=== PATIENT | female | born 1945 | race Caucasian/White ===

== ENCOUNTER 2016-08-03 20:03 | Inpatient (IN) | payer MEDICARE ==
[2016-08-03] VITALS (10 sets, daily range): BP systolic 119–204; BP diastolic 64–87; PULSE 114–121; RESP 24–26; TEMP 98.1; O2SAT 91–97
[~2016-08-03] VITALS: Ht 154.9 cm; Wt 77.0 kg
[~2016-08-03 20:03] MED LIST: ALBU0.086 INH; AMLO2.5T PO; ASPI325T PO; ATRO17AE INH; CLON.2 PO; COZA50TA PO; LACT20SO4 PO; LEVO500T3 PO; LOPE2 PO; PRAV20 PO
--- NOTE | 2016-08-03 20:34 | PD ---
HPI Chief Complaint: Respiratory Distress Time Seen by Provider: 20:16 Travel History International Travel<30 days: No Contact w/Intl Traveler<30days: No Traveled to known affect area: No History of Present Illness HPI 71-year-old female complains of wheezing and shortness of breath. Patient has history of COPD. Patient states that she was taking her medication this evening and choke on the pill. Patient states that a pill may went down the wrong way, down her trachea. Patient states that she had persistent coughing subsequently. Patient denies any chest pain. Patient states that she has shortness of breath. Patient also has history hypertension. Patient denies any abdominal pain. Patient denies any nausea vomiting diarrhea. EMS was called. Patient was given Solu-Medrol 125 mg IV and albuterol treatment [address] to ED. Patient is on clonidine 3 times a day for blood pressure however did not take her medications today. PFSH Past Medical History Heart Rhythm Problems: Yes (tachy) Cancer: No Cardiovascular Problems: Yes COPD: Yes Diabetes: Yes (BORDERLINE) Diminished Hearing: No Endocrine: Yes Genitourinary: No Hypertension: Yes Musculoskeletal: No Neurologic: Yes (blind since ) Psychiatric: No Respiratory: Yes Menopausal: Yes Past Surgical History Eye Surgery: Yes ( AN ) Social History Alcohol Use: Yes (ON OCCASION) Tobacco Use: No Substance Use: No Allergies-Medications (Allergen,Severity, Reaction): Coded Allergies: Penicillin (Verified Allergy, Intermediate, Rash, 08/03/16) Reported Meds & Prescriptions Reported Meds & Active Scripts Active Reported Catapres (Clonidine) 0.2 Mg Tab 0.2 Mg PO TID Duoneb (Ipratropium-Albuterol Neb) 0.5-2.5 Mg/3 Ml Neb 1 Nebule INH Q4HR NEB Albuterol Neb (Albuterol Sulfate) 2.5 Mg/0.5 Ml Neb 2.5 Mg NEB Q4HR NEB PRN Note: The Albuterol Sulfate Inhalation Solution is concentrated and must be diluted. Read complete instructions carefully before using. Pravastatin 20 Mg Tab 20 Mg PO DAILY Cozaar (Losartan Potassium) 50 Mg Tab 50 Mg PO DAILY Review of Systems General / Constitutional: No: Fever Eyes: No: Visual changes HENT: No: Headaches Cardiovascular: No: Chest Pain or Discomfort Respiratory: Positive: Cough, Shortness of Breath, Wheezing Gastrointestinal: No: Abdominal Pain Genitourinary: No: Dysuria Musculoskeletal: No: Pain Skin: No Rash Neurologic: No: Weakness Psychiatric: No: Depression Endocrine: No: Polydipsia Hematologic/Lymphatic: No: Easy Bruising Physical Exam Narrative GENERAL: Well-nourished, well-developed patient. SKIN: Warm and dry. HEAD: Normocephalic. EYES: No scleral icterus. No injection or drainage. NECK: Supple, trachea midline. No JVD or lymphadenopathy. CARDIOVASCULAR: Regular rate and rhythm without murmurs, gallops, or rubs. RESPIRATORY: Breath sounds equal bilaterally. No accessory muscle use. Patient has moderate expiratory wheezes bilaterally. GASTROINTESTINAL: Abdomen soft, non-tender, nondistended. MUSCULOSKELETAL: No cyanosis, or edema. BACK: Nontender without obvious deformity. No CVA tenderness. Neurologic exam normal. Data Data Last Documented VS Vital Signs Date Time Temp Pulse Resp B/P Pulse Ox O2 Delivery O2 Flow Rate FiO2 08/03/16 23:59 97 Non-Rebreather 15.00 08/03/16 23:32 117 26 199/86 50 08/03/16 20:25 98.1 Orders Complete Blood Count With Diff (08/03/16 20:16) Comprehensive Metabolic Panel (08/03/16 20:16) B-Type Natriuretic Peptide (08/03/16 20:16) Act Partial Throm Time (Ptt) (08/03/16 20:16) Prothrombin Time / Inr (Pt) (08/03/16 20:16) Ckmb (Isoenzyme) Profile (08/03/16 20:16) Troponin I (08/03/16 20:16) Arterial Blood Gas (Abg) (08/03/16 20:16) Urinalysis - C+S If Indicated (08/03/16 20:16) Blood Culture (08/03/16 20:16) Iv Access Insert/Monitor (08/03/16 20:16) Electrocardiogram (08/03/16 20:16) Ecg Monitoring (08/03/16 20:16) Oximetry (08/03/16 20:16) Oxygen Administration (08/03/16 20:16) Chest, Single Ap (08/03/16 20:16) Albuterol-Ipratropium Neb (Duoneb Neb) (08/03/16 20:30) Lorazepam Inj (Ativan Inj) (08/03/16 21:30) Ct Thorax/ Chest W Iv Contrast (08/03/16 22:18) Hydralazine Inj (Apresoline Inj) (08/03/16 23:00) Iohexol 350 Inj (Omnipaque 350 Inj) (08/03/16 23:12) Hydralazine Inj (Apresoline Inj) (08/03/16 23:45) Albuterol-Ipratropium Neb (Duoneb Neb) (08/03/16 23:45) Levofloxacin 750 Mg Premix Inj (Levaquin (08/04/16 00:00) Pantoprazole Inj (Protonix Inj) (08/04/16 00:00) Levofloxacin 750 Mg Premix Inj (Levaquin (08/04/16 23:00) Methylprednisolone So Succ Inj (Solumedr (08/04/16 00:00) Budeson-Formot 160-4.5 Mg Inh (Symbicort (08/04/16 00:00) Guaifenesin Er (Mucinex Er) (08/04/16 09:00) Albuterol-Ipratropium Neb (Duoneb Neb) (08/04/16 08:00) Albuterol-Ipratropium Neb (Duoneb Neb) (08/04/16 00:00) ^ Initiate Protocol (08/03/16 23:55) ^ Instruction (08/03/16 23:55) [facility] Nursing Information (08/04/16 00:00) Chlorhexidine 2% Cloth (Chlorhexidine 2% (08/04/16 04:00) Chlorhexidine 2% Cloth (Chlorhexidine 2% (08/04/16 00:00) Mrsa Pcr Surveillance (08/03/16 23:55) Admit To Inpatient (08/03/16 ) Vital Signs (Adult) Q4H (08/03/16 23:55) Activity Oob With Assistance (08/03/16 23:55) Rn Hematology / Telemetry .CONTINUOUS (08/03/16 23:55) Intake + Output MOIRA.QSHIFT (08/03/16 23:55) Diet Regular Basic (08/04/16 Breakfast) Sodium Chloride 0.9% Flush (Ns Flush) (08/04/16 00:00) Sodium Chloride 0.9% Flush (Ns Flush) (08/04/16 09:00) Ondansetron Inj (Zofran Inj) (08/04/16 00:00) Bisacodyl Supp (Dulcolax Supp) (08/04/16 00:00) Comprehensive Metabolic Panel (08/04/16 06:00) Complete Blood Count With Diff (08/04/16 06:00) Scd Bilateral/Knee High MOIRA.BID (08/03/16 23:55) Carlos Bilateral/Knee High MOIRA.QSHIFT (08/03/16 23:55) Acetaminophen (Tylenol) (08/04/16 00:00) Acetamin-Hydrocod 325-5 Mg ([place] 5-325 (08/04/16 00:00) Acetamin-Hydrocod 325-10 Mg ([place] 10-32 (08/04/16 00:00) Inpatient Certification (08/03/16 ) Clonidine (Catapres) (08/04/16 09:00) Losartan (Cozaar) (08/04/16 09:00) Pravastatin (Pravachol) (08/04/16 09:00) Admit Order (Ed Use Only) (08/03/16 23:58) Labs Laboratory Tests Test 08/03/16 08/03/16 20:23 20:30 White Blood Count 13.6 TH/MM3 Red Blood Count 4.83 MIL/MM3 Hemoglobin 14.9 GM/DL Hematocrit 43.0 % Mean Corpuscular Volume 89.0 FL Mean Corpuscular Hemoglobin 30.8 PG Mean Corpuscular Hemoglobin 34.6 % Concent Red Cell Distribution Width 13.6 % Platelet Count 298 TH/MM3 Mean Platelet Volume 8.0 FL Neutrophils (%) (Auto) 80.8 % Lymphocytes (%) (Auto) 12.6 % Monocytes (%) (Auto) 5.5 % Eosinophils (%) (Auto) 0.5 % Basophils (%) (Auto) 0.6 % Neutrophils # (Auto) 11.0 TH/MM3 Lymphocytes # (Auto) 1.7 TH/MM3 Monocytes # (Auto) 0.7 TH/MM3 Eosinophils # (Auto) 0.1 TH/MM3 Basophils # (Auto) 0.1 TH/MM3 CBC Comment DIFF FINAL Differential Comment Prothrombin Time 10.5 SEC Prothromb Time International 1.0 RATIO Ratio Activated Partial 25.1 SEC Thromboplast Time Sodium Level 140 MEQ/L Potassium Level 3.0 MEQ/L Chloride Level 101 MEQ/L Carbon Dioxide Level 27.6 MEQ/L Anion Gap 11 MEQ/L Blood Urea Nitrogen 16 MG/DL Creatinine 1.22 MG/DL Estimat Glomerular Filtration 43 ML/MIN Rate Random Glucose 138 MG/DL Calcium Level 9.8 MG/DL Total Bilirubin 0.3 MG/DL Aspartate Amino Transf 23 U/L (AST/SGOT) Alanine Aminotransferase 36 U/L (ALT/SGPT) Alkaline Phosphatase 65 U/L Total Creatine Kinase 86 U/L Troponin I 0.09 NG/ML B-Type Natriuretic Peptide 55 PG/ML Total Protein 8.4 GM/DL Albumin 4.3 GM/DL Urine Color LIGHT-YELLOW Urine Turbidity CLEAR Urine pH 6.5 Urine Specific [place] 1.007 Urine Protein 100 mg/dL Urine Glucose (UA) NEG mg/dL Urine Ketones NEG mg/dL Urine Occult Blood NEG Urine Nitrite NEG Urine Bilirubin NEG Urine Urobilinogen LESS THAN 2.0 MG/DL Urine Leukocyte Esterase NEG Urine RBC 2 /hpf Urine WBC 1 /hpf Microscopic Urinalysis Comment CULT NOT INDICATED Blood Gas Puncture Site RT RADIAL Blood Gas Patient Temperature 98.6 Blood Gas HCO3 23 mmol/L Blood Gas Base Excess -0.8 mmol/L Blood Gas Oxygen Saturation 89 % Arterial Blood pH 7.41 Arterial Blood Partial 38 mmHg Pressure CO2 Arterial Blood Partial 61 mmHG Pressure O2 Arterial Blood Oxygen Content 19.4 Vol % Arterial Blood 1.8 % Carboxyhemoglobin Arterial Blood Methemoglobin 2.0 % Blood Gas Hemoglobin 15.6 G/DL Oxygen Delivery Device NASAL CANNULA Blood Gas Liter Flow 3 L/M [facility] Medical Decision Making Medical Screen Exam Complete: Yes Emergency Medical Condition: Yes Differential Diagnosis Differential diagnosis including acute exacerbation COPD, medication aspiration. Narrative Course 71-year-old female with coughing, wheezing, shortness of breath after she was taking her medication this evening. There is a possibility that a pill went down her trachea. Patient is wheezing now. No stridor. Patient was given albuterol 2 treatment and Solu-Medrol [address] IV [address] the way to ED. Albuterol with Atrovent unit dose treatment 2 given in the ED. 11:46 PM. Repeat albuterol with Atrovent unit treatment times one. Levaquin 750 g IV given. Hydralazine 10 mg IV 2 for blood pressure control. Diagnosis Primary Impression: COPD with acute exacerbation Additional Impression: Hypertension, uncontrolled Jose Wolfe MD Aug 03, 2016 20:34
[2016-08-03] MEDS ORDERED: COZA50TA PO (20:35)
[2016-08-03] MEDS ORDERED: PRAV20TA2 PO (20:35)
[2016-08-03] MEDS ORDERED: IPRASOL INH (20:35)
[2016-08-03] MEDS ORDERED: ALBU.5I NEB (20:35)
[2016-08-03] MEDS: RESP: ALBUTEROL 2.5 MG/IPRATROPIUM 0.5 MG NEB (SCH) INH ×2 (20:46→23:52)
--- NOTE | 2016-08-03 20:54 | RADRPT ---
EXAM DATE/TIME: 08/03/2016 20:42 [facility] COMPARISON: No previous studies available for comparison. INDICATIONS : Shortness of breath and cough. MEDICAL HISTORY : Chronic obstructive pulmonary disease. SURGICAL HISTORY : None. ENCOUNTER: Initial ACUITY: 1 day PAIN SCORE: 0/10 LOCATION: chest FINDINGS: A single view of the chest demonstrates the lungs to be symmetrically aerated without evidence of mas s, infiltrate or effusion. The cardiomediastinal contours are unremarkable. Osseous structures are intact. CONCLUSION: The lungs are clear. Klaus Wyatt MD on August 03, 2016 at 20:47 Board Certified Radiologist. This report was verified electronically.
[2016-08-03 21:12] LABS: BASOPHIL # 0.1 TH/MM3 (0-0.2); BASOPHIL % 0.6 % (0.0-2.0); EOSINOPHIL # 0.1 TH/MM3 (0-0.4); EOSINOPHIL % 0.5 % (0.0-4.0); HEMO FLAGS DIFF FINAL; LYMPH % 12.6 % (9.0-44.0); LYMPHOCYTE # 1.7 TH/MM3 (1.0-4.8); MEAN CORPUSCULAR HEMOGLOBIN 30.8 PG (27.0-34.0); MEAN CORPUSCULAR HGB CONC 34.6 % (32.0-36.0); MONO % 5.5 % (0.0-8.0); NEUT % 80.8 % (16.0-70.0); PLATELET COUNT 298 TH/MM3 (150-450); RED BLOOD COUNT 4.83 MIL/MM3 (4.00-5.30); RED CELL DISTRIBUTION WIDTH 13.6 % (11.6-17.2); WHITE BLOOD COUNT 13.6 TH/MM3 (4.0-11.0)
[2016-08-03 21:15] LABS: BLOOD, URINE NEG (NEG); GLUCOSE,URINE NEG (NEG); KETONE, URINE NEG (NEG); NITRITE,URINE NEG (NEG); PH, URINE 6.5 (5.0-8.5); URINE COLOR LIGHT-YELLOW (YELLW/STRAW)
[2016-08-03 21:17] LABS: COMMENT (UR) CULT NOT INDICATED; CULTURE IF INDICATED CULT NOT INDICATED
[2016-08-03 21:24] LABS: APTT (PATIENT) 25.1 SEC (24.3-30.1); PROTHROMBIN TIME - PATIENT 10.5 SEC (9.8-11.6)
[2016-08-03] MEDS ORDERED: LORazepam 2 MG/ML VIAL IV PUSH ONE (21:30)
[2016-08-03 21:33] LABS: ANION GAP 11 MEQ/L (5-15); AST (GOT) 23 U/L (15-37); BICARBONATE 27.6 MEQ/L (21.0-32.0); BLOOD UREA NITROGEN 16 MG/DL (7-18); CHLORIDE 101 MEQ/L (98-107); GLOMERULAR FILTRATION RATE 43 ML/MIN (>89); SODIUM (NA) 140 MEQ/L (136-145)
[2016-08-03 21:38] LABS: ALKALINE PHOSPHATASE 65 U/L (45-117); ALT (GPT) 36 U/L (10-53); TOTAL BILIRUBIN ADULT 0.3 MG/DL (0.2-1.0)
[2016-08-03 21:42] LABS: BLOOD GAS BASE EXCESS -0.8 mmol/L (-2-2); BLOOD GAS CARBOXYHEMOGLOBIN 1.8 % (0-4); BLOOD GAS HCO3 23 mmol/L (22-26); BLOOD GAS O2 HGB SATURATION 89 % (90-100); BLOOD GAS OXYGEN CONTENT 19.4 Vol % (12.0-20.0); BLOOD GAS PCO2 38 mmHg (38-42); BLOOD GAS PO2 61 mmHG (61-120); BLOOD GAS TOTAL HGB 15.6 G/DL (12.0-16.0); TEMP CORR TO 98.6
[2016-08-03 21:43] LABS: CRITICAL VALUE YES; DRAW SITE RT RADIAL; LITER FLOW 3 L/M; NUMBER OF ARTERIAL PUNCTURES 1; OXYGEN DEVICE NASAL CANNULA; STAT YES; ULNAR PULSE PRESENT
[2016-08-03 22:18] LABS: CREATINE KINASE 86 U/L (26-192)
[2016-08-03] MEDS ORDERED: CLON.2 PO (22:45)
[2016-08-03] MEDS ORDERED: hydrALAZINE HCL 20 MG/ML VIAL IV PUSH ONE ×2 (23:00→23:45)
[2016-08-03] MEDS ORDERED: IOHEXOL 350 MG/ML 10 ML VIAL (for RAD DIAG) IV ONE (23:12)
--- NOTE | 2016-08-03 23:31 | RADRPT ---
EXAM DATE/TIME: 08/03/2016 23:11 [facility] COMPARISON: CHEST SINGLE AP, August 03, 2016, 20:42. INDICATIONS : Shortness of breath. Possible pill aspiration. IV CONTRAST: 70 cc Omnipaque 350 (iohexol) IV RADIATION DOSE: 4.65 CTDIvol (mGy) MEDICAL HISTORY : Cardiovascular disease. Chronic obstructive pulmonary disease. Hypertension. SURGICAL HISTORY : None. ENCOUNTER: Initial ACUITY: 1 day PAIN SCALE: 2/10 LOCATION: chest TECHNIQUE: Volumetric scanning of the chest was performed. Using automated exposure control and adjustment of t he mA and/or kV according to patient size, radiation dose was kept as low as reasonably achievable to obtain optimal diagnostic quality images. FINDINGS: There is linear scarring versus subsegmental atelectasis right upper lobe with biapical parenchy mal scarring seen. Atherosclerotic calcifications of the aorta and coronary arteries are identified. In the lingula abutting the left ventricular apex, a soft tissue density nodule is seen measuring 2.4 x 1.4 cm. There are degenerative changes of the spine seen. There are no obvious endobronchial radio paque foreign bodies however there is a low attenuation focus in the bronchus intermedius measuring 9 mm which could reflect mucous plugging, secretions or endobronchial mass. No high-density foci are s een. CONCLUSION: There appears to be a low density focus in the bronchus intermedius as described above not a typical appearance for a aspirated foreign body however mucous plugging or mass, secretions can have this monica earance. Michael Judd MD on August 03, 2016 at 23:24 Board Certified Radiologist. This report was verified electronically.
[2016-08-03] MEDS ORDERED: RESP: ALBUTEROL 2.5 MG/IPRATROPIUM 0.5 MG NEB (SCH) INH ONE (23:45)
--- NOTE | 2016-08-03 23:59 | HHI.HP ---
[facility] Physician Freddy Colmenares MD Admission Diagnosis Diagnoses: Travel History International Travel<30 Days: No Contact w/Intl Traveler <30 Da: No Traveled to Known Affected Are: No Past Family Social History Allergies: Coded Allergies: Penicillin (Verified Allergy, Intermediate, Rash, 08/03/16) Physical Exam Vital Signs Vital Signs Date Time Temp Pulse Resp B/P Pulse Ox O2 Delivery O2 Flow Rate FiO2 08/03/16 23:32 117 26 199/86 94 Venturi Mask 50 08/03/16 22:43 117 24 204/85 95 Venturi Mask 50 08/03/16 21:34 114 24 198/87 95 Venturi Mask 50 08/03/16 21:14 116 26 195/86 94 Venturi Mask 50 08/03/16 21:13 94 Venturi Mask 50 08/03/16 20:54 96 Venturi Mask 6.00 50 08/03/16 20:36 96 Nasal Cannula 2 08/03/16 20:36 95 Nasal Cannula 2 08/03/16 20:30 92 Nasal Cannula 4.00 08/03/16 20:30 90 Room Air 08/03/16 20:25 98.1 121 26 119/64 91 Physical Exam GENERAL: This is a well-nourished, well-developed patient, in no apparent distress. SKIN: No rashes, ecchymoses or lesions. Cool and dry. HEAD: Atraumatic. Normocephalic. No temporal or scalp tenderness. EYES: Pupils equal round and reactive. Extraocular motions intact. No scleral icterus. No injection or drainage. ENT: Nose without bleeding, purulent drainage or septal hematoma. Throat without erythema, tonsillar hypertrophy or exudate. Uvula midline. Airway patent. NECK: Trachea midline. No JVD or lymphadenopathy. Supple, nontender, no meningeal signs. CARDIOVASCULAR: Regular rate and rhythm without murmurs, gallops, or rubs. RESPIRATORY: Clear to auscultation. Breath sounds equal bilaterally. No wheezes , rales, or rhonchi. GASTROINTESTINAL: Abdomen soft, non-tender, nondistended. No hepato-splenomegaly , or palpable masses. No guarding. MUSCULOSKELETAL: Extremities without clubbing, cyanosis, or edema. No joint tenderness, effusion, or edema noted. No calf tenderness. Negative Homans sign bilaterally. NEUROLOGICAL: Awake and alert. Cranial nerves II through XII intact. Motor and sensory grossly within normal limits. Five out of 5 muscle strength in all muscle groups. Normal speech. Laboratory Laboratory Tests Test 08/03/16 08/03/16 20:23 20:30 White Blood Count 13.6 Red Blood Count 4.83 Hemoglobin 14.9 Hematocrit 43.0 Mean Corpuscular Volume 89.0 Mean Corpuscular Hemoglobin 30.8 Mean Corpuscular Hemoglobin 34.6 Concent Red Cell Distribution Width 13.6 Platelet Count 298 Mean Platelet Volume 8.0 Neutrophils (%) (Auto) 80.8 Lymphocytes (%) (Auto) 12.6 Monocytes (%) (Auto) 5.5 Eosinophils (%) (Auto) 0.5 Basophils (%) (Auto) 0.6 Neutrophils # (Auto) 11.0 Lymphocytes # (Auto) 1.7 Monocytes # (Auto) 0.7 Eosinophils # (Auto) 0.1 Basophils # (Auto) 0.1 CBC Comment DIFF FINAL Differential Comment Prothrombin Time 10.5 Prothromb Time International 1.0 Ratio Activated Partial 25.1 Thromboplast Time Sodium Level 140 Potassium Level 3.0 Chloride Level 101 Carbon Dioxide Level 27.6 Anion Gap 11 Blood Urea Nitrogen 16 Creatinine 1.22 Estimat Glomerular Filtration 43 Rate Random Glucose 138 Calcium Level 9.8 Total Bilirubin 0.3 Aspartate Amino Transf 23 (AST/SGOT) Alanine Aminotransferase 36 (ALT/SGPT) Alkaline Phosphatase 65 Total Creatine Kinase 86 Troponin I 0.09 B-Type Natriuretic Peptide 55 Total Protein 8.4 Albumin 4.3 Urine Color LIGHT-YELLOW Urine Turbidity CLEAR Urine pH 6.5 Urine Specific [place] 1.007 Urine Protein 100 Urine Glucose (UA) NEG Urine Ketones NEG Urine Occult Blood NEG Urine Nitrite NEG Urine Bilirubin NEG Urine Urobilinogen LESS THAN 2.0 Urine Leukocyte Esterase NEG Urine RBC 2 Urine WBC 1 Microscopic Urinalysis Comment CULT NOT INDICATED Blood Gas Puncture Site RT RADIAL Blood Gas Patient Temperature 98.6 Blood Gas HCO3 23 Blood Gas Base Excess -0.8 Blood Gas Oxygen Saturation 89 Arterial Blood pH 7.41 Arterial Blood Partial 38 Pressure CO2 Arterial Blood Partial 61 Pressure O2 Arterial Blood Oxygen Content 19.4 Arterial Blood 1.8 Carboxyhemoglobin Arterial Blood Methemoglobin 2.0 Blood Gas Hemoglobin 15.6 Oxygen Delivery Device NASAL CANNULA Blood Gas Liter Flow 3 Date/Time Procedure Status Source Growth 08/03/16 20:23 Aerobic Blood Culture Received Blood Peripheral Pending 08/03/16 20:23 Anaerobic Blood Culture Received Blood Peripheral Pending Result Diagram: 08/03/16202208/03/162022 Physician Certification Order for Inpatient Services The services are ordered in accordance with Medicare regulations or non- Medicare payer requirements, as applicable. In the case of services not specified as inpatient-only, they are appropriately provided as inpatient services in accordance with the 2-midnight benchmark. days is the estimated time the patient will need to remain in the hospital, assuming treatment plan goals are met and no additional complications. Marcela Matias MD Aug 03, 2016 23:59
[2016-08-04] VITALS (24 sets, daily range): BP systolic 83–238; BP diastolic 44–111; PULSE 103–150; RESP 14–32; TEMP 97.9–98.6; O2SAT 96–100
[2016-08-04] MEDS ORDERED: ACETAMINOPHEN/HYDROcodone 325 MG/10 MG TAB PO PRN
[2016-08-04] MEDS ORDERED: LEVOFLOXACIN 750 MG PREMIX INJ 150 ML IV ONE
[2016-08-04] MEDS ORDERED: RESP: ALBUTEROL 2.5 MG/IPRATROPIUM 0.5 MG NEB (PRN) NEB
[2016-08-04] MEDS ORDERED: PANTOPRAZOLE SODIUM 40 MG VIAL IV PUSH ONE
[2016-08-04] MEDS ORDERED: SODIUM CHLORIDE 0.9% FLUSH 5 ML FLUSH FLUSH PRN
[2016-08-04] MEDS ORDERED: ACETAMINOPHEN/HYDROcodone 325 MG/5 MG TAB PO PRN
[2016-08-04] MEDS ORDERED: BISACODYL 10 MG SUPP PR PRN
[2016-08-04] MEDS ORDERED: ONDANSETRON HCL 4 MG/2 ML VIAL IVP PRN
[2016-08-04] MEDS ORDERED: LORazepam 2 MG/ML VIAL IV PUSH ONE (00:15)
[2016-08-04] MEDS ORDERED: hydrALAZINE HCL 20 MG/ML VIAL IV PUSH ONE (00:15)
[2016-08-04] MEDS ORDERED: ROCURONIUM INJ 50 MG/5 ML VIAL ONE (00:35)
[2016-08-04] MEDS ORDERED: ETOMIDATE 20 MG/10 ML VIAL ONE (00:35)
[2016-08-04] MEDS ORDERED: PROPOFOL 1000 MG/100 ML INJ 100 ML ONE (00:38)
[2016-08-04] MEDS ORDERED: ETOMIDATE 20 MG/10 ML VIAL IV PUSH ONE (00:45)
[2016-08-04] MEDS ORDERED: ROCURONIUM INJ 50 MG/5 ML VIAL IV ONE (00:45)
[2016-08-04] MEDS ORDERED: PROPOFOL 1000 MG/100 ML INJ 100 ML IV SCH ×2 (00:45)
[2016-08-04] MEDS ORDERED: ADENOSINE IV SOLN 3 MG/ML 2 ML VIAL ONE (00:49)
[2016-08-04] MEDS ORDERED: DILTIAZEM HCL 25 MG/5 ML VIAL ONE (01:00)
[2016-08-04] MEDS ORDERED: DILTIAZEM HCL 25 MG/5 ML VIAL IV ONE (01:00)
[2016-08-04] MEDS ORDERED: DILTIAZEM HCL 25 MG/5 ML VIAL IVP ONE (01:15)
[2016-08-04] MEDS ORDERED: DILTIAZEM INJ 125 MG in SODIUM CHLORIDE 0.9% INJ 100 ML IV SCH (01:15)
--- NOTE | 2016-08-04 01:24 | PD.CONS ---
HPI Service Critical Care Medicine Consult Requested By Primary Care Physician Freddy Colmenares MD History of Present Illness 71-year-old female presents complaining of wheezing and shortness of breath. Patient has history of COPD. She was taking her medication this evening and choke on the pill. The pill may went down the wrong way, down her trachea. She has had persistent coughing since then and felt wheezing. She denies any chest pain. She has had shortness of breat, was treated with aerosols and i.v. steroids, however without significant improvement and was intubated by ED attending. Review of Systems ROS Unable to obtain, patient is sedated and intubated Past Family Social History Allergies: Coded Allergies: Penicillin (Verified Allergy, Intermediate, Rash, 08/03/16) Past Medical History Hypertension for 7 years. COPD, patient states that she's never been on medication for this thinks she needs a nebulizer machine. Past Surgical History Left ankle surgery Eye surgery as an infant. Reported Medications Catapres (Clonidine) 0.2 Mg Tab 0.2 Mg PO TID Duoneb (Ipratropium-Albuterol Neb) 0.5-2.5 Mg/3 Ml Neb 1 Nebule INH Q4HR NEB Albuterol Neb (Albuterol Sulfate) 2.5 Mg/0.5 Ml Neb 2.5 Mg NEB Q4HR NEB PRN Note: The Albuterol Sulfate Inhalation Solution is concentrated and must be diluted. Read complete instructions carefully before using. Pravastatin 20 Mg Tab 20 Mg PO DAILY Cozaar (Losartan Potassium) 50 Mg Tab 50 Mg PO DAILY Active Ordered Medications Current Medications Medications (Trade) Dose Ordered Sig/Pavan Route PRN Reason Start Time Stop Time Status Last Admin Dose Admin Budesonide/ Formoterol Fumarate (Symbicort 160-4.5 Inh) 2 puff Q12HR INH 08/04/16 00:00 Guaifenesin (Mucinex Er) 600 mg BID PO 08/04/16 09:00 Miscellaneous Information 1 Q361D XX 08/04/16 00:00 Chlorhexidine Gluconate (Chlorhexidine 2% Cloth) 3 pack Taper DAILY@04 TOP 08/04/16 04:00 07/31/17 03:59 Chlorhexidine Gluconate (Chlorhexidine 2% Cloth) 3 pack UNSCH PRN TOP HYGIENIC CARE 08/04/16 00:00 Bisacodyl (Dulcolax Supp) 10 mg DAILY PRN OR CONSTIPATION 08/04/16 00:00 Acetaminophen (Tylenol) 650 mg Q6H PRN PO FEVER/PAIN SCALE 1 TO 2 08/04/16 00:00 Acetaminophen/ Hydrocodone Bitart ([place] 5-325 Mg) 1 tab Q4H PRN PO PAIN SCALE 3 TO 5 08/04/16 00:00 Acetaminophen/ Hydrocodone Bitart ([place] 10-325 Mg) 1 tab Q4H PRN PO PAIN SCALE 6 TO 10 08/04/16 00:00 Clonidine (Catapres) 0.2 mg TID PO 08/04/16 09:00 Losartan Potassium (Cozaar) 50 mg DAILY PO 08/04/16 09:00 Pravastatin Sodium 20 mg 20 mg DAILY PO 08/04/16 09:00 Levofloxacin/ Dextrose 150 ml @ 100 mls/hr Q48H IV 08/06/16 00:00 Diltiazem HCl 125 mg/Sodium Chloride 125 ml @ 0 mls/hr TITRATE IV 08/04/16 01:15 08/04/16 01:44 Potassium Chloride 100 ml @ 50 mls/hr BOLUS ONCE IV 08/04/16 01:30 08/04/16 03:29 Sodium Chloride (NS 1000 ml Inj) 1,000 ml @ 84 mls/hr [id number] IV 08/04/16 01:18 IV Flush (NS Flush) 2 ml UNSCH PRN IV FLUSH FLUSH AFTER USING IV ACCESS 08/04/16 01:30 IV Flush (NS Flush) 2 ml BID IV FLUSH 08/04/16 09:00 Acetaminophen (Tylenol) 650 mg Q6H PRN PO FEVER >101F 08/04/16 01:30 Morphine Sulfate (Morphine Inj) 2 mg Q2H PRN IV PAIN SCALE 6 TO 10 08/04/16 01:30 Famotidine (Pepcid Inj) 10 mg Q12HR IV PUSH 08/04/16 09:00 Artificial Tears (Tears Naturale Opth Soln) 1 drop TID EACH EYE 08/04/16 09:00 Ondansetron HCl (Zofran Inj) 4 mg Q6H PRN IV NAUSEA OR VOMITING 08/04/16 01:30 Metoclopramide HCl (Reglan Inj) 10 mg Q6H PRN IV NAUSEA OR VOMITING 08/04/16 01:30 Docusate Sodium (Colace Liq) 100 mg Q12H G-TUBE 08/04/16 09:00 Heparin Sodium (Porcine) (Heparin Inj) 5,000 units Q8H SQ 08/04/16 02:00 Miscellaneous Information 1 Q361D XX 08/04/16 01:30 Chlorhexidine Gluconate (Chlorhexidine 2% Cloth) 3 pack Taper DAILY@04 TOP 08/04/16 04:00 07/31/17 03:59 Chlorhexidine Gluconate 3 pack 3 pack UNSCH PRN TOP HYGIENIC CARE 08/04/16 01:30 Propofol (Diprivan 1000 Mg/100ml Inj) 100 ml @ 0 mls/hr TITRATE IV 08/04/16 01:30 Hydralazine HCl (Apresoline Inj) 20 mg Q4H PRN IV PUSH SBP>160, DBP>90 08/04/16 01:30 Methylprednisolone Sodium Succinate (SoluMEDROL INJ) 40 mg Q6HR IV PUSH 08/04/16 06:00 Family History Noncontributory Social History No alcohol or illicit drug abuse Physical Exam Vital Signs Vital Signs Date Time Temp Pulse Resp B/P Pulse Ox O2 Delivery O2 Flow Rate FiO2 08/04/16 00:33 99 Non-Rebreather 08/04/16 00:33 141 219/89 08/04/16 00:26 BiPAP 08/04/16 00:12 133 26 212/111 99 Non-Rebreather 08/04/16 00:05 99 Non-Rebreather 08/03/16 23:59 97 Non-Rebreather 15.00 08/03/16 23:32 117 26 199/86 94 Venturi Mask 50 08/03/16 22:43 117 24 204/85 95 Venturi Mask 50 08/03/16 21:34 114 24 198/87 95 Venturi Mask 50 08/03/16 21:14 116 26 195/86 94 Venturi Mask 50 08/03/16 21:13 94 Venturi Mask 50 08/03/16 20:54 96 Venturi Mask 6.00 50 08/03/16 20:36 96 Nasal Cannula 2 08/03/16 20:36 95 Nasal Cannula 2 08/03/16 20:30 92 Nasal Cannula 4.00 08/03/16 20:30 90 Room Air 08/03/16 20:25 98.1 121 26 119/64 91 Physical Exam GENERAL: Well-nourished, well-developed patient, sedated and intubated SKIN: Warm and dry. HEAD: Normocephalic. EYES: No scleral icterus. No injection or drainage. NECK: Supple, trachea midline. No JVD or lymphadenopathy. CARDIOVASCULAR: Regular rate and rhythm without murmurs, gallops, or rubs. RESPIRATORY: Breath sounds equal bilaterally. No accessory muscle use. GASTROINTESTINAL: Abdomen soft, non-tender, nondistended. MUSCULOSKELETAL: No cyanosis, or edema. BACK: Nontender without obvious deformity. No CVA tenderness. Laboratory Laboratory Tests Test 08/03/16 08/03/16 20:23 20:30 White Blood Count 13.6 Red Blood Count 4.83 Hemoglobin 14.9 Hematocrit 43.0 Mean Corpuscular Volume 89.0 Mean Corpuscular Hemoglobin 30.8 Mean Corpuscular Hemoglobin 34.6 Concent Red Cell Distribution Width 13.6 Platelet Count 298 Mean Platelet Volume 8.0 Neutrophils (%) (Auto) 80.8 Lymphocytes (%) (Auto) 12.6 Monocytes (%) (Auto) 5.5 Eosinophils (%) (Auto) 0.5 Basophils (%) (Auto) 0.6 Neutrophils # (Auto) 11.0 Lymphocytes # (Auto) 1.7 Monocytes # (Auto) 0.7 Eosinophils # (Auto) 0.1 Basophils # (Auto) 0.1 CBC Comment DIFF FINAL Differential Comment Prothrombin Time 10.5 Prothromb Time International 1.0 Ratio Activated Partial 25.1 Thromboplast Time Sodium Level 140 Potassium Level 3.0 Chloride Level 101 Carbon Dioxide Level 27.6 Anion Gap 11 Blood Urea Nitrogen 16 Creatinine 1.22 Estimat Glomerular Filtration 43 Rate Random Glucose 138 Calcium Level 9.8 Total Bilirubin 0.3 Aspartate Amino Transf 23 (AST/SGOT) Alanine Aminotransferase 36 (ALT/SGPT) Alkaline Phosphatase 65 Total Creatine Kinase 86 Troponin I 0.09 B-Type Natriuretic Peptide 55 Total Protein 8.4 Albumin 4.3 Urine Color LIGHT-YELLOW Urine Turbidity CLEAR Urine pH 6.5 Urine Specific [place] 1.007 Urine Protein 100 Urine Glucose (UA) NEG Urine Ketones NEG Urine Occult Blood NEG Urine Nitrite NEG Urine Bilirubin NEG Urine Urobilinogen LESS THAN 2.0 Urine Leukocyte Esterase NEG Urine RBC 2 Urine WBC 1 Microscopic Urinalysis Comment CULT NOT INDICATED Blood Gas Puncture Site RT RADIAL Blood Gas Patient Temperature 98.6 Blood Gas HCO3 23 Blood Gas Base Excess -0.8 Blood Gas Oxygen Saturation 89 Arterial Blood pH 7.41 Arterial Blood Partial 38 Pressure CO2 Arterial Blood Partial 61 Pressure O2 Arterial Blood Oxygen Content 19.4 Arterial Blood 1.8 Carboxyhemoglobin Arterial Blood Methemoglobin 2.0 Blood Gas Hemoglobin 15.6 Oxygen Delivery Device NASAL CANNULA Blood Gas Liter Flow 3 Date/Time Procedure Status Source Growth 08/03/16 20:23 Aerobic Blood Culture Received Blood Peripheral Pending 08/03/16 20:23 Anaerobic Blood Culture Received Blood Peripheral Pending Result Diagram: 08/03/16202208/03/162022 Imaging Last [address] 08/03/162217 Signed Impressions: Service Date/Time: Wednesday, August 03, 2016 23:11 - CONCLUSION: There appears to be a low density focus in the bronchus intermedius as described above not a typical appearance for a aspirated foreign body however mucous plugging or mass, secretions can have this appearance. Michael Judd MD Chest X-Ray 08/03/162015 Signed Impressions: Service Date/Time: Wednesday, August 03, 2016 20:42 - CONCLUSION: The lungs are clear. Klaus Wyatt MD Assessment and Plan Problem List: (1) Hypertensive urgency ICD Code: I10 Status: Acute (2) COPD with acute exacerbation ICD Code: J44.1 Status: Acute (3) Acute respiratory failure ICD Code: J96.00 Status: Acute Assessment and Plan Respiratory failure - mechanical ventilation - repeat ABG and CXR - aerosols scheduled and PRN COPD exacerbation - i.v. steroids - duonebs - steroid taper off when wheezing improves HTN - Cardene gtt - Clonidine - Losartan - Hydralazine PRN - SBP goal < 160 Nutrition - TF DVT/GI prophylaxis Lovenox/Pepcid Critical Care: The total critical care time was 35 minutes. Time to perform other separately billable procedures was not included in the critical care time. Miguel Sanders MD Aug 04, 2016 01:24
[2016-08-04] MEDS ORDERED: CHLORHEXIDINE GLUCONATE 2 % 1 PACK (2 CLOTHS) TOP PRN ×2 (01:30)
[2016-08-04] MEDS ORDERED: SODIUM CHLORIDE 0.9% FLUSH 5 ML FLUSH IV FLUSH PRN (01:30)
[2016-08-04] MEDS ORDERED: MISCELLANEOUS NURSING INFORMATION XX SCH ×2 (01:30)
[2016-08-04] MEDS ORDERED: POTASSIUM CHLOR 20 MEQ PREMIX 100 ML IV ONE (01:30)
[2016-08-04] MEDS ORDERED: MORPHINE SULFATE 4 MG/ML INJ IV PRN (01:30)
[2016-08-04] MEDS ORDERED: ACETAMINOPHEN 325 MG TAB PO PRN ×2 (01:30)
[2016-08-04] MEDS ORDERED: DILTIAZEM HCL 25 MG/5 ML VIAL IVP PRN (01:30)
[2016-08-04] MEDS ORDERED: RESP: ALBUTEROL 2.5 MG/IPRATROPIUM 0.5 MG NEB (PRN) INH (01:30)
--- NOTE | 2016-08-04 01:30 | RADRPT ---
EXAM DATE/TIME: 08/04/2016 01:21 [facility] COMPARISON: CHEST SINGLE AP, August 03, 2016, 20:42. INDICATIONS : Evaluate ETT placement and OG placement. MEDICAL HISTORY : Hypertension. Chronic obstructive pulmonary disease. Cardiovascular disease. SURGICAL HISTORY : None. ENCOUNTER: Initial ACUITY: 1 day PAIN SCORE: Non-responsive. LOCATION: Bilateral chest FINDINGS: OG tube courses beneath the diaphragm. Endotracheal tube tip terminates 3 cm above the ally. There is no consolidation or effusion. Osseous structures are intact.CONCLUSION: Endotracheal tube as described above and OG tube as above. Michael Judd MD on August 04, 2016 at 1:28 Board Certified Radiologist. This report was verified electronically.
[2016-08-04] MEDS: SODIUM CHLOR 0.9% 1000 ML INJ 1,000 ML IV SCH ×2 (02:15→13:17)
[2016-08-04] MEDS: HEPARIN SODIUM - SQ 10,000 UNITS/ML VIAL SQ SCH ×3 (02:29→18:23)
[2016-08-04] MEDS: CHLORHEXIDINE GLUCONATE 2 % 1 PACK (2 CLOTHS) TOP SCH (02:29)
[2016-08-04] MEDS: RESP: ALBUTEROL 2.5 MG/IPRATROPIUM 0.5 MG NEB (SCH) INH ×6 (03:14→23:44)
[2016-08-04] MEDS ORDERED: CHLORHEXIDINE GLUCONATE 2 % 1 PACK (2 CLOTHS) TOP SCH (04:00)
[2016-08-04] MEDS: PROPOFOL 1000 MG/100 ML INJ 100 ML IV SCH ×2 (04:49→09:39)
[2016-08-04] MEDS ORDERED: methylPREDNISolone SOD SUCC 40 MG/1 ML VIAL IV PUSH SCH ×2 (06:00)
[2016-08-04 07:08] LABS: AUTOMATED NEUTROPHIL # 15.5 TH/MM3 (1.8-7.7); BASOPHIL # 0.1 TH/MM3 (0-0.2); BASOPHIL % 0.3 % (0.0-2.0); HEMATOCRIT 45.1 % (35.0-46.0); HEMO FLAGS DIFF FINAL; LYMPH % 4.3 % (9.0-44.0); LYMPHOCYTE # 0.8 TH/MM3 (1.0-4.8); MEAN CELL VOLUME 90.6 FL (80.0-100.0); MEAN CORPUSCULAR HEMOGLOBIN 29.6 PG (27.0-34.0); MEAN CORPUSCULAR HGB CONC 32.7 % (32.0-36.0); MONO % 7.4 % (0.0-8.0); PLATELET COUNT 323 TH/MM3 (150-450); RED BLOOD COUNT 4.98 MIL/MM3 (4.00-5.30); RED CELL DISTRIBUTION WIDTH 13.7 % (11.6-17.2); WHITE BLOOD COUNT 17.6 TH/MM3 (4.0-11.0)
[2016-08-04 07:29] LABS: ALT (GPT) 35 U/L (10-53); ANION GAP 17 MEQ/L (5-15); AST (GOT) 33 U/L (15-37); BICARBONATE 20.8 MEQ/L (21.0-32.0); BLOOD UREA NITROGEN 18 MG/DL (7-18); CHLORIDE 102 MEQ/L (98-107); GLOMERULAR FILTRATION RATE 34 ML/MIN (>89); POTASSIUM 3.5 MEQ/L (3.5-5.1); SODIUM (NA) 140 MEQ/L (136-145)
[2016-08-04 07:32] LABS: ALKALINE PHOSPHATASE 56 U/L (45-117); TOTAL BILIRUBIN ADULT 0.5 MG/DL (0.2-1.0)
[2016-08-04] MEDS ORDERED: RESP: ALBUTEROL 2.5 MG/IPRATROPIUM 0.5 MG NEB (SCH) NEB (08:00)
[2016-08-04] MEDS: ARTIFICIAL TEARS OPTH SOLN 15 ML BTL EACH EYE SCH ×3 (08:22→18:25)
[2016-08-04] MEDS: SODIUM CHLORIDE 0.9% FLUSH 5 ML FLUSH IV FLUSH SCH ×2 (08:23→22:00)
[2016-08-04] MEDS: cloNIDine HCL 0.2 MG TAB PO SCH ×3 (08:23→18:00)
[2016-08-04] MEDS: BUDESONIDE-FORMOTEROL 160/4.5 MCG INHALER INH SCH ×3 (08:23→21:00)
[2016-08-04] MEDS ORDERED: DOCUSATE SODIUM 100 MG/10 ML UDC G-TUBE SCH (09:00)
[2016-08-04] MEDS ORDERED: LOSARTAN 50 MG TAB PO SCH (09:00)
[2016-08-04] MEDS ORDERED: FAMOTIDINE 20 MG/2 ML VIAL IV PUSH SCH (09:00)
[2016-08-04] MEDS ORDERED: PRAVASTATIN SOD 20 MG TAB PO SCH ×2 (09:00→21:00)
[2016-08-04] MEDS ORDERED: guaiFENesin E.R. 600 MG TAB PO SCH (09:00)
[2016-08-04] MEDS ORDERED: SODIUM CHLORIDE 0.9% FLUSH 5 ML FLUSH FLUSH SCH (09:00)
[2016-08-04] MEDS ORDERED: GLUCAGON 1 MG/ML VIAL OTHER PRN (09:45)
[2016-08-04] MEDS ORDERED: DEXTROSE 50% IN WATER 50 ML VIAL(D50) IV PUSH PRN (09:45)
[2016-08-04] MEDS ORDERED: MIDAZOLAM 100 MG/ML INJ 100 ML IV SCH (09:45)
[2016-08-04] MEDS ORDERED: SENNOSIDES 8.6 MG TAB PO PRN ×2 (09:45)
[2016-08-04] MEDS ORDERED: MAGNESIUM SULFATE 1 GM PREMIX 100 ML IV ONE (09:45)
[2016-08-04] MEDS ORDERED: POTASSIUM CL 40 MEQ/30 ML LIQ UDC PO ONE (09:45)
[2016-08-04] MEDS: fentaNYL DRIP 250 ML IV SCH (09:55)
--- NOTE | 2016-08-04 09:58 | HHI.CCPN ---
Subjective Remarks/Hospital Course 71-year-old female presents complaining of wheezing and shortness of breath. Patient has history of COPD. She was taking her medication this evening and choke on the pill. The pill may went down the wrong way, down her trachea. She has had persistent coughing since then and felt wheezing. She denies any chest pain. She has had shortness of breat, was treated with aerosols and i.v. steroids, however without significant improvement and was intubated by ED attending. Subjective 08/04: Afebrile. Awake on the ventilator. Currently in sinus tachycardia. Tube feeds been initiated. No bowel movement. Objective Vital Signs Date Time Temp Pulse Resp B/P Pulse Ox O2 Delivery O2 Flow Rate FiO2 08/04/16 07:20 100 50 08/04/16 06:00 119 08/04/16 04:00 98.2 22 107/50 08/04/16 02:10 Ventilator 08/03/16 23:59 15.00 Result Diagram: 08/04/16 0337 08/04/16 0337 Other Results Microbiology Date/Time Procedure Status Source Growth 08/04/16 01:00 Gram Stain - Final Resulted Sputum Endotracheal 08/04/16 01:00 Sputum Culture Resulted Sputum Endotracheal Pending 08/03/16 20:23 Aerobic Blood Culture Received Blood Peripheral Pending 08/03/16 20:23 Anaerobic Blood Culture Received Blood Peripheral Pending Imaging Last Impressions Chest X-Ray 08/04/16 0109 Signed Impressions: Service Date/Time: Thursday, August 04, 2016 01:21 - CONCLUSION: Endotracheal tube as described above and OG tube as above. Michael Judd MD Chest CT 08/03/16 2218 Signed Impressions: Service Date/Time: Wednesday, August 03, 2016 23:11 - CONCLUSION: There appears to be a low density focus in the bronchus intermedius as described above not a typical appearance for a aspirated foreign body however mucous plugging or mass, secretions can have this appearance. Michael Judd MD Objective Remarks GENERAL: 71-year-old female, critically ill currently orotracheally intubated SKIN: Warm and dry. No rash HEAD: Normocephalic. EYES: No scleral icterus. No injection or drainage. NECK: Supple, trachea midline. No JVD or lymphadenopathy. CARDIOVASCULAR: Tachycardic, RR. S1, S2 no S4. Without murmurs RESPIRATORY: Breath sounds equal bilaterally. Positive expiratory wheeze right- sided. Fine crackles patient the bases. GASTROINTESTINAL: Abdomen soft, non-tender, nondistended. Hypoactive bowel sounds are appreciated MUSCULOSKELETAL: Trace lower extremity edema. A/P Problem List: (1) Hypertensive urgency ICD Code: I10 Status: Acute (2) COPD with acute exacerbation ICD Code: J44.1 Status: Acute (3) Acute respiratory failure ICD Code: J96.00 Status: Acute Assessment and Plan Neuro/Psych: Currently on propofol/fentanyl and Versed drips for sedation/analgesia while intubated Goal of RASS -2 Daily sedation vacation Acetaminophen for fever CV: Sinus tachycardia Hypertensive emergency Dyslipidemia Elevated troponin - likely strain Grade 1 diastolic dysfunction Holding home medication Cozaar 50 mg daily with acute kidney injury. Resume clonidine 0.2 g by mouth 3 times a day. On pravastatin 20 mg daily for dyslipidemia. Okay to resume Echocardiogram - 2013 - grade 1 diastolic dysfunction. Mild LVH. Ejection fraction 60%. Mild MR. GILLIAN 31 mmHg Recheck with elevated troponin. Likely secondary to strain secondary sinus tachycardia Serial troponins Resp: Acute respiratory failure COPD Possible foreign body ingestion/pill ACV 14/500/40 CT chest revealed scarring right upper lobe/bilateral lobes. ASCVD. 1.42.1 cm soft tissue mass mass possible aspiration possibly pill. Right bronchus intermedius with 9 mm mass possibly pill ingestion possibly mucus plugging. Bronchodilator therapy every 6 hours and as needed Solu-Medrol 40 mg IV every 8 hours/pulmonary Spontaneous breathing trials when clinically indicated Pulmonary consult for possible mass congestion GI: Started on Jevity 1.5 goal 55 cc an hour Protonix for GI prophylaxis Colace/as needed Senokot for bowel regimen : Stephen for accurate I's and O's in a critically ill patient Endo: Sliding-scale insulin with Accu-Cheks to maintain euglycemia Check TSH Renal: Acute kidney injury Avoid nephrotoxic drugs Currently in normal saline at 84 cc an hour Heme: Leukocytosis Follow CBC name. Monitor trends ID: Possible aspiration Pertinent cultures Blood cultures 2 - pending Sputum - gram-positive cocci in pairs FEN: Hypopotassemia Electrolyte protocol initiated. Replace potassium today. Recheck MSK: PT evaluate and treat Access - Utilize peripheral IV. Central line if indicated Prophylaxis - GI - Protonix - DVT - SCD/Lovenox Critical Care: The total additional critical care time was 35 minutes. Time to perform other separately billable procedures was not included in the critical care time. Edy Mackay MD Aug 04, 2016 09:58
[2016-08-04] MEDS ORDERED: NITROGLYCERIN 2% OINT 1 GM PACKET TOPICAL PRN (10:15)
[2016-08-04] MEDS: PANTOPRAZOLE SODIUM 40 MG VIAL IV PUSH SCH (11:13)
--- NOTE | 2016-08-04 12:24 | EKG ---
Date Performed: 08/03/2016 Time Performed: 20:46:52 PTAGE: 71 years EKG: SINUS TACHYCARDIA ABNORMAL ECG PREVIOUS TRACING : 07/19/2013 05.21 Since previous tracing, no significant change noted DOCTOR: Kevin Seals Interpretating Date/Time 08/04/2016 12:23:27
[2016-08-04] MEDS: INSULIN NovoLIN REGULAR SUPPLEMENTAL SCALE SQ SCH ×2 (12:25→18:23)
[2016-08-04] MEDS: methylPREDNISolone SOD SUCC 40 MG/1 ML VIAL IV PUSH SCH ×2 (13:22→22:02)
--- NOTE | 2016-08-04 14:06 | EKG ---
Date Performed: 08/04/2016 Time Performed: 11:53:33 PTAGE: 71 years EKG: SINUS TACHYCARDIA NONSPECIFIC ST & T-WAVE ABNORMALITY ABNORMAL RHYTHM ECG PREVIOUS TRACING : 08/03/2016 20.46 No significant change from previous tracing noted. DOCTOR: Best Roy Interpretating Date/Time 08/04/2016 14:04:35
[2016-08-04] MEDS ORDERED: ASPIRIN 81 MG CHEW TAB CHEW ONE (15:45)
[2016-08-04] MEDS ORDERED: DEXT 5%-NACL 0.45% 1000 ML INJ 1,000 ML IV SCH (16:00)
[2016-08-04] MEDS: METOPROLOL TARTRATE 5 MG/5 ML VIAL IV PUSH SCH ×2 (16:00→22:00)
[2016-08-04] MEDS: guaiFENesin SOLUTION 200 MG/10 ML CUP PO SCH ×2 (16:16→22:07)
[2016-08-04] MEDS: DOCUSATE SODIUM 100 MG CAP PO SCH (19:49)
[2016-08-04] MEDS: CHLORHEXIDINE 0.12% (ORAL KIT) 15 ML CUP MT SCH (19:49)
--- NOTE | 2016-08-04 19:56 | MB ---
cc: ELMA PERRY DATE OF CONSULTATION 08/04/2016 REASON FOR CONSULTATION A 71-year-old white female admitted with wheezing, shortness of breath. She might have aspirated a pill. She was eventually intubated for respiratory failure. She has a history of COPD. She has no previous cardiac history. She was found to have elevated troponin. She has not had any chest pain. PAST MEDICAL HISTORY Positive for: 1. Hypertension. 2. Chronic obstructive pulmonary disease. 3. History of dyslipidemia. 4. No history of diabetes, coronary artery disease PAST SURGICAL HISTORY 1. Ankle surgery. 2. Eye surgery. MEDICATIONS 2. DuoNeb. 3. Albuterol. 4. Pravastatin. 5. Cozaar. ALLERGIES PENICILLIN. SOCIAL HISTORY She does not smoke. She does not drink alcohol. FAMILY HISTORY Negative for heart disease. REVIEW OF SYSTEMS Otherwise negative. PHYSICAL EXAMINATION VITAL SIGNS: Blood pressure 112/70, pulse 103 and regular. HEENT: The patient is intubated and sedated. 2+ carotid upstroke. No bruits. LUNGS: With a few rhonchi. HEART: Regular with no murmur, gallop or rub. ABDOMEN: Soft. No bruits. EXTREMITIES: With trace edema. 1+ distal pulses. NEUROLOGICAL: Grossly nonfocal. EKG was reviewed and showed sinus tachycardia. No acute changes. LABORATORY DATA Hemoglobin 14.7. Potassium 3.5. Creatinine 1.5. Magnesium 1.4. Troponin 0.57 and 2.51. DIAGNOSES 1. Acute respiratory failure. 2. Acute chronic obstructive pulmonary disease exacerbation. 3. Hypertensive urgency. 4. Abnormal troponin. 5. Sinus tachycardia. 6. Dyslipidemia. 7. Possible foreign body aspiration. 8. Acute renal insufficiency. DISPOSITION Ms. Richardson will be monitored in the intensive care unit. We will obtain serial enzymes and EKGs. We will obtain an echocardiogram to evaluate her left ventricular function. She will later need a stress test to evaluate for ischemia. I will follow her for cardiology during her hospitalization. I recommend to continue her medications for blood pressure control. Pulmonary evaluation was also requested. Elma Perry MD OQ/KK /6:02 PM /7:36 PM FLEX
[2016-08-04] MEDS ORDERED: DOCUSATE SODIUM 100 MG/10 ML UDC PO SCH (21:00)
[2016-08-05] VITALS (17 sets, daily range): BP systolic 86–154; BP diastolic 49–76; PULSE 79–119; RESP 14–32; TEMP 98.1–99.4; O2SAT 95–100
[2016-08-05] MEDS: INSULIN NovoLIN REGULAR SUPPLEMENTAL SCALE SQ SCH ×4 (00:42→17:00)
[2016-08-05] MEDS: HEPARIN SODIUM - SQ 10,000 UNITS/ML VIAL SQ SCH ×3 (00:44→17:00)
[2016-08-05 02:00] LABS: AUTOMATED NEUTROPHIL # 14.8 TH/MM3 (1.8-7.7); BASOPHIL # 0.1 TH/MM3 (0-0.2); BASOPHIL % 0.6 % (0.0-2.0); HEMATOCRIT 41.1 % (35.0-46.0); LYMPH % 3.2 % (9.0-44.0); LYMPHOCYTE # 0.5 TH/MM3 (1.0-4.8); MEAN CELL VOLUME 91.1 FL (80.0-100.0); MEAN CORPUSCULAR HEMOGLOBIN 30.1 PG (27.0-34.0); MONO % 5.2 % (0.0-8.0); PLATELET COUNT 253 TH/MM3 (150-450); RED BLOOD COUNT 4.52 MIL/MM3 (4.00-5.30); RED CELL DISTRIBUTION WIDTH 14.1 % (11.6-17.2); WHITE BLOOD COUNT 16.3 TH/MM3 (4.0-11.0)
[2016-08-05 02:04] LABS: HEMO FLAGS AUTO DIFF
[2016-08-05 02:27] LABS: ALKALINE PHOSPHATASE 43 U/L (45-117); ALT (GPT) 32 U/L (10-53); ANION GAP 8 MEQ/L (5-15); AST (GOT) 54 U/L (15-37); BICARBONATE 24.9 MEQ/L (21.0-32.0); BLOOD UREA NITROGEN 28 MG/DL (7-18); CHLORIDE 108 MEQ/L (98-107); GLOMERULAR FILTRATION RATE 45 ML/MIN (>89); HDL CHOLESTEROL 40.8 MG/DL (40.0-60.0); POTASSIUM 4.7 MEQ/L (3.5-5.1); SODIUM (NA) 141 MEQ/L (136-145); TOTAL BILIRUBIN ADULT 0.4 MG/DL (0.2-1.0)
[2016-08-05] MEDS: PROPOFOL 1000 MG/100 ML INJ 100 ML IV SCH ×2 (02:35→13:18)
[2016-08-05 02:42] LABS: BANDS 20 % (0-6); NEUTROPHIL # MANUAL DIFF 15.8 TH/MM3 (1.8-7.7); PLATELET ESTIMATE SMEAR NORMAL (NORMAL); PLATELET MORPHOLOGY NORMAL (NORMAL); POLYS (SEG NEUTROPHILS) 77 % (16-70); SCAN/DIFF FINAL DIFF MANUAL; WBC DIFF SAMPLE 100
[2016-08-05] MEDS: RESP: ALBUTEROL 2.5 MG/IPRATROPIUM 0.5 MG NEB (SCH) INH ×6 (03:31→23:47)
[2016-08-05] MEDS: METOPROLOL TARTRATE 5 MG/5 ML VIAL IV PUSH SCH ×4 (04:00→21:13)
[2016-08-05] MEDS: CHLORHEXIDINE GLUCONATE 2 % 1 PACK (2 CLOTHS) TOP SCH (04:00)
--- NOTE | 2016-08-05 04:35 | RADRPT ---
EXAM DATE/TIME: 08/05/2016 02:43 [facility] COMPARISON: No previous studies available for comparison. INDICATIONS : Shortness of breath, possible pulmonary disease. MEDICAL HISTORY : Hypertension. Chronic obstructive pulmonary disease. Cardiovascular disease. SURGICAL HISTORY : None. ENCOUNTER: Subsequent ACUITY: 2 days PAIN SCORE: Non-responsive. LOCATION: Bilateral chest FINDINGS: Trace atelectasis again seen of the bases, not changed. No large effusion. No pneumothorax. Endotracheal tube tip is about 3 cm above the ally. There is a nasogastric tube coursing into the s tomach. CONCLUSION: No significant change. Freddy Cr MD on August 05, 2016 at 4:34 Board Certified Radiologist. This report was verified electronically.
[2016-08-05] MEDS: methylPREDNISolone SOD SUCC 40 MG/1 ML VIAL IV PUSH SCH ×3 (06:00→21:12)
[2016-08-05] MEDS: guaiFENesin SOLUTION 200 MG/10 ML CUP PO SCH ×3 (06:46→21:13)
--- NOTE | 2016-08-05 07:26 | MB ---
cc: LUDWIG MACKAY MD, JOHN DATE OF CONSULTATION: 08/04/2016 REASON FOR CONSULTATION Respiratory failure and foreign body aspiration. HISTORY OF PRESENT ILLNESS This is a 71-year-old lady with a history of dyspnea and prior history of COPD. She apparently choked on a pill prior to admission. The pill may have gone down the trachea and she was coughing persistently and had wheezing prior to admission. Upon arrival she was in respiratory failure and had to be intubated and placed on ventilator support. Most of the details are obtained from the chart as the patient is sedated and on ventilator support. The CAT scan that was done since admission demonstrated evidence of some blood in the bronchus intermedius and the main stem on the right side, and it could not be differentiated from mucus or a foreign body. The patient, however, has been stable since intubation and her oxygen saturations have improved and she is presently on 40% FIO2. The chest x-ray only shows mild atelectasis. PAST MEDICAL HISTORY 1. COPD. 2. Hypertension. 3. History of left ankle repair. 4. Surgery on her eye as an infant. MEDICATIONS 1. Catapres. 2. Clonidine 0.2 mg t.i.d. 3. Pravastatin 20 mg a day. 4. Cozaar 50 mg daily. 5. Symbicort 160/4.5, two puffs b.i.d. HABITS The smoking history is unavailable. The patient does not drink any alcohol. FAMILY HISTORY Noncontributory. ALLERGIES PENICILLIN. REVIEW OF SYSTEMS The patient is intubated on ventilator support. PHYSICAL EXAMINATION GENERAL: This is an elderly moderately overweight white female who is intubated and sedated. VITAL SIGNS: Blood pressure 135/80, pulse 75, respirations 16, temperature 98. HEENT: Head normocephalic. Pupils are reactive. Throat is clear. Nasal mucosa is edematous. NECK: Supple. No venous distension. No bruits or thyroid enlargement. CHEST: Equal movements with distant breath sounds and expiratory wheezes bilaterally. Prolonged expirations. Occasional basilar crackles. HEART: Irregular, S1 and S2. No murmur. No S3. ABDOMEN: Soft, nontender. Bowel sounds are active. No organomegaly. EXTREMITIES: Minimal edema. Peripheral pulses are well felt. NEUROLOGIC: Neurologically the patient is sedated and not responsive. SKIN: No lesions. IMPRESSION 1. COPD with emphysema and chronic bronchitis with acute exacerbation. 2. Acute respiratory failure. 3. Possible foreign body aspiration. 4. Hypertension. 5. Aspiration pneumonia. PLAN The patient has been maintained on ventilator support. We will wean the FIO2 down to 30%. Nebulized albuterol solution with Atrovent added q.6h. The patient will be continued on antibiotic coverage as ordered and Solu-Medrol 40 mg every 8 hours intravenously. If the chest x-ray shows persistent infiltrates in the right lung field, a bronchoscopy will be scheduled. Thank you Dr. Mackay for this consultation. MD BRIAN Perez/ADONAY /9:25 PM /7:16 AM
[2016-08-05] MEDS: CHLORHEXIDINE 0.12% (ORAL KIT) 15 ML CUP MT SCH ×2 (08:00→20:19)
[2016-08-05] MEDS: DOCUSATE SODIUM 100 MG CAP PO SCH ×2 (09:00→20:20)
[2016-08-05] MEDS: SODIUM CHLORIDE 0.9% FLUSH 5 ML FLUSH IV FLUSH SCH ×2 (09:00→20:20)
[2016-08-05] MEDS: BUDESONIDE-FORMOTEROL 160/4.5 MCG INHALER INH SCH ×2 (09:00→20:20)
[2016-08-05] MEDS: PANTOPRAZOLE SODIUM 40 MG VIAL IV PUSH SCH (09:46)
[2016-08-05] MEDS: cloNIDine HCL 0.2 MG TAB PO SCH ×4 (09:47→17:00)
[2016-08-05] MEDS: ASPIRIN 81 MG CHEW TAB CHEW SCH (09:47)
[2016-08-05] MEDS: ARTIFICIAL TEARS OPTH SOLN 15 ML BTL EACH EYE SCH ×3 (09:49→17:01)
--- NOTE | 2016-08-05 12:37 | HHI.PR ---
Subjective Remarks She is sedated. On the vent FIo2 40 %. Needs Bronchoscopy. Objective Vital Signs Date Time Temp Pulse Resp B/P Pulse Ox O2 Delivery O2 Flow Rate FiO2 08/05/16 12:00 106 08/05/16 12:00 40 08/05/16 12:00 98.2 106 15 127/61 100 08/05/16 11:12 97 40 08/05/16 10:00 108 08/05/16 08:00 40 08/05/16 08:00 98.1 113 14 148/66 97 08/05/16 08:00 108 08/05/16 07:36 97 40 08/05/16 06:00 91 08/05/16 04:00 98.4 103 14 93/55 95 08/05/16 04:00 95 40 08/05/16 04:00 103 08/05/16 04:00 40 08/05/16 02:00 106 08/05/16 01:06 97 40 08/05/16 00:00 98.3 111 14 127/62 98 08/05/16 00:00 111 08/05/16 00:00 40 08/04/16 22:00 110 08/04/16 21:10 99 40 08/04/16 20:00 98.2 111 17 125/58 98 08/04/16 20:00 113 08/04/16 20:00 40 08/04/16 19:58 98.2 103 20 99/55 98 08/04/16 18:00 111 08/04/16 16:00 98.6 109 14 83/44 96 08/04/16 16:00 110 08/04/16 16:00 60 08/04/16 15:39 96 40 08/04/16 14:00 110 I/O 08/04/16 08/04/16 08/04/16 08/05/16 08/05/16 08/05/16 07:00 15:00 23:00 07:00 15:00 23:00 Intake Total 517 ml 1058 ml 1244 ml 407 ml Output Total 1000 ml 350 ml 450 ml 270 ml Balance -483 ml 708 ml 794 ml 137 ml Intake Oral 0 ml 0 ml 0 ml IV Total 517 ml 1058 ml 1244 ml 407 ml Output Urine Total 1000 ml 350 ml 450 ml 270 ml # Bowel Movements 1 0 0 1 Result Diagram: 08/05/1614108/05/16141 Objective Remarks GENERAL: This is an elderly moderately overweight white female who is intubated and sedated. HEENT: Head normocephalic. Pupils are reactive. Throat is clear. Nasal mucosa is edematous. NECK: Supple. No venous distension. No bruits or thyroid enlargement. CHEST: Equal movements with distant breath sounds and expiratory wheezes bilaterally. Prolonged expirations. Occasional basilar crackles. HEART: Irregular, S1 and S2. No murmur. No S3. ABDOMEN: Soft, nontender. Bowel sounds are active. No organomegaly. EXTREMITIES: Minimal edema. Peripheral pulses are well felt. NEUROLOGIC: Neurologically the patient is sedated and not responsive. SKIN: No lesions. Assessment and Plan Assessment and Plan IMPRESSION 1. COPD with emphysema and chronic bronchitis with acute exacerbation. 2. Acute respiratory failure. 3. Possible foreign body aspiration. 4. Hypertension. 5. Aspiration pneumonia. Plan : 1. Continue weaning FIo2 and vent rates. 2. Bronchoscopy today. 3. Nebs q6h , Duoneb. 4. CXR in am. 5. Cont Antibiotics as ordered. 6. Propofol for sedation. Arina Contreras MD Aug 05, 2016 12:37
[2016-08-05] MEDS ORDERED: MIDAZOLAM 100 MG/ML INJ 100 ML IV SCH (13:45)
--- NOTE | 2016-08-05 13:56 | HHI.CCPN ---
Subjective Remarks/Hospital Course 71-year-old female presents complaining of wheezing and shortness of breath. Patient has history of COPD. She was taking her medication this evening and choke on the pill. The pill may went down the wrong way, down her trachea. She has had persistent coughing since then and felt wheezing. She denies any chest pain. She has had shortness of breat, was treated with aerosols and i.v. steroids, however without significant improvement and was intubated by ED attending. 08/04: Afebrile. Awake on the ventilator. Currently in sinus tachycardia. Tube feeds been initiated. No bowel movement. Subjective 08/05: Currently sedated on the ventilator. Status post bronchoscopy today with removal of mucus and other debris. Currently afebrile. Appears comfortable the ventilator. Tolerating tube feeding. No bowel movement Objective Vital Signs Date Time Temp Pulse Resp B/P Pulse Ox O2 Delivery O2 Flow Rate FiO2 08/05/16 12:00 106 08/05/16 12:00 40 08/05/16 12:00 98.2 15 127/61 100 08/04/16 02:10 Ventilator 08/04/16 00:12 15.00 Intake and Output 08/04/16 08/04/16 08/05/16 08:00 16:00 00:00 Intake Total 517 ml 1058 ml 1244 ml Output Total 1000 ml 350 ml 450 ml Balance -483 ml 708 ml 794 ml Result Diagram: 08/05/16 0142 08/05/16 0142 Other Results Microbiology Date/Time Procedure Status Source Growth 08/04/16 01:00 Gram Stain - Final Resulted Sputum Endotracheal 08/04/16 01:00 Sputum Culture - Preliminary Resulted Gram Negative Elia 08/03/16 20:23 Aerobic Blood Culture - Preliminary Resulted Blood Peripheral NO GROWTH IN 2 DAYS 08/03/16 20:23 Anaerobic Blood Culture - Preliminary Resulted Blood Peripheral NO GROWTH IN 2 DAYS Imaging Last Impressions Chest X-Ray 08/05/16 0600 Signed Impressions: Service Date/Time: Friday, August 05, 2016 02:43 - CONCLUSION: No significant change. Freddy Cr MD Chest CT 08/03/16 4930 Signed Impressions: Service Date/Time: Wednesday, August 03, 2016 23:11 - CONCLUSION: There appears to be a low density focus in the bronchus intermedius as described above not a typical appearance for a aspirated foreign body however mucous plugging or mass, secretions can have this appearance. Michael Judd MD Objective Remarks GENERAL: 71-year-old female, critically ill currently orotracheally intubated SKIN: Warm and dry. No rash HEAD: Normocephalic. EYES: No scleral icterus. No injection or drainage. NECK: Supple, trachea midline. No JVD or lymphadenopathy. CARDIOVASCULAR: RRR. S1, S2 no S4. Without murmurs RESPIRATORY: Breath sounds equal bilaterally. Positive expiratory wheeze right- sided. Fine crackles patient the bases. GASTROINTESTINAL: Abdomen soft, non-tender, nondistended. Hypoactive bowel sounds are appreciated MUSCULOSKELETAL: Trace lower extremity edema. A/P Problem List: (1) Hypertensive urgency ICD Code: I10 Status: Acute (2) COPD with acute exacerbation ICD Code: J44.1 Status: Acute (3) Acute respiratory failure ICD Code: J96.00 Status: Acute Assessment and Plan Neuro/Psych: Currently on fentanyl and Versed drips for sedation/analgesia while intubated Discontinue propofol drip secondary to triglycerides Goal of RASS -2 Daily sedation vacation Acetaminophen for fever CV: Sinus tachycardia - resolving Hypertensive emergency Dyslipidemia Elevated troponin - likely strain Grade 1 diastolic dysfunction Holding home medication Cozaar 50 mg daily with acute kidney injury. Resume clonidine 0.2 g by mouth 3 times a day. On pravastatin 20 mg daily for dyslipidemia. Okay to resume Echocardiogram - 2013 - grade 1 diastolic dysfunction. Mild LVH. Ejection fraction 60%. Mild MR. GILLIAN 31 mmHg Recheck with elevated troponin. Likely secondary to strain secondary sinus tachycardia Serial troponins Cardiology consult appreciated Resp: Acute respiratory failure COPD Possible foreign body ingestion/pill ACV / CT chest revealed scarring right upper lobe/bilateral lobes. ASCVD. 1.42.1 cm soft tissue mass mass possible aspiration possibly pill. Right bronchus intermedius with 9 mm mass possibly pill ingestion possibly mucus plugging. Bronchodilator therapy every 6 hours and as needed Solu-Medrol 40 mg IV every 8 hours/pulmonary Spontaneous breathing trials when clinically indicated Pulmonary consult/status post bronchoscopy today. Appreciated GI: Started on Jevity 1.5 goal 55 cc an hour Protonix for GI prophylaxis Colace/as needed Senokot for bowel regimen : Stephen for accurate I's and O's in a critically ill patient Endo: Sliding-scale insulin with Accu-Cheks to maintain euglycemia Check TSH Renal: Acute kidney injury Avoid nephrotoxic drugs Currently in normal saline at 84 cc an hour Heme: Leukocytosis Follow CBC name. Monitor trends ID: Possible aspiration Pertinent cultures Blood cultures 2 -no growth Sputum - gram-negative elia FEN: Replace electrolytes as clinically indicated MSK: PT evaluate and treat Access - Utilize peripheral IV. Central line if indicated Prophylaxis - GI - Protonix - DVT - SCD/Lovenox Critical Care: The total critical care time was 35 minutes. Time to perform other separately billable procedures was not included in the critical care time. Edy Mackay MD Aug 05, 2016 13:56 Edy Mackay MD Aug 05, 2016 13:56
--- NOTE | 2016-08-05 14:56 | EC ---
Study Study Date:08/05/2016 STUDY CONCLUSIONS SUMMARY - Left ventricle: The cavity size was normal. Wall thickness was normal. Systolic function was hyperdynamic. The estimated ejection fraction was in the range of 65% to 70%. Wall motion was normal; there were no regional wall motion abnormalities. Doppler parameters are consistent with abnormal left ventricular relaxation (grade 1 diastolic dysfunction). - Aortic valve: Valve area: 1.9cm^2(VTI). Valve area: 1.75cm^2 (Vmax). If LV function is below 40, please consider prescribing an ACEI or ARB or document rationale for non-use. PROCEDURE DATA STUDY STATUS: Elective. Procedure: Transthoracic echocardiography. Image quality was adequate. The study was technically limited due to poor acoustic window availability. Scanning was performed from the parasternal, apical, and subcostal acoustic windows. Study completion: The patient tolerated the procedure well. Transthoracic echocardiography. M-mode, complete 2D, complete spectral Doppler, and color Doppler. Height: Height: 67in. Weight: Weight: 174.6lb. Body mass index: BMI: 27.4kg/m^2. Body surface area: BSA: 1.91m^2. Patient status: Inpatient. CARDIAC ANATOMY LEFT VENTRICLE: The cavity size was normal. Wall thickness was normal. Systolic function was hyperdynamic. The estimated ejection fraction was in the range of 65% to 70%. Wall motion was normal; there were no regional wall motion abnormalities. Doppler parameters are consistent with abnormal left ventricular relaxation (grade 1 diastolic dysfunction). AORTIC VALVE: Trileaflet; normal thickness leaflets. Doppler: Transvalvular velocity was within the normal range. There was no stenosis. No regurgitation. Valve area: 1.9cm^2(VTI). Indexed valve area: 0.99cm^2/m^2 (VTI). Valve area: 1.75cm^2 (Vmax). Indexed valve area: 0.92cm^2/m^2 (Vmax). Mean gradient: 6mm Hg (S). Peak gradient: 12mm Hg (S). AORTA: Aortic root: The aortic root was normal in size. MITRAL VALVE: Structurally normal valve. Doppler: Transvalvular velocity was within the normal range. There was no evidence for stenosis. No regurgitation. Peak gradient: 7mm Hg (D). LEFT ATRIUM: The atrium was normal in size. RIGHT VENTRICLE: The cavity size was normal. Wall thickness was normal. PULMONIC VALVE: Doppler: Transvalvular velocity was within the normal range. There was no evidence for stenosis. No regurgitation. TRICUSPID VALVE: Structurally normal valve. Doppler: Transvalvular velocity was within the normal range. No regurgitation. PULMONARY ARTERY: The main pulmonary artery was normal-sized. Systolic pressure was within the normal range. RIGHT ATRIUM: The atrium was normal in size. PERICARDIUM: There was no pericardial effusion. SYSTEMIC VEINS: Inferior vena cava: The vessel was normal in size. Patient weight: 174.6lb _Ejection fraction:_ 65-75% _Fractional shortening:_ 32% up to 5Kg 5-11.5Kg 11.6-22.9Kg 23-45Kg 45-57Kg Aortic Root 7-13 <17 13-22 17-27 17-27 LA diam 6-13 <23 24-38 33-47 37-40 RVID 10-17 7-15 7-15 7-18 8-17 LVIDd 12-22 <32 24-38 33-47 37-40 LVPW 2-4 3-6 5-7 6-8 7-8 IVS 2-4 3-6 5-7 6-8 7-8 BASIC MEASUREMENTS ADULT NORMAL Left ventricle LV internal dimension, ED, chordal *52.6 mm 43-52 level, PLAX LV internal dimension, ES, chordal 34.6 mm 23-38 level, PLAX Fractional shortening, chordal level, 34 % >29 PLAX LV posterior wall thickness, ED 9.72 mm IVS/LVPW ratio, ED 0.98 <1.3 Ventricular septum Septal thickness, ED 9.49 mm Aortic valve Leaflet separation 16 mm 15-26 Aorta Root diameter, ED 27 mm Left atrium Anterior-posterior dimension 30 mm Anterior-posterior dimension index 1.57 cm/m^2 <2.2 BASIC MEASUREMENTS ADULT NORMAL Aortic valve Leaflet separation 16 mm 15-26 DOPPLER MEASUREMENTS ADULT NORMAL Aortic valve Peak velocity, S 176 cm/s Mean velocity, S 112 cm/s VTI, S 27.5 cm Mean gradient, S 6 mm Hg Peak gradient, S 12 mm Hg Valve area, VTI 1.9 cm^2 Valve area index, VTI 0.99 cm^2/m^2 Valve area, Vmax 1.75 cm^2 Valve area index, Vmax 0.92 cm^2/m^2 Mitral valve Peak E-wave velocity 131 cm/s Peak A-wave velocity 149 cm/s Deceleration time *109 ms 150-230 Peak gradient, D 7 mm Hg Peak E/A ratio 0.9 Pulmonic valve Peak velocity, S 49.9 cm/s LEGEND: Mean values are shown as u=mean value. Asterisk (*) moore values outside specified normal range. Prepared and signed by Danial Soto [id number]
[2016-08-05] MEDS: PRAVASTATIN SOD 20 MG TAB PO SCH (20:20)
[2016-08-05] MEDS: fentaNYL DRIP 250 ML IV SCH (22:54)
[2016-08-05] MEDS ORDERED: LEVOFLOXACIN 750 MG PREMIX INJ 150 ML IV SCH (23:00)
[2016-08-06] VITALS (17 sets, daily range): BP systolic 117–173; BP diastolic 57–78; PULSE 80–113; RESP 8–22; TEMP 97.5–98.8; O2SAT 93–97
[2016-08-06] MEDS: LEVOFLOXACIN 750 MG PREMIX INJ 150 ML IV SCH (00:05)
[2016-08-06] MEDS: HEPARIN SODIUM - SQ 10,000 UNITS/ML VIAL SQ SCH ×3 (01:53→17:19)
[2016-08-06] MEDS: RESP: ALBUTEROL 2.5 MG/IPRATROPIUM 0.5 MG NEB (SCH) INH ×6 (03:40→23:32)
[2016-08-06] MEDS: CHLORHEXIDINE GLUCONATE 2 % 1 PACK (2 CLOTHS) TOP SCH (04:00)
[2016-08-06 04:20] LABS: AUTOMATED NEUTROPHIL # 13.8 TH/MM3 (1.8-7.7); BASOPHIL % 0.1 % (0.0-2.0); HEMATOCRIT 38.3 % (35.0-46.0); HEMO FLAGS DIFF FINAL; LYMPH % 2.9 % (9.0-44.0); LYMPHOCYTE # 0.4 TH/MM3 (1.0-4.8); MEAN CELL VOLUME 90.5 FL (80.0-100.0); MEAN CORPUSCULAR HEMOGLOBIN 31.1 PG (27.0-34.0); MEAN CORPUSCULAR HGB CONC 34.3 % (32.0-36.0); MONO % 4.1 % (0.0-8.0); NEUT % 92.9 % (16.0-70.0); PLATELET COUNT 219 TH/MM3 (150-450); RED BLOOD COUNT 4.23 MIL/MM3 (4.00-5.30); RED CELL DISTRIBUTION WIDTH 14.4 % (11.6-17.2); WHITE BLOOD COUNT 14.9 TH/MM3 (4.0-11.0)
[2016-08-06 04:51] LABS: ANION GAP 7 MEQ/L (5-15); AST (GOT) 47 U/L (15-37); BLOOD UREA NITROGEN 38 MG/DL (7-18); CHLORIDE 107 MEQ/L (98-107); GLOMERULAR FILTRATION RATE 49 ML/MIN (>89); MAGNESIUM 2.5 MG/DL (1.5-2.5); POTASSIUM 4.5 MEQ/L (3.5-5.1); SODIUM (NA) 141 MEQ/L (136-145)
[2016-08-06 05:02] LABS: ALKALINE PHOSPHATASE 38 U/L (45-117); ALT (GPT) 28 U/L (10-53); CREATINE KINASE 321 U/L (26-192); TOTAL BILIRUBIN ADULT 0.3 MG/DL (0.2-1.0)
[2016-08-06 05:25] LABS: CKMB 14.4 NG/ML (0.5-3.6)
[2016-08-06] MEDS: guaiFENesin SOLUTION 200 MG/10 ML CUP PO SCH ×3 (05:29→23:15)
[2016-08-06] MEDS: METOPROLOL TARTRATE 5 MG/5 ML VIAL IV PUSH SCH ×4 (05:30→19:12)
[2016-08-06] MEDS: methylPREDNISolone SOD SUCC 40 MG/1 ML VIAL IV PUSH SCH ×3 (05:30→23:13)
[2016-08-06] MEDS: INSULIN NovoLIN REGULAR SUPPLEMENTAL SCALE SQ SCH ×5 (05:30→23:14)
[2016-08-06] MEDS: CHLORHEXIDINE 0.12% (ORAL KIT) 15 ML CUP MT SCH ×2 (08:00→19:12)
[2016-08-06] MEDS: BUDESONIDE-FORMOTEROL 160/4.5 MCG INHALER INH SCH ×2 (09:00→19:57)
[2016-08-06] MEDS: DOCUSATE SODIUM 100 MG CAP PO SCH ×2 (09:00→19:48)
[2016-08-06] MEDS: cloNIDine HCL 0.2 MG TAB PO SCH ×3 (09:18→17:18)
[2016-08-06] MEDS: ARTIFICIAL TEARS OPTH SOLN 15 ML BTL EACH EYE SCH ×3 (09:18→17:19)
[2016-08-06] MEDS: PANTOPRAZOLE SODIUM 40 MG VIAL IV PUSH SCH (09:18)
[2016-08-06] MEDS: SODIUM CHLORIDE 0.9% FLUSH 5 ML FLUSH IV FLUSH SCH ×2 (09:18→19:12)
[2016-08-06] MEDS: ASPIRIN 81 MG CHEW TAB CHEW SCH (09:18)
--- NOTE | 2016-08-06 12:08 | HHI.CCPN ---
Subjective Remarks/Hospital Course 71-year-old female presents complaining of wheezing and shortness of breath. Patient has history of COPD. She was taking her medication this evening and choke on the pill. The pill may went down the wrong way, down her trachea. She has had persistent coughing since then and felt wheezing. She denies any chest pain. She has had shortness of breath, was treated with aerosols and i.v. steroids, however without significant improvement and was intubated by ED attending. 08/04: Afebrile. Awake on the ventilator. Currently in sinus tachycardia. Tube feeds been initiated. No bowel movement. 08/05: Currently sedated on the ventilator. Status post bronchoscopy today with removal of mucus and other debris. Currently afebrile. Appears comfortable the ventilator. Tolerating tube feeding. No bowel movement Subjective 08/06: On spontaneous breathing trials since 7:30 this morning. Currently low- dose Versed for comfort. Status post bronchoscopy yesterday with clearing of mucus/debris. Denies chest pain. One bowel movement yesterday. Objective Vital Signs Date Time Temp Pulse Resp B/P Pulse Ox O2 Delivery O2 Flow Rate FiO2 08/06/16 12:00 97 08/06/16 11:05 96 35 08/06/16 08:00 97.5 8 158/72 08/04/16 02:10 Ventilator 08/04/16 00:12 15.00 Intake and Output 08/05/16 08/05/16 08/06/16 08:00 16:00 00:00 Intake Total 407 ml 854 ml Output Total 270 ml 1100 ml Balance 137 ml -246 ml Result Diagram: 08/06/16 0307 08/06/16 0307 Other Results Microbiology Date/Time Procedure Status Source Growth 08/05/16 12:24 Gram Stain - Final Resulted Bronchial Washings Bronchial 08/05/16 12:24 Bronchial Culture Resulted Bronchial Washings Bronchial Pending 08/05/16 12:24 Fungal Smear - Final Resulted Bronchial Washings Bronchial NO FUNGAL ELEMENTS SEEN. 08/05/16 12:24 Fungal Culture Resulted Bronchial Washings Bronchial Pending 08/05/16 12:24 Acid Fast Stain Received Bronchial Washings Bronchial Pending 08/05/16 12:24 Mycobacterial Culture Received Bronchial Washings Bronchial Pending 08/03/16 20:23 Aerobic Blood Culture - Preliminary Resulted Blood Peripheral NO GROWTH IN 3 DAYS 08/03/16 20:23 Anaerobic Blood Culture - Preliminary Resulted Blood Peripheral NO GROWTH IN 3 DAYS Imaging Last Impressions Chest X-Ray 08/05/16 0600 Signed Impressions: Service Date/Time: Friday, August 05, 2016 02:43 - CONCLUSION: No significant change. Freddy Cr MD Chest CT 08/03/16 2218 Signed Impressions: Service Date/Time: Wednesday, August 03, 2016 23:11 - CONCLUSION: There appears to be a low density focus in the bronchus intermedius as described above not a typical appearance for a aspirated foreign body however mucous plugging or mass, secretions can have this appearance. Michael Judd MD Objective Remarks GENERAL: 71-year-old female, critically ill currently orotracheally intubated SKIN: Warm and dry. No rash HEAD: Normocephalic. EYES: No scleral icterus. No injection or drainage. NECK: Supple, trachea midline. No JVD or lymphadenopathy. CARDIOVASCULAR: RRR. S1, S2 no S4. Without murmurs RESPIRATORY: Breath sounds equal bilaterally. Positive expiratory wheeze right- sided. Fine crackles patient the bases. GASTROINTESTINAL: Abdomen soft, non-tender, nondistended. Hypoactive bowel sounds are appreciated MUSCULOSKELETAL: Trace lower extremity edema. Urinary Catheter: Yes Assessment to: Continue Mitchell insert reason: Prolonged Immobilization Vascular Central Line Catheter: No Assessment to: Continue A/P Problem List: (1) Hypertensive urgency ICD Code: I10 Status: Acute (2) COPD with acute exacerbation ICD Code: J44.1 Status: Acute (3) Acute respiratory failure ICD Code: J96.00 Status: Acute Assessment and Plan Neuro/Psych: Currently on fentanyl and Versed drips for sedation/analgesia while intubated Discontinued propofol drip secondary to triglycerides Goal of RASS -2 Daily sedation vacation Acetaminophen for fever CV: Sinus tachycardia - resolving Hypertensive emergency Dyslipidemia Elevated troponin - likely strain Grade 1 diastolic dysfunction Holding home medication Cozaar 50 mg daily with acute kidney injury. Resume clonidine 0.2 g by mouth 3 times a day. Continue Lopressor 2.5 every 6 On pravastatin 20 mg daily for dyslipidemia. Okay to resume Echocardiogram - 2013 - grade 1 diastolic dysfunction. Mild LVH. Ejection fraction 60%. Mild MR. GILLIAN 31 mmHg Recheck with elevated troponin. Likely secondary to strain secondary sinus tachycardia Serial troponins. Continues to rise currently. Cardiology consult appreciated Resp: Acute respiratory failure COPD Possible foreign body ingestion/pill ACV 14/500/40 CT chest revealed scarring right upper lobe/bilateral lobes. ASCVD. 1.42.1 cm soft tissue mass mass possible aspiration possibly pill. Right bronchus intermedius with 9 mm mass possibly pill ingestion possibly mucus plugging. Bronchodilator therapy every 6 hours and as needed Solu-Medrol 40 mg IV every 8 hours/pulmonary Spontaneous breathing trials when clinically indicated Pulmonary consult/status post bronchoscopy 08/05. GI: Holding Jevity 1.5 goal 55 cc an hour possible extubation Protonix for GI prophylaxis Colace/as needed Senokot for bowel regimen : Stephen for accurate I's and O's in a critically ill patient Endo: Sliding-scale insulin with Accu-Cheks to maintain euglycemia TSH within normal limits Renal: Acute kidney injury Avoid nephrotoxic drugs IV fluids will be discontinued Heme: Leukocytosis Follow CBC name. Monitor trends ID: Pseudomonas pneumonia Pertinent cultures 08/03 - Blood cultures 2 -no growth 08/04 - Sputum -Pseudomonas 08/05 - bronchus - no growth Continue Levaquin. FEN: Replace electrolytes as clinically indicated MSK: PT evaluate and treat Access - Utilize peripheral IV. Central line if indicated Prophylaxis - GI - Protonix - DVT - SCD/Lovenox Critical Care: The total critical care time was 35 minutes. Time to perform other separately billable procedures was not included in the critical care time. Edy Mackay MD Aug 06, 2016 12:08
--- NOTE | 2016-08-06 13:49 | RADRPT ---
EXAM DATE/TIME: 08/06/2016 13:11 [facility] COMPARISON: CHEST SINGLE AP, August 05, 2016, 2:43. INDICATIONS : Pneumonia. MEDICAL HISTORY : Cardiovascular disease. Chronic obstructive pulmonary disease. Hypertension SURGICAL HISTORY : None. ENCOUNTER: Subsequent ACUITY: 4 - 6 days PAIN SCORE: Non-responsive. LOCATION: Bilateral chest FINDINGS: A single view of the chest demonstrates a new mild infiltrate in the right lung base medially. Otherw ise, the rest of the lungs are clear and well-aerated. There is no pneumothorax. The support devices remain in place. The bony shortness are stable.. CONCLUSION: New Mild infiltrate medial right lower lung. Taurus Levine MD on August 06, 2016 at 13:44 Board Certified Radiologist. This report was verified electronically.
[2016-08-06] MEDS: hydrALAZINE HCL 20 MG/ML VIAL IV PUSH PRN (18:50)
[2016-08-06] MEDS: PRAVASTATIN SOD 20 MG TAB PO SCH (19:12)
--- NOTE | 2016-08-06 19:31 | HHI.PR ---
Subjective Remarks She is sedated. On the vent FIo2 40 %. Doing better. and ABG improved Objective Vital Signs Date Time Temp Pulse Resp B/P Pulse Ox O2 Delivery O2 Flow Rate FiO2 08/06/16 18:00 92 08/06/16 17:25 96 Nasal Cannula 3.00 08/06/16 17:25 95 Nasal Cannula 3 08/06/16 16:00 98 08/06/16 16:00 98.4 96 14 173/78 96 08/06/16 14:00 88 08/06/16 12:00 98.4 100 15 123/60 96 08/06/16 12:00 35 08/06/16 12:00 97 08/06/16 11:05 96 35 08/06/16 10:00 113 08/06/16 08:00 97.5 100 8 158/72 97 08/06/16 08:00 100 08/06/16 08:00 35 08/06/16 07:46 35 08/06/16 06:00 80 08/06/16 04:10 95 40 08/06/16 04:00 98.8 87 14 117/57 96 08/06/16 04:00 40 08/06/16 04:00 87 08/06/16 02:00 82 08/06/16 00:33 96 40 08/06/16 00:00 85 08/06/16 00:00 98.6 85 14 119/58 93 08/06/16 00:00 40 08/05/16 22:00 95 40 08/05/16 22:00 80 08/05/16 20:00 40 08/05/16 20:00 79 08/05/16 20:00 98.3 80 14 86/49 95 I/O 08/05/16 08/05/16 08/05/16 08/06/16 08/06/16 08/06/16 07:00 15:00 23:00 07:00 15:00 23:00 Intake Total 407 ml 854 ml 519 ml 206 ml Output Total 270 ml 1100 ml 350 ml 450 ml Balance 137 ml -246 ml 169 ml -244 ml Intake Oral 0 ml IV Total 407 ml 697 ml 359 ml 206 ml Tube Feeding 57 ml Other 100 ml 160 ml Output Urine Total 270 ml 1100 ml 350 ml 450 ml # Bowel Movements 1 0 Result Diagram: [id number]/30608/[id number] Objective Remarks GENERAL: This is an elderly moderately overweight white female who is intubated and sedated. HEENT: Head normocephalic. Throat is clear. Nasal mucosa is edematous. NECK: Supple. No venous distension. No bruits or thyroid enlargement. CHEST: Equal movements with distant breath sounds and expiratory wheezes bilaterally. Prolonged expirations. HEART: Irregular, S1 and S2. No murmur. No S3. ABDOMEN: Soft, nontender. Bowel sounds are active. No organomegaly. EXTREMITIES: Minimal edema. Peripheral pulses are well felt. NEUROLOGIC: Neurologically the patient is sedated . SKIN: No lesions. Assessment and Plan Assessment and Plan IMPRESSION 1. COPD with emphysema and chronic bronchitis with acute exacerbation. 2. Acute respiratory failure. 3. Possible foreign body aspiration. 4. Hypertension. 5. Aspiration pneumonia. Plan : 1. Continue weaning vent and Extubate today 2. CXR in am 3. Nebs q6h , Duoneb. 4. Stop sedation 5. Cont Antibiotics as ordered. 6. Cont Solumedrol 40 mg IV q8h Arina Contreras MD Aug 06, 2016 19:31
[2016-08-06] MEDS: METOCLOPRAMIDE HCL 10 MG/2 ML VIAL IV PRN (19:57)
[2016-08-07] VITALS (11 sets, daily range): BP systolic 134–193; BP diastolic 71–88; PULSE 85–117; RESP 19–30; TEMP 97.3–98.7; O2SAT 92–97
[2016-08-07] MEDS: HEPARIN SODIUM - SQ 10,000 UNITS/ML VIAL SQ SCH ×3 (02:36→16:46)
[2016-08-07] MEDS: METOPROLOL TARTRATE 5 MG/5 ML VIAL IV PUSH SCH ×2 (02:37→08:58)
[2016-08-07] MEDS: METOCLOPRAMIDE HCL 10 MG/2 ML VIAL IV PRN (02:37)
[2016-08-07] MEDS: CHLORHEXIDINE GLUCONATE 2 % 1 PACK (2 CLOTHS) TOP SCH (02:37)
[2016-08-07] MEDS: RESP: ALBUTEROL 2.5 MG/IPRATROPIUM 0.5 MG NEB (SCH) INH ×5 (03:51→19:37)
[2016-08-07 03:57] LABS: HEMATOCRIT 44.6 % (35.0-46.0); MEAN CELL VOLUME 90.6 FL (80.0-100.0); MEAN CORPUSCULAR HEMOGLOBIN 29.7 PG (27.0-34.0); MEAN CORPUSCULAR HGB CONC 32.8 % (32.0-36.0); PLATELET COUNT 258 TH/MM3 (150-450); RED BLOOD COUNT 4.92 MIL/MM3 (4.00-5.30); RED CELL DISTRIBUTION WIDTH 14.2 % (11.6-17.2); REVIEW FLAG FINAL; WHITE BLOOD COUNT 17.9 TH/MM3 (4.0-11.0)
[2016-08-07] MEDS: LABETALOL HCL 100 MG/20 ML VIAL IV PUSH PRN ×2 (04:01→05:24)
[2016-08-07 04:02] LABS: BICARBONATE 28.2 MEQ/L (21.0-32.0); POTASSIUM 4.5 MEQ/L (3.5-5.1)
[2016-08-07] MEDS: INSULIN NovoLIN REGULAR SUPPLEMENTAL SCALE SQ SCH ×4 (06:00→20:13)
[2016-08-07] MEDS: methylPREDNISolone SOD SUCC 40 MG/1 ML VIAL IV PUSH SCH ×2 (06:20→13:19)
[2016-08-07] MEDS: guaiFENesin SOLUTION 200 MG/10 ML CUP PO SCH ×3 (06:20→20:02)
[2016-08-07] MEDS: hydrALAZINE HCL 20 MG/ML VIAL IV PUSH PRN (06:21)
[2016-08-07] MEDS: ONDANSETRON HCL 4 MG/2 ML VIAL IV PRN (06:43)
[2016-08-07] MEDS: CHLORHEXIDINE 0.12% (ORAL KIT) 15 ML CUP MT SCH ×2 (08:00→19:54)
[2016-08-07] MEDS: PANTOPRAZOLE SODIUM 40 MG VIAL IV PUSH SCH (08:58)
[2016-08-07] MEDS: cloNIDine HCL 0.2 MG TAB PO SCH ×3 (08:59→16:46)
[2016-08-07] MEDS: DOCUSATE SODIUM 100 MG CAP PO SCH ×2 (08:59→19:57)
[2016-08-07] MEDS: ASPIRIN 81 MG CHEW TAB CHEW SCH (08:59)
[2016-08-07] MEDS: ARTIFICIAL TEARS OPTH SOLN 15 ML BTL EACH EYE SCH ×3 (08:59→16:47)
[2016-08-07] MEDS: SODIUM CHLORIDE 0.9% FLUSH 5 ML FLUSH IV FLUSH SCH ×2 (09:00→20:14)
--- NOTE | 2016-08-07 09:33 | HHI.CCPN ---
Subjective Remarks/Hospital Course 71-year-old female presents complaining of wheezing and shortness of breath. Patient has history of COPD. She was taking her medication this evening and choke on the pill. The pill may went down the wrong way, down her trachea. She has had persistent coughing since then and felt wheezing. She denies any chest pain. She has had shortness of breath, was treated with aerosols and i.v. steroids, however without significant improvement and was intubated by ED attending. 08/04: Afebrile. Awake on the ventilator. Currently in sinus tachycardia. Tube feeds been initiated. No bowel movement. 08/05: Currently sedated on the ventilator. Status post bronchoscopy today with removal of mucus and other debris. Currently afebrile. Appears comfortable the ventilator. Tolerating tube feeding. No bowel movement 08/06: On spontaneous breathing trials since 7:30 this morning. Currently low- dose Versed for comfort. Status post bronchoscopy yesterday with clearing of mucus/debris. Denies chest pain. One bowel movement yesterday. Subjective 08/07: Extremities yesterday without complication. Currently 4 L nasal cannula. Patient is awake and following commands. Concerns for her cats. Objective Vital Signs Date Time Temp Pulse Resp B/P Pulse Ox O2 Delivery O2 Flow Rate FiO2 08/07/16 07:23 92 Nasal Cannula 4.00 08/07/16 06:00 87 08/07/16 04:00 98.7 21 193/88 08/06/16 12:00 35 Intake and Output 08/06/16 08/06/16 08/07/16 08:00 16:00 00:00 Intake Total 519 ml 206 ml 199 ml Output Total 350 ml 450 ml 850 ml Balance 169 ml -244 ml -651 ml Result Diagram: 08/07/16 0305 08/07/16 0305 Other Results Microbiology Date/Time Procedure Status Source Growth 08/05/16 12:24 Gram Stain - Final Resulted Bronchial Washings Bronchial 08/05/16 12:24 Bronchial Culture - Preliminary Resulted Bronchial Washings Bronchial IMMATURE GROWTH - REINCUBATE 08/05/16 12:24 Fungal Smear - Final Resulted Bronchial Washings Bronchial NO FUNGAL ELEMENTS SEEN. 08/05/16 12:24 Fungal Culture Resulted Bronchial Washings Bronchial Pending 08/05/16 12:24 Acid Fast Stain Received Bronchial Washings Bronchial Pending 08/05/16 12:24 Mycobacterial Culture Received Bronchial Washings Bronchial Pending 08/03/16 20:23 Aerobic Blood Culture - Preliminary Resulted Blood Peripheral NO GROWTH IN 3 DAYS 08/03/16 20:23 Anaerobic Blood Culture - Preliminary Resulted Blood Peripheral NO GROWTH IN 3 DAYS Imaging Last Impressions Chest X-Ray 08/06/16 0000 Signed Impressions: Service Date/Time: Saturday, August 06, 2016 13:11 - CONCLUSION: New Mild infiltrate medial right lower lung. Taurus Levine MD Chest CT 08/03/16 2218 Signed Impressions: Service Date/Time: Wednesday, August 03, 2016 23:11 - CONCLUSION: There appears to be a low density focus in the bronchus intermedius as described above not a typical appearance for a aspirated foreign body however mucous plugging or mass, secretions can have this appearance. Michael Judd MD Objective Remarks GENERAL: 71-year-old female, was blind and extubated on nasal cannula SKIN: Warm and dry. No rash HEAD: Normocephalic. EYES: No scleral icterus. No injection or drainage. NECK: Supple, trachea midline. No JVD or lymphadenopathy. CARDIOVASCULAR: RRR. S1, S2 no S4. Without murmurs RESPIRATORY: Breath sounds equal bilaterally. Positive expiratory wheeze right- sided. Fine crackles appreciated bilateral bases. GASTROINTESTINAL: Abdomen soft, non-tender, nondistended. Hypoactive bowel sounds are appreciated MUSCULOSKELETAL: Trace lower extremity edema. A/P Problem List: (1) Hypertensive urgency ICD Code: I10 Status: Acute (2) COPD with acute exacerbation ICD Code: J44.1 Status: Acute (3) Acute respiratory failure ICD Code: J96.00 Status: Acute Assessment and Plan Neuro/Psych: Cortical blindness Daily sedation vacation Acetaminophen for fever [place]/morphine for pain management CV: Sinus tachycardia - resolving Hypertensive emergency Dyslipidemia Elevated troponin - likely strain Grade 1 diastolic dysfunction Resume in a.m. 2/2 home medication Cozaar 50 mg daily with acute kidney injury. Resume clonidine 0.2 g by mouth 3 times a day. Switch Lopressor 2.5 every 6 to 25 mg by mouth twice a day On pravastatin 20 mg daily for dyslipidemia. Continue Echocardiogram - 2013 - grade 1 diastolic dysfunction. Mild LVH. Ejection fraction 60%. Mild MR. GILLIAN 31 mmHg Recheck with elevated troponin. Likely secondary to strain secondary sinus tachycardia Serial troponins. Peaked at 4.3. Cardiology consult appreciated Resp: Acute respiratory failure - resolving COPD Possible foreign body ingestion/pill Nasal cannula to maintain saturations greater than equal to 92% Incentive spirometry while awake Bronchodilator therapy every 6 hours and as needed Solu-Medrol 40 mg IV every 8 hours/pulmonary CT chest revealed scarring right upper lobe/bilateral lobes. ASCVD. 1.42.1 cm soft tissue mass mass possible aspiration possibly pill. Right bronchus intermedius with 9 mm mass possibly pill ingestion possibly mucus plugging. Pulmonary consult/status post bronchoscopy 08/05. GI: Advanced diet as tolerated once patch speech evaluation Protonix for GI prophylaxis Colace/as needed Senokot for bowel regimen : Stephen for accurate I's and O's in a critically ill patient Endo: Sliding-scale insulin with Accu-Cheks to maintain euglycemia TSH within normal limits Renal: Acute kidney injury Avoid nephrotoxic drugs IV fluids will be discontinued Heme: Leukocytosis Follow CBC name. Monitor trends ID: Pseudomonas pneumonia Pertinent cultures 08/03 - Blood cultures 2 -no growth 08/04 - Sputum -Pseudomonas 08/05 - bronchus - no growth Continue Levaquin. FEN: Replace electrolytes as clinically indicated MSK: PT evaluate and treat Access - Utilize peripheral IV. Central line if indicated Prophylaxis - GI - Protonix - DVT - SCD/Lovenox Critical Care: The total care time was 35 minutes. Time to perform other separately billable procedures was not included in the critical care time. Patient is stable from a critical care medicine standpoint. We'll assign care to hospitalist in a.m. /. Transfer to floor. Edy Mackay MD Aug 07, 2016 09:33
[2016-08-07] MEDS ORDERED: LOSARTAN 50 MG TAB PO ONE (10:15)
[2016-08-07] MEDS: BUDESONIDE-FORMOTEROL 160/4.5 MCG INHALER INH SCH ×2 (11:44→19:58)
--- NOTE | 2016-08-07 18:31 | HHI.PR ---
Subjective Remarks Off the vent O2 at 3L. Doing better. Chest X ray is better. On IV levaquin Objective Vital Signs Date Time Temp Pulse Resp B/P Pulse Ox O2 Delivery O2 Flow Rate FiO2 08/07/16 17:04 97.5 113 20 175/82 95 08/07/16 16:29 93 Nasal Cannula 4.00 08/07/16 13:25 97.3 117 20 149/72 95 08/07/16 10:00 97 08/07/16 08:00 98.2 91 30 162/71 96 08/07/16 08:00 91 08/07/16 07:23 92 Nasal Cannula 4.00 08/07/16 06:00 87 08/07/16 04:00 85 08/07/16 04:00 98.7 85 21 193/88 96 08/07/16 02:00 95 08/07/16 00:00 99 08/07/16 00:00 98.6 99 19 148/71 94 08/06/16 22:00 87 08/06/16 20:00 109 08/06/16 20:00 98.0 109 22 169/78 93 08/06/16 19:34 96 Nasal Cannula 4.00 I/O 08/06/16 08/06/16 08/06/16 08/07/16 08/07/16 08/07/16 07:00 15:00 23:00 07:00 15:00 23:00 Intake Total 519 ml 206 ml 199 ml 201 ml Output Total 350 ml 450 ml 850 ml 750 ml 650 ml Balance 169 ml -244 ml -651 ml -549 ml -650 ml Intake Oral 120 ml 120 ml IV Total 359 ml 206 ml 79 ml 81 ml Other 160 ml Output Urine Total 350 ml 450 ml 850 ml 750 ml 650 ml # Bowel Movements 0 0 0 Result Diagram: 08/07/16 0305 08/07/16 0305 Objective Remarks GENERAL: This is an elderly moderately overweight white female alert HEENT: Head normocephalic. Throat is clear. Nasal mucosa is edematous. NECK: Supple. No venous distension. No bruits or thyroid enlargement. CHEST: Equal movements with distant breath sounds and expiratory wheezes bilaterally. Prolonged expirations. HEART: Irregular, S1 and S2. No murmur. No S3. ABDOMEN: Soft, nontender. Bowel sounds are active. No organomegaly. EXTREMITIES: Minimal edema. Peripheral pulses are well felt. NEUROLOGIC: Neurologically alert and no focal deficits . SKIN: No lesions. Assessment and Plan Assessment and Plan IMPRESSION 1. COPD with emphysema and chronic bronchitis with acute exacerbation. 2. Acute respiratory failure.Resolved 3. Possible foreign body aspiration. 4. Hypertension. 5. Aspiration pneumonia. Plan : 1. O2 at 4 L and wean 2. CBC,BMP in am 3. Nebs q6h , Duoneb. 4. Taper off IV solumedrol . Add Prednisone 20mg bid 5. Cont Antibiotics as ordered. 6. PT evaluation Arina Contreras MD Aug 07, 2016 18:31
[2016-08-07] MEDS: PRAVASTATIN SOD 20 MG TAB PO SCH (19:57)
[2016-08-07] MEDS: predniSONE 20 MG TAB PO SCH (19:57)
[2016-08-07] MEDS: METOPROLOL TARTRATE 25 MG TAB PO SCH (19:57)
[2016-08-08] VITALS (11 sets, daily range): BP systolic 165–223; BP diastolic 79–111; PULSE 64–107; RESP 18–20; TEMP 97.1–98.9; O2SAT 92–99
[2016-08-08] MEDS: RESP: ALBUTEROL 2.5 MG/IPRATROPIUM 0.5 MG NEB (SCH) INH ×5 (00:09→21:45)
[2016-08-08] MEDS: LEVOFLOXACIN 750 MG PREMIX INJ 150 ML IV SCH (00:32)
[2016-08-08] MEDS: HEPARIN SODIUM - SQ 10,000 UNITS/ML VIAL SQ SCH ×3 (02:41→18:00)
[2016-08-08] MEDS: CHLORHEXIDINE GLUCONATE 2 % 1 PACK (2 CLOTHS) TOP SCH (04:00)
[2016-08-08] MEDS: guaiFENesin SOLUTION 200 MG/10 ML CUP PO SCH ×3 (04:48→22:47)
--- NOTE | 2016-08-08 06:20 | RADRPT ---
EXAM DATE/TIME: 08/08/2016 05:43 [facility] COMPARISON: CHEST SINGLE AP, August 06, 2016, 13:11. INDICATIONS : Shortness of breath. MEDICAL HISTORY : Cardiovascular disease. Chronic obstructive pulmonary disease. SURGICAL HISTORY : None. ENCOUNTER: Subsequent ACUITY: 1 week PAIN SCORE: 2/10 LOCATION: Bilateral chest FINDINGS: Trace atelectasis in both bases, slightly improved. No large effusion seen. No pneumothorax. Heart size stable, within normal limits. Thoracic aorta is tortuous and atherosclerotic. Patient extubated in the interim. Nasogastric tube also out. CONCLUSION: 1. Decreasing bibasilar atelectasis, now trace. 2. Endotracheal tube and nasogastric tube out. Freddy Cr MD on August 08, 2016 at 6:18 Board Certified Radiologist. This report was verified electronically.
[2016-08-08] MEDS: INSULIN NovoLIN REGULAR SUPPLEMENTAL SCALE SQ SCH ×4 (07:00→21:00)
[2016-08-08] MEDS: cloNIDine HCL 0.2 MG TAB PO SCH ×3 (07:04→18:20)
[2016-08-08 07:29] LABS: HEMATOCRIT 45.4 % (35.0-46.0); MEAN CELL VOLUME 90.2 FL (80.0-100.0); MEAN CORPUSCULAR HEMOGLOBIN 30.5 PG (27.0-34.0); MEAN CORPUSCULAR HGB CONC 33.8 % (32.0-36.0); PLATELET COUNT 211 TH/MM3 (150-450); RED BLOOD COUNT 5.03 MIL/MM3 (4.00-5.30); REVIEW FLAG FINAL; WHITE BLOOD COUNT 12.9 TH/MM3 (4.0-11.0)
[2016-08-08 07:31] LABS: BICARBONATE 27.8 MEQ/L (21.0-32.0)
[2016-08-08] MEDS: CHLORHEXIDINE 0.12% (ORAL KIT) 15 ML CUP MT SCH ×2 (08:00→20:00)
[2016-08-08] MEDS: DOCUSATE SODIUM 100 MG CAP PO SCH ×2 (08:58→22:48)
[2016-08-08] MEDS: PANTOPRAZOLE SOD 40 MG DELAYED RELEASE TAB PO SCH (08:58)
[2016-08-08] MEDS: predniSONE 20 MG TAB PO SCH (08:59)
[2016-08-08] MEDS: ASPIRIN 81 MG CHEW TAB CHEW SCH (08:59)
[2016-08-08] MEDS ORDERED: LOSARTAN 50 MG TAB PO SCH (09:00)
[2016-08-08] MEDS: METOPROLOL TARTRATE 25 MG TAB PO SCH (09:02)
[2016-08-08] MEDS: BUDESONIDE-FORMOTEROL 160/4.5 MCG INHALER INH SCH ×2 (09:07→21:00)
[2016-08-08] MEDS: ARTIFICIAL TEARS OPTH SOLN 15 ML BTL EACH EYE SCH ×3 (09:07→18:00)
[2016-08-08] MEDS: SODIUM CHLORIDE 0.9% FLUSH 5 ML FLUSH IV FLUSH SCH ×2 (09:11→22:48)
[2016-08-08] MEDS ORDERED: REGADENOSON INJ 0.4 MG/5 ML SYR ONE (11:16)
[2016-08-08] MEDS: ONDANSETRON HCL 4 MG/2 ML VIAL IV PRN (12:45)
[2016-08-08] MEDS: METOCLOPRAMIDE HCL 10 MG/2 ML VIAL IV PRN (13:00)
--- NOTE | 2016-08-08 13:02 | HHI.PR ---
Subjective Remarks Stable on O2 at 3L. Doing better. On IV levaquin. Wants to leave. Cardiac W/u in progress Objective Vital Signs Date Time Temp Pulse Resp B/P Pulse Ox O2 Delivery O2 Flow Rate FiO2 08/08/16 08:14 97.5 90 20 176/93 95 08/08/16 08:00 64 08/08/16 07:00 223/100 08/08/16 04:00 98.0 99 20 213/111 99 08/08/16 02:44 89 08/08/16 00:10 95 Nasal Cannula 4.00 08/08/16 00:00 97.3 107 18 194/98 95 08/07/16 20:00 98.7 89 20 134/76 97 08/07/16 17:04 97.5 113 20 175/82 95 08/07/16 16:29 93 Nasal Cannula 4.00 08/07/16 13:25 97.3 117 20 149/72 95 I/O 08/07/16 08/07/16 08/07/16 08/08/16 08/08/16 08/08/16 07:00 15:00 23:00 07:00 15:00 23:00 Intake Total 201 ml Output Total 750 ml 650 ml 650 ml 900 ml Balance -549 ml -650 ml -650 ml -900 ml Intake Oral 120 ml IV Total 81 ml Output Urine Total 750 ml 650 ml 650 ml 900 ml # Bowel Movements 0 Result Diagram: 08/08/16 0639 08/08/16 0639 Objective Remarks GENERAL: This is an elderly moderately overweight white female alert HEENT: Head normocephalic. Throat is clear. Nasal mucosa is clear NECK: Supple. No venous distension. No bruits or thyroid enlargement. CHEST: Equal movements with distant breath sounds and expiratory wheezes bilaterally. Prolonged expirations.Occ Crackles at bases HEART: Irregular, S1 and S2. No murmur. No S3. ABDOMEN: Soft, nontender. Bowel sounds are active. No organomegaly. EXTREMITIES: Minimal edema. Peripheral pulses are well felt. NEUROLOGIC: Neurologically alert and no focal deficits . SKIN: No lesions. Assessment and Plan Assessment and Plan IMPRESSION 1. COPD with emphysema and chronic bronchitis with acute exacerbation. 2. Acute respiratory failure.Resolved 3. Possible foreign body aspiration. 4. Hypertension. 5. Aspiration pneumonia. Plan : 1. O2 at 3 L and wean 2. CBC,BMP in am 3. Nebs q6h , Duoneb. 4. Cont Prednisone 20mg bid and taper over 3 weeks 5. Cont Antibiotics as ordered. 6. PT evaluation 7. Arrange Home O2 at 3 L Arina Contreras MD Aug 08, 2016 13:02
[2016-08-08] MEDS ORDERED: PILL SPLITTER OTHER PRN (13:15)
--- NOTE | 2016-08-08 13:24 | RADRPT ---
EXAM DATE/TIME: 08/08/2016 10:59 [facility] COMPARISON: MYOCARDIAL PERF PHARM SPECT, GATED W/EF, July 19, 2013, 11:18. INDICATIONS : Tachycarida. Abnormal EKG. DOSE: 26.1 mCi Tc99m Myoview at stress. 8.1 mCi Tc99m Myoview at rest. 0.4 mg Lexiscan STRESS SYMPTOMS: Dyspnea. EJECTION FRACTION: 54% MEDICAL HISTORY : Chronic obstructive pulmonary disease. SURGICAL HISTORY : Left foot surgery. ENCOUNTER: Initial ACUITY: 1 day PAIN SCALE: 4/10 LOCATION: Bilateral chest TECHNIQUE: The patient underwent pharmacologic stress with infusion of prescribed dose. Continuous ECG tracing was monitored during stress. Gated SPECT imaging was performed after stress and conventional SPECT i maging was performed at rest. The examination was performed on a SPECT/CT scanner, both attenuation and non-corrected datasets were reviewed. FINDINGS: DISTRIBUTION: The maximum perfused segment at stress is in the inferoseptal wall. PERFUSION STUDY: There is a moderate size mild severity fixed defect involving the apical portion of the anterior wall and apex. No reversible ischemic segments are identified. GATED STUDY: There is intact wall motion and thickening without hypokinetic or dyskinetic segments. CONCLUSION: 1. Moderate size mild severity fixed anterior anterior apical defect No reversible ischemic segments are identified. RISK CATEGORY: Intermediate (1-3% Annual Mortality Rate) Kevin Zendejas MD on August 08, 2016 at 13:11 Board Certified Radiologist. This report was verified electronically.
[2016-08-08] MEDS: cloNIDine HCL 0.1 MG TAB PO PRN (14:30)
[2016-08-08] MEDS ORDERED: ENALAPRILAT 1.25 MG/ML VIAL IV PUSH PRN (14:30)
[2016-08-08] MEDS ORDERED: amLODIPine BESYLATE 5 MG TAB PO ONE (16:30)
[2016-08-08] MEDS: METOPROLOL TARTRATE 50 MG TAB PO SCH (22:47)
[2016-08-08] MEDS: LOSARTAN 50 MG TAB PO SCH (22:47)
--- NOTE | 2016-08-08 22:47 | MP ---
cc: ANISH CONTRERAS DATE OF SURGERY 08/05/2016 PROCEDURE Fiberoptic bronchoscopy with therapeutic lavage and foreign body aspiration. PREOPERATIVE DIAGNOSIS POSTOPERATIVE DIAGNOSIS Same with mucous plugging and endobronchitis and foreign body including a pill. SEDATION IV propofol. SURGEON Jose Daniel Contreras MD PROCEDURE AND FINDINGS The patient was already intubated and on ventilator support and was kept sedated with propofol. The Olympus IT30 bronchoscope was used to visualize the bronchi. The scope was advanced via the endotracheal tube into the trachea. The trachea and ally appeared normal. The scope was then advanced into the right mainstem and right upper lobe segmental bronchi. This bronchi demonstrated moderate endobronchitis with mucoid secretions and mucosal ridging. The secretions were suctioned out and saline washings were done and the scope was then advanced into the right bronchus intermedius, into the right middle lobe bronchus. At the region of the bronchus intermedius, there were thick mucoid secretions with mucous plugs and there was no definite pill or medication seen in the bronchial lumen but there was some debris is in the bronchus intermedius and the right middle lobe bronchi including mucous plugging. These were suctioned out. Saline washings and lavage were carried out until clear. The right lower lobe bronchus also had some mucous plugging and debris which was all suctioned out. Saline washings and lavage were carried out until clear. The underlying bronchi showed mucosal edema and moderate endobronchitis but no masses were seen. The scope was then advanced into the left mainstem and left upper lobe segmental bronchi. This bronchi demonstrated mild endobronchitis with mucoid secretions. These were suctioned out. Next, the scope was advanced into the left lower lobe segmental bronchi. These bronchi demonstrated moderate endobronchitis with mucoid secretions. These were suctioned out and saline washings were done. The procedure was then terminated. The patient tolerated the procedure well. MD BRIAN Perez/PABLO /12:42 PM /10:34 PM
[2016-08-08] MEDS: PRAVASTATIN SOD 20 MG TAB PO SCH (22:48)
[2016-08-09] VITALS (7 sets, daily range): BP systolic 140–196; BP diastolic 75–89; PULSE 94–113; RESP 17–20; TEMP 97.7–98.2; O2SAT 92–97
[2016-08-09] MEDS: HEPARIN SODIUM - SQ 10,000 UNITS/ML VIAL SQ SCH ×3 (01:13→16:10)
[2016-08-09] MEDS: cloNIDine HCL 0.1 MG TAB PO PRN (01:14)
[2016-08-09] MEDS: RESP: ALBUTEROL 2.5 MG/IPRATROPIUM 0.5 MG NEB (SCH) INH ×6 (01:18→20:03)
[2016-08-09] MEDS: CHLORHEXIDINE GLUCONATE 2 % 1 PACK (2 CLOTHS) TOP SCH (04:00)
[2016-08-09] MEDS: guaiFENesin SOLUTION 200 MG/10 ML CUP PO SCH ×3 (05:38→21:26)
[2016-08-09] MEDS: INSULIN NovoLIN REGULAR SUPPLEMENTAL SCALE SQ SCH ×4 (06:38→21:00)
--- NOTE | 2016-08-09 07:35 | HHI.PR ---
Subjective Remarks Patient denied complaint, resting in bed comfortably She refused going to rehabilitation because she wants to go home and take care of her pets Discussed with case finisher trying to have SNF helping her with, patient is unsafe to go home by herself Objective Vitals Vital Signs Date Time Temp Pulse Resp B/P Pulse Ox O2 Delivery O2 Flow Rate FiO2 08/09/16 07:18 95 Nasal Cannula 3.00 08/09/16 00:40 97.7 94 19 170/80 94 08/09/16 00:40 Nasal Cannula 3.00 Humidified 08/08/16 21:45 Humidified 3.00 08/08/16 21:45 92 Nasal Cannula 08/08/16 21:40 98.9 97 19 175/82 94 08/08/16 21:40 Nasal Cannula 3.00 Humidified 08/08/16 16:28 97.1 100 20 165/79 92 08/08/16 13:36 97.4 86 20 211/96 94 08/08/16 08:14 97.5 90 20 176/93 95 08/08/16 08:00 64 I/O 08/08/16 08/08/16 08/08/16 08/09/16 08/09/16 08/09/16 07:00 15:00 23:00 07:00 15:00 23:00 Intake Total 900 ml Output Total 900 ml 900 ml 200 ml Balance -900 ml -900 ml 700 ml Intake Oral 900 ml Output Urine Total 900 ml 900 ml 200 ml # Bowel Movements 0 Result Diagram: 08/08/16 0639 08/08/16 0639 Objective Remarks GENERAL: 71-year-old female, was blind and extubated on nasal cannula SKIN: Warm and dry. No rash HEAD: Normocephalic. EYES: No scleral icterus. No injection or drainage. NECK: Supple, trachea midline. No JVD or lymphadenopathy. CARDIOVASCULAR: Regular rate and rhythm, no murmur RESPIRATORY: Breath sounds equal bilaterally. Positive expiratory wheeze right- sided. Fine crackles appreciated bilateral bases. GASTROINTESTINAL: Abdomen soft, non-tender, nondistended. Hypoactive bowel sounds are appreciated MUSCULOSKELETAL: Trace lower extremity edema. NEURO: Negative blind, normal speech, moving all extremities A/P Assessment and Plan 71-year-old female presents complaining of wheezing and shortness of breath. Patient has history of COPD. She was taking her medication this evening and choke on the pill. The pill may went down the wrong way, down her trachea. She has had persistent coughing since then and felt wheezing. She denies any chest pain. She has had shortness of breath, was treated with aerosols and i.v. steroids, however without significant improvement and was intubated by ED attending. Assessment Cortical blindness Sinus tachycardia - resolving Hypertensive emergency Dyslipidemia Elevated troponin - likely strain Grade 1 diastolic dysfunction Acute respiratory failure - resolving COPD Pseudomonas pneumonia Foreign body ingestion/pill Acute kidney injury Plan: pt refused going to rehabilitation because she wants to go home and take care of her pets Discussed with case finisher trying to have SNF helping her with, patient is unsafe to go home by herself Resume home medication Cozaar 50 mg daily with acute kidney injury. Resume clonidine 0.2 g by mouth 3 times a day. Switch Lopressor 2.5 every 6 to 25 mg by mouth twice a day On pravastatin 20 mg daily for dyslipidemia. Continue Echocardiogram - 2013 - grade 1 diastolic dysfunction. Mild LVH. Ejection fraction 60%. Mild MR. GILLIAN 31 mmHg Recheck with elevated troponin. Likely secondary to strain secondary sinus tachycardia Serial troponins. Peaked at 4.3. Cardiology consult appreciated Nasal cannula to maintain saturations greater than equal to 92% Incentive spirometry while awake Bronchodilator therapy every 6 hours and as needed Solu-Medrol 40 mg IV every 8 hours/pulmonary CT chest revealed scarring right upper lobe/bilateral lobes. ASCVD. 1.42.1 cm soft tissue mass mass possible aspiration possibly pill. Right bronchus intermedius with 9 mm mass possibly pill ingestion possibly mucus plugging. Pulmonary consult/status post bronchoscopy 08/05. Advanced diet as tolerated once patch speech evaluation Protonix for GI prophylaxis Colace/as needed Senokot for bowel regimen Avoid nephrotoxic drugs IV fluids will be discontinued Access - Utilize peripheral IV. Central line if indicated Prophylaxis - GI - Protonix - DVT - SCD/Lovenox Discharge Planning Patient needs to go to state however she refused, she is legally blind not safe to go home by herself, case finisher working on communicating with the [facility] if there social department can help with the patient pets Bernard Lay MD Aug 09, 2016 07:35
[2016-08-09] MEDS: ARTIFICIAL TEARS OPTH SOLN 15 ML BTL EACH EYE SCH ×3 (08:41→16:11)
[2016-08-09] MEDS: ASPIRIN 81 MG CHEW TAB CHEW SCH (08:41)
[2016-08-09] MEDS: BUDESONIDE-FORMOTEROL 160/4.5 MCG INHALER INH SCH ×2 (08:42→21:45)
[2016-08-09] MEDS: SODIUM CHLORIDE 0.9% FLUSH 5 ML FLUSH IV FLUSH SCH ×2 (08:42→21:00)
[2016-08-09] MEDS: cloNIDine HCL 0.2 MG TAB PO SCH ×4 (08:42→16:13)
[2016-08-09] MEDS: DOCUSATE SODIUM 100 MG CAP PO SCH ×2 (08:42→21:26)
[2016-08-09] MEDS: LOSARTAN 50 MG TAB PO SCH ×2 (08:43→21:25)
[2016-08-09] MEDS: METOPROLOL TARTRATE 50 MG TAB PO SCH ×2 (08:44→21:26)
[2016-08-09] MEDS: PANTOPRAZOLE SOD 40 MG DELAYED RELEASE TAB PO SCH (08:45)
[2016-08-09] MEDS ORDERED: predniSONE 20 MG TAB PO SCH (09:00)
[2016-08-09] MEDS ORDERED: HYDR-3516 PO (14:26)
[2016-08-09] MEDS ORDERED: COZA50TA PO (14:26)
[2016-08-09] MEDS ORDERED: SYMB160A INH (14:26)
[2016-08-09] MEDS ORDERED: AMLO10 PO (14:26)
[2016-08-09] MEDS ORDERED: METO-309 PO (14:26)
--- NOTE | 2016-08-09 14:57 | HHI.PR ---
Subjective Remarks Patient resting in bed comfortably she is eating lunch, she is more agreeable to go to rehabilitation today now that she had somebody to take care of her pets I discussed with her extensively and with this management, patient will go to [facility] Objective Vitals Vital Signs Date Time Temp Pulse Resp B/P Pulse Ox O2 Delivery O2 Flow Rate FiO2 08/09/16 05:30 98.2 104 17 168/78 94 08/09/16 00:40 97.7 94 19 170/80 94 08/09/16 00:40 Nasal Cannula 3.00 Humidified 08/08/16 21:45 Humidified 3.00 08/08/16 21:45 92 Nasal Cannula 08/08/16 21:40 98.9 97 19 175/82 94 08/08/16 21:40 Nasal Cannula 3.00 Humidified 08/08/16 16:28 97.1 100 20 165/79 92 I/O 08/08/16 08/08/16 08/08/16 08/09/16 08/09/16 08/09/16 07:00 15:00 23:00 07:00 15:00 23:00 Intake Total 900 ml 400 ml 480 ml Output Total 900 ml 900 ml 200 ml 600 ml 350 ml Balance -900 ml -900 ml 700 ml -200 ml 130 ml Intake Oral 900 ml 400 ml 480 ml Output Urine Total 900 ml 900 ml 200 ml 600 ml 350 ml # Bowel Movements 0 0 Result Diagram: 08/08/16 0639 08/08/16 0639 Objective Remarks GENERAL: 71-year-old female, was blind and extubated on nasal cannula SKIN: Warm and dry. No rash HEAD: Normocephalic. EYES: No scleral icterus. No injection or drainage. NECK: Supple, trachea midline. No JVD or lymphadenopathy. CARDIOVASCULAR: Regular rate and rhythm, no murmur RESPIRATORY: Breath sounds equal bilaterally. Positive expiratory wheeze right- sided. Fine crackles appreciated bilateral bases. GASTROINTESTINAL: Abdomen soft, non-tender, nondistended. Hypoactive bowel sounds are appreciated MUSCULOSKELETAL: Trace lower extremity edema. NEURO: Negative blind, normal speech, moving all extremities A/P Assessment and Plan 71-year-old female presents complaining of wheezing and shortness of breath. Patient has history of COPD. She was taking her medication this evening and choke on the pill. The pill may went down the wrong way, down her trachea. She has had persistent coughing since then and felt wheezing. She denies any chest pain. She has had shortness of breath, was treated with aerosols and i.v. steroids, however without significant improvement and was intubated by ED attending. Assessment Cortical blindness Sinus tachycardia - resolving Hypertensive emergency Dyslipidemia Elevated troponin - likely strain Grade 1 diastolic dysfunction Acute respiratory failure - resolving COPD Pseudomonas pneumonia Foreign body ingestion/pill Acute kidney injury Plan: pt refused going to rehabilitation because she wants to go home and take care of her pets Discussed with rn field case manager trying to have SNF helping her with, patient is unsafe to go home by herself Resume home medication Cozaar 50 mg daily with acute kidney injury. Resume clonidine 0.2 g by mouth 3 times a day. Switch Lopressor 2.5 every 6 to 25 mg by mouth twice a day On pravastatin 20 mg daily for dyslipidemia. Continue Echocardiogram - 2013 - grade 1 diastolic dysfunction. Mild LVH. Ejection fraction 60%. Mild MR. GILLIAN 31 mmHg Recheck with elevated troponin. Likely secondary to strain secondary sinus tachycardia Serial troponins. Peaked at 4.3. Cardiology consult appreciated, medical management adjusting medication Nasal cannula to maintain saturations greater than equal to 92% Incentive spirometry while awake Bronchodilator therapy every 6 hours and as needed Solu-Medrol 40 mg IV every 8 hours/pulmonary, switch to prednisone CT chest revealed scarring right upper lobe/bilateral lobes. ASCVD. 1.42.1 cm soft tissue mass mass possible aspiration possibly pill. Right bronchus intermedius with 9 mm mass Pulmonary consult/status post bronchoscopy 08/05.pill ingestion possibly mucus plugging. Advanced diet as tolerated once patch speech evaluation Protonix for GI prophylaxis Colace/as needed Senokot for bowel regimen Avoid nephrotoxic drugs IV fluids will be discontinued Access - Utilize peripheral IV. Central line if indicated Prophylaxis - GI - Protonix - DVT - SCD/Lovenox Discharge Planning Patient needs to go to state however she refused, she is legally blind not safe to go home by herself, rn field case manager working on communicating with the [facility] if there social department can help with the patient pets Bernard Lay MD Aug 09, 2016 14:57
--- NOTE | 2016-08-09 15:06 | HHI.DS ---
Discharge Summary Admission Date Aug 04, 2016 at 00:05 Discharge Date: Aug 09, 2016 Admitting Diagnosis (1) Elevated troponin ICD Code: R79.89 (2) Shortness of breath ICD Code: R06.02 (3) Blind in both eyes ICD Code: H54.0 (4) COPD exacerbation ICD Code: J44.1 (5) Hypertension, uncontrolled ICD Code: I10 (6) PNA (pneumonia) ICD Code: J18.9 (7) Acute respiratory failure ICD Code: J96.00 (8) COPD with acute exacerbation ICD Code: J44.1 (9) Hypertensive urgency ICD Code: I10 Procedures As below Brief History - From Admission 71-year-old female presents complaining of wheezing and shortness of breath. Patient has history of COPD. She was taking her medication this evening and choke on the pill. The pill may went down the wrong way, down her trachea. She has had persistent coughing since then and felt wheezing. She denies any chest pain. She has had shortness of breat, was treated with aerosols and i.v. steroids, however without significant improvement and was intubated by ED attending. CBC/BMP: 08/08/16 0639 08/08/16 0639 Significant Findings Laboratory Tests Test 08/07/16 08/08/16 03:05 06:39 White Blood Count 17.9 TH/MM3 12.9 TH/MM3 (4.0-11.0) (4.0-11.0) Blood Urea Nitrogen 32 MG/DL (7-18) 29 MG/DL (7-18) Estimat Glomerular Filtration 56 ML/MIN (>89) 53 ML/MIN (>89) Rate Random Glucose 162 MG/DL 118 MG/DL (74-106) (74-106) Troponin I 4.22 NG/ML (0.02-0.05) Creatinine 1.03 MG/DL (0.50-1.00) PE at Discharge GENERAL: 71-year-old female, was blind and extubated on nasal cannula SKIN: Warm and dry. No rash HEAD: Normocephalic. EYES: No scleral icterus. No injection or drainage. NECK: Supple, trachea midline. No JVD or lymphadenopathy. CARDIOVASCULAR: Regular rate and rhythm, no murmur RESPIRATORY: Breath sounds equal bilaterally. Positive expiratory wheeze right- sided. Fine crackles appreciated bilateral bases. GASTROINTESTINAL: Abdomen soft, non-tender, nondistended. Hypoactive bowel sounds are appreciated MUSCULOSKELETAL: Trace lower extremity edema. NEURO: Negative blind, normal speech, moving all extremities Transfer Summary 71-year-old female presents complaining of wheezing and shortness of breath. Patient has history of COPD. She was taking her medication this evening and choke on the pill. The pill may went down the wrong way, down her trachea. She has had persistent coughing since then and felt wheezing. She denies any chest pain. She has had shortness of breath, was treated with aerosols and i.v. steroids, however without significant improvement and was intubated by ED attending. 08/04: Afebrile. Awake on the ventilator. Currently in sinus tachycardia. Tube feeds been initiated. No bowel movement. 08/05: Currently sedated on the ventilator. Status post bronchoscopy today with removal of mucus and other debris. Currently afebrile. Appears comfortable the ventilator. Tolerating tube feeding. No bowel movement 08/06: On spontaneous breathing trials since 7:30 this morning. Currently low- dose Versed for comfort. Status post bronchoscopy yesterday with clearing of mucus/debris. Denies chest pain. One bowel movement yesterday. Subjective 08/07: Extremities yesterday without complication. Currently 4 L nasal cannula. Patient is awake and following commands. Concerns for her cats. Objective Vital Signs Date Time Temp Pulse Resp B/P Pulse Ox O2 Delivery O2 Flow Rate FiO2 08/07/16 07:23 92 Nasal Cannula 4.00 08/07/16 06:00 87 08/07/16 04:00 98.7 21 193/88 08/06/16 12:00 35 Intake and Output 08/06/16 08/06/16 08/07/16 08:00 16:00 00:00 Intake Total 519 ml 206 ml 199 ml Output Total 350 ml 450 ml 850 ml Balance 169 ml -244 ml -651 ml Result Diagram: 08/07/16 0305 08/07/16 0305 Other Results Microbiology Date/Time Procedure Status Source Growth 08/05/16 12:24 Gram Stain - Final Resulted Bronchial Washings Bronchial 08/05/16 12:24 Bronchial Culture - Preliminary Resulted Bronchial Washings Bronchial IMMATURE GROWTH - REINCUBATE 08/05/16 12:24 Fungal Smear - Final Resulted Bronchial Washings Bronchial NO FUNGAL ELEMENTS SEEN. 08/05/16 12:24 Fungal Culture Resulted Bronchial Washings Bronchial Pending 08/05/16 12:24 Acid Fast Stain Received Bronchial Washings Bronchial Pending 08/05/16 12:24 Mycobacterial Culture Received Bronchial Washings Bronchial Pending 08/03/16 20:23 Aerobic Blood Culture - Preliminary Resulted Blood Peripheral NO GROWTH IN 3 DAYS 08/03/16 20:23 Anaerobic Blood Culture - Preliminary Resulted Blood Peripheral NO GROWTH IN 3 DAYS Imaging Last Impressions Chest X-Ray 08/06/16 0000 Signed Impressions: Service Date/Time: Saturday, August 06, 2016 13:11 - CONCLUSION: New Mild infiltrate medial right lower lung. Taurus Levine MD Chest CT 08/03/16 2218 Signed Impressions: Service Date/Time: Wednesday, August 03, 2016 23:11 - CONCLUSION: There appears to be a low density focus in the bronchus intermedius as described above not a typical appearance for a aspirated foreign body however mucous plugging or mass, secretions can have this appearance. Michael Judd MD Objective Remarks GENERAL: 71-year-old female, was blind and extubated on nasal cannula SKIN: Warm and dry. No rash HEAD: Normocephalic. EYES: No scleral icterus. No injection or drainage. NECK: Supple, trachea midline. No JVD or lymphadenopathy. CARDIOVASCULAR: RRR. S1, S2 no S4. Without murmurs RESPIRATORY: Breath sounds equal bilaterally. Positive expiratory wheeze right- sided. Fine crackles appreciated bilateral bases. GASTROINTESTINAL: Abdomen soft, non-tender, nondistended. Hypoactive bowel sounds are appreciated MUSCULOSKELETAL: Trace lower extremity edema. A/P Problem List: (1) Hypertensive urgency ICD Code: I10 Status: Acute (2) COPD with acute exacerbation ICD Code: J44.1 Status: Acute (3) Acute respiratory failure ICD Code: J96.00 Status: Acute Assessment and Plan Neuro/Psych: Cortical blindness Daily sedation vacation Acetaminophen for fever Vansant/morphine for pain management CV: Sinus tachycardia - resolving Hypertensive emergency Dyslipidemia Elevated troponin - likely strain Grade 1 diastolic dysfunction Resume in a.m. 08/08 home medication Cozaar 50 mg daily with acute kidney injury. Resume clonidine 0.2 g by mouth 3 times a day. Switch Lopressor 2.5 every 6 to 25 mg by mouth twice a day On pravastatin 20 mg daily for dyslipidemia. Continue Echocardiogram - 2013 - grade 1 diastolic dysfunction. Mild LVH. Ejection fraction 60%. Mild MR. GILLIAN 31 mmHg Recheck with elevated troponin. Likely secondary to strain secondary sinus tachycardia Serial troponins. Peaked at 4.3. Cardiology consult appreciated Resp: Acute respiratory failure - resolving COPD Possible foreign body ingestion/pill Nasal cannula to maintain saturations greater than equal to 92% Incentive spirometry while awake Bronchodilator therapy every 6 hours and as needed Solu-Medrol 40 mg IV every 8 hours/pulmonary CT chest revealed scarring right upper lobe/bilateral lobes. ASCVD. 1.42.1 cm soft tissue mass mass possible aspiration possibly pill. Right bronchus intermedius with 9 mm mass possibly pill ingestion possibly mucus plugging. Pulmonary consult/status post bronchoscopy 08/05. GI: Advanced diet as tolerated once patch speech evaluation Protonix for GI prophylaxis Colace/as needed Senokot for bowel regimen : Stephen for accurate I's and O's in a critically ill patient Endo: Sliding-scale insulin with Accu-Cheks to maintain euglycemia TSH within normal limits Renal: Acute kidney injury Avoid nephrotoxic drugs IV fluids will be discontinued Heme: Leukocytosis Follow CBC name. Monitor trends ID: Pseudomonas pneumonia Pertinent cultures 08/03 - Blood cultures 2 -no growth 08/04 - Sputum -Pseudomonas 08/05 - bronchus - no growth Continue Levaquin. FEN: Replace electrolytes as clinically indicated MSK: PT evaluate and treat Access - Utilize peripheral IV. Central line if indicated Prophylaxis - GI - Protonix - DVT - SCD/Lovenox Critical Care: The total care time was 35 minutes. Time to perform other separately billable procedures was not included in the critical care time. Patient is stable from a critical care medicine standpoint. We'll assign care to hospitalist in a.m. 08/08. Transfer to floor. Hospital Course 71 years old female transferred to hospitalist service from intensive care as mentioned above she was admitted for Acute respiratory failure ,Hypertensive emergency,COPD Pseudomonas pneumonia,Foreign body ingestion/pill,Acute kidney injury,Sinus tachycardia,Elevated troponin Dyslipidemia, - ,,Grade 1 diastolic dysfunction, Vision admitted to ICU with pulmonary consultation and cardiology consultation, she had a bronchoscopy and 2-D echo, CT chest revealed scarring right upper lobe /bilateral lobes. ASCVD. 1.42.1 cm soft tissue mass mass possible aspiration possibly pill. Right bronchus intermedius with 9 mm mass Pulmonary consult/status post bronchoscopy 08/05.pill ingestion possibly mucus plugging. Echocardiogram - 2013 - grade 1 diastolic dysfunction. Mild LVH. Ejection fraction 60%. Mild MR. GILLIAN 31 mmHg Serial troponins. Peaked at 4.3., Cardiology consult appreciated, medical management adjusting medication,, Nasal cannula to maintain saturations greater than equal to 92% Incentive spirometry while awake,Bronchodilator therapy every 6 hours and as needed,Solu-Medrol 40 mg IV every 8 hours/pulmonary, switch to prednisone, Advanced diet as tolerated, s/p speech evaluation, Protonix for GI prophylaxis , Colace/as needed Senokot for bowel regimen, Avoid nephrotoxic drugs, Status post iv fluid initially pt refused going to rehabilitation because she wants to go home and take care of her pets Discussed with casey saw operator trying to have SNF helping her with, patient is unsafe to go home by herself [id number] encounter performed with the patient on discharge day, as well as physical exam, summary of hospitalization course and postdischarge plan has been D/W the patient. D/W nurse D/W casey saw operator. Discharge medications reviewed and printed and signed, post discharge follow up visit with PCP and other specialist as well as Brief hospital course and discharge summary has been placed. Pt Condition on Discharge: Stable Discharge Disposition: Discharge to SNF Discharge Time: > 30 minutes Discharge Instructions DIET: Follow Instructions for: Heart Healthy Diet Activities you can perform: See Additionl Instruction Other Activity Instructions: Per PT recommend a New Medications: Amlodipine (Norvasc) 10 Mg Tab 10 MG PO DAILY hypertension #30 TAB Budesonide-Formoterol Inh (Symbicort Inh) 160-4.5 Mcg/Act Aero 2 PUFF INH Q12HR COPD #1 INHALER Hydrocodone-Acetaminophen (Hydrocodone-Acetaminophen) 5-325 mg Tab 1 TAB PO Q4H PRN PAIN SCALE 3 TO 5 #25 TAB Losartan (Cozaar) 50 Mg Tab 50 MG PO BID HTN #60 TAB Metoprolol Tartrate (Lopressor) 50 Mg Tab 50 MG PO Q12HR HTN #60 TAB Continued Medications: Albuterol Neb (Albuterol Neb) 2.5 Mg/0.5 Ml Neb 2.5 MG NEB Q4HR NEB Note: The Albuterol Sulfate Inhalation Solution is concentrated and must be diluted. Read complete instructions carefully before using. PRN breathing EA Clonidine (Catapres) 0.2 Mg Tab 0.2 MG PO TID Blood Pressure Management #60 Ref 0 TAB Ipratropium-Albuterol Neb (Duoneb) 0.5-2.5 Mg/3 Ml Neb 1 NEBULE INH Q4HR NEB SHORTNESS OF BREATH #120 Ref 0 NEBULE Pravastatin (Pravastatin) 20 Mg Tab 20 MG PO DAILY Cholesterol Management #30 Ref 0 TAB Bernard Lay MD Aug 09, 2016 15:06
[2016-08-09] MEDS: CHLORHEXIDINE 0.12% (ORAL KIT) 15 ML CUP MT SCH ×2 (16:07→21:45)
[2016-08-09] MEDS: PRAVASTATIN SOD 20 MG TAB PO SCH (21:25)
== END 2016-08-09 21:50 | DRG 208 ==
LOC: NEPE 20:03 → NEDA 08-04 00:05 → HIMW 08-04 02:00 → N05A 08-07 12:48
PROVIDERS: ADMIT Hospitalist; ATTEND Hospitalist
PROC: 5A1945Z Respiratory Ventilation, 24-96 Consecutive Hours (ICD-10-PCS; principal; 2016-08-04)
PROC: 0BH17EZ Insertion of Endotracheal Airway into Trachea, Via Natural or Artificial Opening (ICD-10-PCS; 2016-08-04)
PROC: 0B9B8ZX Drainage of Left Lower Lobe Bronchus, Via Natural or Artificial Opening Endoscopic, Diagnostic (ICD-10-PCS; 2016-08-05)
PROC: 0B958ZX Drainage of Right Middle Lobe Bronchus, Via Natural or Artificial Opening Endoscopic, Diagnostic (ICD-10-PCS; 2016-08-05)
PROC: 0B968ZX Drainage of Right Lower Lobe Bronchus, Via Natural or Artificial Opening Endoscopic, Diagnostic (ICD-10-PCS; 2016-08-05)
DX: J96.00 Acute respiratory failure, unspecified whether with hypoxia or hypercapnia (principal); J69.0 Pneumonitis due to inhalation of food and vomit; J15.1 Pneumonia due to Pseudomonas; N17.9 Acute kidney failure, unspecified; J44.1 Chronic obstructive pulmonary disease with (acute) exacerbation; T17.990A Other foreign object in respiratory tract, part unspecified in causing asphyxiation, initial encounter; I16.0 Hypertensive urgency; I10 Essential (primary) hypertension; H54.8 Legal blindness, as defined in USA; R73.03 Prediabetes; E87.6 Hypokalemia; R00.0 Tachycardia, unspecified; E78.5 Hyperlipidemia, unspecified; R74.8 Abnormal levels of other serum enzymes; I25.10 Atherosclerotic heart disease of native coronary artery without angina pectoris; E66.3 Overweight; Z68.32 Body mass index [BMI] 32.0-32.9, adult
CPT/HCPCS: 36600; 71010; 71260; 76937; 78452; 80048; 80053; 80061; 81001; 82550; 82552; 82805; 82948; 83605; 83735; 83880; 84100; 84443; 84484; 85007; 85025; 85027; 85610; 85730; 87015; 87040; 87070; 87077; 87102; 87107; 87116; 87186; 87205; 87206; 87641; 88112; 88305; 93005; 93017; 93306; 94002; 94003; 94150; 94640; 94664; 96374; 96375; 96376; A9502; C9113; J0153; J0360; J1644; J1956; J2060; J2250; J2405; J2765; J2785; J2920; J3010; J3475; J3480; J7030; J7512; Q9967

== ENCOUNTER 2017-10-17 01:18 | Inpatient (IN) | payer MEDICARE ==
[2017-10-17] VITALS (9 sets, daily range): BP systolic 103–155; BP diastolic 55–64; PULSE 52–97; RESP 14–21; TEMP 96–98.5; O2SAT 94–98
[~2017-10-17 01:18] MED LIST changes: +ALBU.5I NEB; -ALBU0.086 INH; +AMLO10 PO; -AMLO2.5T PO; -ASPI325T PO; -ATRO17AE INH; +HYDR-3516 PO; +IPRASOL INH; -LACT20SO4 PO; -LEVO500T3 PO; -LOPE2 PO; +METO-309 PO; -PRAV20 PO; +PRAV20TA2 PO; +SYMB160A INH
[2017-10-17] MEDS ORDERED: SODIUM CHLORID 0.9% 500 ML INJ 500 ML IV ONE (02:15)
[2017-10-17 02:19] LABS: AUTOMATED NEUTROPHIL # 11.4 TH/MM3 (1.8-7.7); BASOPHIL # 0.1 TH/MM3 (0-0.2); BASOPHIL % 0.5 % (0.0-2.0); EOSINOPHIL # 0.1 TH/MM3 (0-0.4); EOSINOPHIL % 0.5 % (0.0-4.0); HEMATOCRIT 44.1 % (35.0-46.0); HEMOGLOBIN 15.1 GM/DL (11.6-15.3); LYMPH % 11.5 % (9.0-44.0); LYMPHOCYTE # 1.6 TH/MM3 (1.0-4.8); MEAN CELL VOLUME 86.4 FL (80.0-100.0); MEAN CORPUSCULAR HEMOGLOBIN 29.6 PG (27.0-34.0); MEAN CORPUSCULAR HGB CONC 34.2 % (32.0-36.0); MEAN PLATELET VOLUME 7.5 FL (7.0-11.0); MONO % 7.8 % (0.0-8.0); MONOCYTE # 1.1 TH/MM3 (0-0.9); NEUT % 79.7 % (16.0-70.0); PLATELET COUNT 333 TH/MM3 (150-450); WHITE BLOOD COUNT 14.3 TH/MM3 (4.0-11.0)
--- NOTE | 2017-10-17 02:30 | PD ---
HPI Chief Complaint: General Weakness Time Seen by Provider: 01:31 Travel History International Travel<30 days: No Contact w/Intl Traveler<30days: No Traveled to known affect area: No History of Present Illness HPI Patient is a 72-year-old female who lives at home with her they are both blind they do not have any us help or assistance apparently for the last few days the patient has been feeling she cannot move well. says she has been talking somewhat confused as if he says she seems to think she is in 2 places at once is what he says. Patient denies chest pain she denies dysuria she denies fever her only complaint is that she has had excessive diarrhea and has been trying to replace orally but she has been drinking free water mainly when I ask her about Gatorade or electrolyte water she says that he Gatorade. Patient has not seen another doctor for this complaint she is brought in by EMS they found her to be hypotensive with systolic at 88 they gave her 500 cc bolus and her pressure comes up to 102 in the ER we will evaluate her sodium her creatinine her dehydration status her urine for infection CAT scan to look for source of altered mental status and she denies any obvious pain she just is globally she feels she cannot move the way she normally does for the last few days. says the symptoms have been getting worse for the last 2 days PFSH Past Medical History Heart Rhythm Problems: Yes (tachycardia) Cancer: No Cardiovascular Problems: Yes COPD: Yes Diabetes: Yes (BORDERLINE) Patient Takes Glucophage: No Diminished Hearing: No Endocrine: Yes Genitourinary: No Hypertension: Yes Implanted Vascular Access Dvce: No Musculoskeletal: No Neurologic: Yes (blind since ) Psychiatric: No Respiratory: Yes Tetanus Vaccination: > 5 Years Influenza Vaccination: Yes Menopausal: Yes Past Surgical History Eye Surgery: Yes ( AN ) Other Surgery: Yes Social History Alcohol Use: Yes (ON OCCASION) Tobacco Use: No Substance Use: No Allergies-Medications (Allergen,Severity, Reaction): Coded Allergies: penicillin G (Unverified Allergy, Intermediate, Rash, 02/19/17) Reported Meds & Prescriptions Reported Meds & Active Scripts Active Lopressor (Metoprolol Tartrate) 50 Mg Tab 50 Mg PO Q12HR Symbicort Inh (Budesonide/Formoterol Fumarate) 160-4.5 Mcg/Act Aero 2 Puff INH Q12HR Norvasc (Amlodipine Besylate) 10 Mg Tab 10 Mg PO DAILY Reported Catapres (Clonidine) 0.2 Mg Tab 0.2 Mg PO TID Duoneb (Ipratropium-Albuterol Neb) 0.5-2.5 Mg/3 Ml Neb 1 Nebule INH Q4HR NEB Albuterol Neb (Albuterol Sulfate) 2.5 Mg/0.5 Ml Neb 2.5 Mg NEB Q4HR NEB PRN Note: The Albuterol Sulfate Inhalation Solution is concentrated and must be diluted. Read complete instructions carefully before using. Pravastatin 20 Mg Tab 20 Mg PO DAILY Review of Systems Except as stated in HPI: all other systems reviewed are Neg Gastrointestinal: Positive: Diarrhea Neurologic: Positive: Weakness Physical Exam Narrative GENERAL: PT IS BLIND EYE CLOSED SKIN: Warm and dry. HEAD: Atraumatic. Normocephalic. EYES:. blind with no vision ENT: No nasal bleeding or discharge. Mucous membranes pink and moist. NECK: Trachea midline. No JVD. CARDIOVASCULAR: Regular rate and rhythm. RESPIRATORY: No accessory muscle use. Clear to auscultation. Breath sounds equal bilaterally. GASTROINTESTINAL: Abdomen soft, non-tender, nondistended. Hepatic and splenic margins not palpable. MUSCULOSKELETAL: Extremities without clubbing, cyanosis, or edema. No obvious deformities. NEUROLOGICAL: Awake and alert. Motor grossly within normal limits. Five out of 5 muscle strength in the arms and legs. Normal speech. PSYCHIATRIC: Appropriate mood and affect; Data Data Last Documented VS Vital Signs Date Time Temp Pulse Resp B/P (MAP) Pulse Ox O2 Delivery O2 Flow Rate FiO2 10/17/17 01:34 96.0 10/17/17 01:31 52 14 103/55 (71) 96 Orders Orders Electrocardiogram (10/17/17 01:48) Complete Blood Count With Diff (10/17/17 01:48) Comprehensive Metabolic Panel (10/17/17 01:48) Ckmb (Isoenzyme) Profile (10/17/17 01:48) Troponin I (10/17/17 01:48) Lipase (10/17/17 01:48) Urinalysis - C+S If Indicated (10/17/17 01:48) Magnesium (Mg) (10/17/17 01:48) Ammonia (10/17/17 01:48) Thyroid Stimulating Hormone (10/17/17 01:48) Chest, Single Ap (10/17/17 01:48) Type And Screen (10/17/17 01:48) Alcohol (Ethanol) (10/17/17 01:48) Salicylates (Aspirin) (10/17/17 01:48) Tylenol (Acetaminophen) (10/17/17 01:48) Lactic Acid (10/17/17 01:57) Sodium Chlorid 0.9% 500 Ml Inj (Ns 500 M (10/17/17 02:15) Sodium Chlor 0.9% 1000 Ml Inj (Ns 1000 M (10/17/17 03:00) Albuterol-Ipratropium Neb (Duoneb Neb) (10/17/17 03:45) Urinary Catheter Management MOIRA.Q8H (10/17/17 03:34) Sodium Chlor 0.9% 1000 Ml Inj (Ns 1000 M (10/17/17 04:00) Admit Order (Ed Use Only) (10/17/17 03:48) Labs Laboratory Tests Test 10/17/17 01:50 White Blood Count 14.3 TH/MM3 Red Blood Count 5.10 MIL/MM3 Hemoglobin 15.1 GM/DL Hematocrit 44.1 % Mean Corpuscular Volume 86.4 FL Mean Corpuscular Hemoglobin 29.6 PG Mean Corpuscular Hemoglobin Concent 34.2 % Red Cell Distribution Width 14.0 % Platelet Count 333 TH/MM3 Mean Platelet Volume 7.5 FL Neutrophils (%) (Auto) 79.7 % Lymphocytes (%) (Auto) 11.5 % Monocytes (%) (Auto) 7.8 % Eosinophils (%) (Auto) 0.5 % Basophils (%) (Auto) 0.5 % Neutrophils # (Auto) 11.4 TH/MM3 Lymphocytes # (Auto) 1.6 TH/MM3 Monocytes # (Auto) 1.1 TH/MM3 Eosinophils # (Auto) 0.1 TH/MM3 Basophils # (Auto) 0.1 TH/MM3 CBC Comment DIFF FINAL Differential Comment Blood Urea Nitrogen 64 MG/DL Creatinine 5.04 MG/DL Random Glucose 114 MG/DL Total Protein 7.8 GM/DL Albumin 3.4 GM/DL Calcium Level 9.6 MG/DL Magnesium Level 2.1 MG/DL Alkaline Phosphatase 61 U/L Aspartate Amino Transf (AST/SGOT) 37 U/L Alanine Aminotransferase (ALT/SGPT) 24 U/L Total Bilirubin 0.5 MG/DL Sodium Level 133 MEQ/L Potassium Level 4.8 MEQ/L Chloride Level 95 MEQ/L Carbon Dioxide Level 24.6 MEQ/L Anion Gap 13 MEQ/L Estimat Glomerular Filtration Rate 8 ML/MIN Lactic Acid Level 1.3 mmol/L Ammonia 51 MCMOL/L Total Creatine Kinase 69 U/L Troponin I 0.09 NG/ML Lipase 322 U/L Free Thyroxine 0.97 NG/DL Free Triiodothyronine (T3) pg/dL 2.59 PG/ML Thyroid Stimulating Hormone 3rd Gen 5.560 uIU/ML Salicylates Level LESS THAN 1.7 MG/DL Acetaminophen Level LESS THAN 2.0 MCG/ML Ethyl Alcohol Level LESS THAN 3 MG/DL MDM Medical Decision Making Medical Screen Exam Complete: Yes Emergency Medical Condition: Yes Interpretation(s) Chest xray Large Left perihilar mass Differential Diagnosis pt has AMS due to dehydration vs hyponatremia versus hypokalemia versus hypocalcemia versus altered mental status due to infection of the urine versus pneumonia versus ischemic injury cerebral Narrative Course CAT scan is ordered , urine is sent after long negotiation over ames, pt refused until severity of her renal failure explained . @ liters NS ordered to correct pre-renal failure dehydration volume depletion ---> labs are sent fluid is given for dehydration, pt admitted to hospitalist for severe dehydration renal failure pre-renal,, UA obtained and sent to lab CHEST XRAY --> large L perihilar MASS Critical Care Narrative 30 min --> fluid resusitation of severe dehydration renal failure -- eval fluid resistiation and UA and ames and K eval to assure no rsik for arrhythmia due to possible electrolyte imbalnce from renal failure lack of clearacne Diagnosis Primary Impression: Acute renal failure Qualified Codes: N17.9 - Acute kidney failure, unspecified Additional Impression: Dehydration, severe Admitting Information Admitting Physician Requests: Admit Scripts Cefuroxime (Cefuroxime) 500 Mg Tab 500 MG PO BID for Infection, #4 TAB 0 Refills Prov: Tangela Swanson MD 10/19/17 Hydrocodone-Acetaminophen (Hydrocodone-Acetaminophen) 5-325 mg Tab 1 TAB PO Q4H Y for severe pain, #10 TAB Prov: Tangela Swanson MD 10/19/17 Onel Bob MD Oct 17, 2017 02:30
[2017-10-17 02:46] LABS: ALBUMIN 3.4 GM/DL (3.4-5.0); ALKALINE PHOSPHATASE 61 U/L (45-117); ALT (GPT) 24 U/L (10-53); AST (GOT) 37 U/L (15-37); BICARBONATE 24.6 MEQ/L (21.0-32.0); BLOOD UREA NITROGEN 64 MG/DL (7-18); CALCIUM 9.6 MG/DL (8.5-10.1); CHLORIDE 95 MEQ/L (98-107); CREATININE 5.04 MG/DL (0.50-1.00); GLOMERULAR FILTRATION RATE 8 ML/MIN (>89); GLUCOSE,RANDOM 114 MG/DL (74-106); MAGNESIUM 2.1 MG/DL (1.5-2.5); SODIUM (NA) 133 MEQ/L (136-145); TOTAL BILIRUBIN ADULT 0.5 MG/DL (0.2-1.0); TOTAL PROTEIN 7.8 GM/DL (6.4-8.2); TROPONIN I 0.09 NG/ML (0.02-0.05)
[2017-10-17 02:47] LABS: ACETAMINOPHEN LESS THAN 2.0 MCG/ML (10.0-30.0)
--- NOTE | 2017-10-17 02:56 | RADRPT ---
EXAM DATE/TIME: 10/17/2017 02:09 [facility] COMPARISON: CHEST SINGLE AP, August 08, 2016, 5:43. INDICATIONS : Shortness of breath and weakness. MEDICAL HISTORY : Cardiovascular disease. Chronic obstructive pulmonary disease. SURGICAL HISTORY : None. ENCOUNTER: Initial ACUITY: 4 - 6 days PAIN SCORE: 0/10 LOCATION: chest FINDINGS: There is a large left perihilar mass. Right lung is grossly clear. Heart size and pulmonary vasculari ty are grossly normal. CONCLUSION: Large left perihilar mass. Recommend CT chest with contrast for further evaluation Freddy Posada MD on October 17, 2017 at 2:53 Board Certified Radiologist. This report was verified electronically.
[2017-10-17] MEDS ORDERED: SODIUM CHLOR 0.9% 1000 ML INJ 1,000 ML IV ONE ×2 (03:00→04:00)
[2017-10-17] MEDS ORDERED: RESP: ALBUTEROL 2.5 MG/IPRATROPIUM 0.5 MG NEB (SCH) NEB ONE (03:45)
[2017-10-17] MEDS ORDERED: SODIUM CHLORIDE 0.9% FLUSH 10 ML FLUSH IV FLUSH PRN (04:00)
[2017-10-17] MEDS ORDERED: NALOXONE HCL 0.4 MG/ML AMP IV PUSH PRN (04:00)
[2017-10-17] MEDS ORDERED: ONDANSETRON HCL 4 MG/2 ML VIAL IVP PRN (04:00)
[2017-10-17] MEDS ORDERED: ACETAMINOPHEN 325 MG TAB PO PRN (04:00)
[2017-10-17 04:39] LABS: BACTERIA, URINE MANY /hpf; BILIRUBIN, URINE NEG (NEG); BLOOD, URINE SMALL (NEG); GLUCOSE,URINE NEG (NEG); HYALINE CAST, URINE 24 /lpf (RARE); KETONE, URINE NEG (NEG); MUCUS URINE MANY /lpf (OCC); NITRITE,URINE NEG (NEG); PH, URINE 5.5 (5.0-8.5); SQUAMOUS EPITHELIAL CELL URINE 4 /hpf (0-5); URINE COLOR YELLOW (YELLW/STRAW); URINE LEUKOCYTE ESTERASE LARGE (NEG); WHITE BLOOD CELL CLUMPS OCC
[2017-10-17 04:57] LABS: FREE T3 2.59 PG/ML (2.18-3.98); FREE T4 0.97 NG/DL (0.76-1.46)
[2017-10-17] MEDS ORDERED: DEXTROSE 50% IN WATER 50 ML VIAL(D50) IV PUSH PRN (05:00)
[2017-10-17] MEDS ORDERED: RESP: ALBUTEROL 2.5 MG/IPRATROPIUM 0.5 MG NEB (PRN) INH (05:00)
[2017-10-17] MEDS ORDERED: GLUCAGON 1 MG/ML VIAL OTHER PRN (05:00)
--- NOTE | 2017-10-17 05:00 | HHI.HP ---
HPI Service [facility] Primary Care Physician Unknown Admission Diagnosis dirrhea severe prerenal ARF dehydration Diagnoses: Travel History International Travel<30 Days: No Contact w/Intl Traveler <30 Da: No Traveled to Known Affected Are: No History of Present Illness 72-year-old female with a past medical history significant for diabetes mellitus , COPD, hypertension and hyperlipidemia with blindness presents to the emergency department for evaluation of 3 days of diarrhea. The patient reports decreased p.o. intake 3 days with epigastric abdominal pain and emesis 1. She denies any fever/chills. No chest pain or shortness of breath. No lateralizing signs/symptoms. Endorses mild weakness/fatigue. Patient was found to be in acute renal failure with a creatinine of 5.04, baseline 1. She denies any CVA tenderness. Was unable to produce urine in the emergency department despite 3 L. Review of Systems Except as stated in HPI: all other systems reviewed are Neg Past Family Social History Past Medical History diabetes mellitus, COPD, hypertension and hyperlipidemia and blindness Past Surgical History Left foot surgery Tonsillectomy Reported Medications Reported Meds & Active Scripts Active Cozaar (Losartan Potassium) 50 Mg Tab 50 Mg PO BID Lopressor (Metoprolol Tartrate) 50 Mg Tab 50 Mg PO Q12HR Hydrocodone-Acetaminophen 5-325 mg Tab 1 Tab PO Q4H PRN Symbicort Inh (Budesonide/Formoterol Fumarate) 160-4.5 Mcg/Act Aero 2 Puff INH Q12HR Norvasc (Amlodipine Besylate) 10 Mg Tab 10 Mg PO DAILY Reported Catapres (Clonidine) 0.2 Mg Tab 0.2 Mg PO TID Duoneb (Ipratropium-Albuterol Neb) 0.5-2.5 Mg/3 Ml Neb 1 Nebule INH Q4HR NEB Albuterol Neb (Albuterol Sulfate) 2.5 Mg/0.5 Ml Neb 2.5 Mg NEB Q4HR NEB PRN Note: The Albuterol Sulfate Inhalation Solution is concentrated and must be diluted. Read complete instructions carefully before using. Pravastatin 20 Mg Tab 20 Mg PO DAILY Allergies: Coded Allergies: penicillin G (Unverified Allergy, Intermediate, Rash, 02/19/17) Family History Mother with diabetes mellitus Social History Quit tobacco in 2010. Rare alcohol. Denies illicit drugs. Physical Exam Vital Signs Vital Signs Date Time Temp Pulse Resp B/P (MAP) Pulse Ox O2 Delivery O2 Flow Rate FiO2 10/17/17 01:34 96.0 10/17/17 01:31 96.0 52 14 103/55 (33) 96 Physical Exam GENERAL: female lying in bed SKIN: No rashes, ecchymoses or lesions. Cool and dry. HEAD: Atraumatic. Normocephalic. No temporal or scalp tenderness. EYES: Pupils equal round and reactive. Extraocular motions intact. No scleral icterus. No injection or drainage. ENT: Nose without bleeding, purulent drainage or septal hematoma. Throat without erythema, tonsillar hypertrophy or exudate. Uvula midline. Airway patent. NECK: Trachea midline. No JVD or lymphadenopathy. Supple, nontender, no meningeal signs. CARDIOVASCULAR: Regular rate and rhythm without murmurs, gallops, or rubs. RESPIRATORY: Clear to auscultation. Breath sounds equal bilaterally. No wheezes , rales, or rhonchi. GASTROINTESTINAL: Abdomen soft, mildly tender to palpation in the epigastrium, nondistended. No hepato-splenomegaly, or palpable masses. No guarding. MUSCULOSKELETAL: Extremities without clubbing, cyanosis, or edema. No joint tenderness, effusion, or edema noted. No calf tenderness. NEUROLOGICAL: Awake and alert. Cranial nerves II through XII intact. Motor and sensory grossly within normal limits. Normal speech. Laboratory Laboratory Tests Test 10/17/17 01:50 10/17/17 04:22 White Blood Count 14.3 Red Blood Count 5.10 Hemoglobin 15.1 Hematocrit 44.1 Mean Corpuscular Volume 86.4 Mean Corpuscular Hemoglobin 29.6 Mean Corpuscular Hemoglobin Concent 34.2 Red Cell Distribution Width 14.0 Platelet Count 333 Mean Platelet Volume 7.5 Neutrophils (%) (Auto) 79.7 Lymphocytes (%) (Auto) 11.5 Monocytes (%) (Auto) 7.8 Eosinophils (%) (Auto) 0.5 Basophils (%) (Auto) 0.5 Neutrophils # (Auto) 11.4 Lymphocytes # (Auto) 1.6 Monocytes # (Auto) 1.1 Eosinophils # (Auto) 0.1 Basophils # (Auto) 0.1 CBC Comment DIFF FINAL Differential Comment Blood Urea Nitrogen 64 Creatinine 5.04 Random Glucose 114 Total Protein 7.8 Albumin 3.4 Calcium Level 9.6 Magnesium Level 2.1 Alkaline Phosphatase 61 Aspartate Amino Transf (AST/SGOT) 37 Alanine Aminotransferase (ALT/SGPT) 24 Total Bilirubin 0.5 Sodium Level 133 Potassium Level 4.8 Chloride Level 95 Carbon Dioxide Level 24.6 Anion Gap 13 Estimat Glomerular Filtration Rate 8 Lactic Acid Level 1.3 Ammonia 51 Total Creatine Kinase 69 Troponin I 0.09 Lipase 322 Thyroid Stimulating Hormone 3rd Gen 5.560 Salicylates Level LESS THAN 1.7 Acetaminophen Level LESS THAN 2.0 Ethyl Alcohol Level LESS THAN 3 Urine Color YELLOW Urine Turbidity HAZY Urine pH 5.5 Urine Specific [place] 1.016 Urine Protein 30 Urine Glucose (UA) NEG Urine Ketones NEG Urine Occult Blood SMALL Urine Nitrite NEG Urine Bilirubin NEG Urine Urobilinogen LESS THAN 2.0 Urine Leukocyte Esterase LARGE Urine RBC 4 Urine WBC 103 Urine WBC Clumps OCC Urine Squamous Epithelial Cells 4 Urine Bacteria MANY Urine Hyaline Casts 24 Urine Mucus MANY Microscopic Urinalysis Comment CATH-CULTURE IND Date/Time Source Procedure Growth Status 10/17/17 04:22 Urine Catheterized Urine Urine Culture Pending Received Result Diagram: 10/17/17 0150 10/17/17 015 Caprini VTE Risk Assessment Caprini VTE Risk Assessment: Mod/High Risk (score >= 2) Caprini Risk Assessment Model Point Value = 1 Point Value = 2 Point Value = 3 Point Value = 5 Age 41-60 Minor surgery BMI > 25 kg/m2 Swollen legs Varicose veins or History of unexplained or recurrent spontaneous Oral contraceptives or hormone replacement Sepsis (< 1 month) Serious lung disease, including pneumonia (< 1 month) Abnormal pulmonary function Acute myocardial infarction Congestive heart failure (< 1 month) History of inflammatory bowel disease Medical patient at bed rest Age 61-74 Arthroscopic surgery Major open surgery (> 45 min) Laparoscopic surgery (> 45 min) Malignancy Confined to bed (> 72 hours) Immobilizing plaster cast Central venous access Age >= 75 History of VTE Family history of VTE Factor V Leiden Prothrombin [id number] Lupus anticoagulant Anticardiolipin antibodies Elevated serum homocysteine Heparin-induced thrombocytopenia Other congenital or acquired thrombophilia Stroke (< 1 month) Elective arthroplasty Hip, pelvis, or leg fracture Acute spinal cord injury (< 1 month) Prophylaxis Regimen Total Risk Factor Score Risk Level Prophylaxis Regimen 0-1 Low Early ambulation 2 Moderate Order ONE of the following: *Sequential Compression Device (SCD) *Heparin 5000 units SQ BID 3-4 Higher Order ONE of the following medications: *Heparin 5000 units SQ TID *Enoxaparin/Lovenox 40 mg SQ daily (WT < 150 kg, CrCl > 30 mL/min) *Enoxaparin/Lovenox 30 mg SQ daily (WT < 150 kg, CrCl > 10-29 mL/min) *Enoxaparin/Lovenox 30 mg SQ BID (WT < 150 kg, CrCl > 30 mL/min) AND/OR *Sequential Compression Device (SCD) 5 or more Highest Order ONE of the following medications: *Heparin 5000 units SQ TID (Preferred with Epidurals) *Enoxaparin/Lovenox 40 mg SQ daily (WT < 150 kg, CrCl > 30 mL/min) *Enoxaparin/Lovenox 30 mg SQ daily (WT < 150 kg, CrCl > 10-29 mL/min) *Enoxaparin/Lovenox 30 mg SQ BID (WT < 150 kg, CrCl > 30 mL/min) AND *Sequential Compression Device (SCD) Assessment and Plan Assessment and Plan Assessment/plan: 1. Acute renal failure BUN/creatinine 64/5.04 Renal ultrasound pending Nephrology consulted, appreciate recommendations IV fluid hydration 2. Urinary tract infection UA consistent with UTI Urine culture pending Rocephin 3. Hypertension Patient hypotensive at this time with a blood pressure of 103/55 Holding home antihypertensives Restart once indicated 4. COPD DuoNeb's as needed Symbicort 5. Diabetes mellitus Sliding-scale insulin Monitor blood glucose 6. Diarrhea Stool studies pending FEN Renal diet Electrolytes: Monitor and replete as needed Heparin NS 100 cc/hour Physician Certification 2 Midnight Certification Type: Admission for Inpatient Services Order for Inpatient Services The services are ordered in accordance with Medicare regulations or non- Medicare payer requirements, as applicable. In the case of services not specified as inpatient-only, they are appropriately provided as inpatient services in accordance with the 2-midnight benchmark. Estimated LOS (days): 2 2 days is the estimated time the patient will need to remain in the hospital, assuming treatment plan goals are met and no additional complications. Post-Hospital Plan: Not yet determined Paloma Acuña MD Oct 17, 2017 05:00
[2017-10-17] MEDS: cefTRIAXone INJ 1,000 MG in SODIUM CHLORIDE 0.9% INJ 100 ML IV SCH (05:45)
[2017-10-17] MEDS: SODIUM CHLOR 0.9% 1000 ML INJ 1,000 ML IV SCH ×3 (05:45→22:40)
[2017-10-17] MEDS: INSULIN ASPART SUPPLEMENTAL SCALE SQ SCH ×4 (08:00→20:37)
--- NOTE | 2017-10-17 09:00 | RADRPT ---
EXAM DATE/TIME: 10/17/2017 08:00 [place] COMPARISON: No previous studies available for comparison. INDICATIONS : Increased BUN/creatinine. MEDICAL HISTORY : Hypertension. Chronic obstructive pulmonary disease. Tachycardia. Borderline diabetes. Blind since . SURGICAL HISTORY : Tonsillectomy. Eye surgery. Left foot surgery. ENCOUNTER: Initial ACUITY: 1 day PAIN SCORE: 2/10 LOCATION: Bilateral flank MEASUREMENTS: RIGHT KIDNEY: 10.5 x 4.9 x 4.9 cm LEFT KIDNEY: 10.0 x 4.9 x 5.2 cm FINDINGS: RIGHT KIDNEY: Renal cortex is normal in thickness and echotexture. 6 mm cyst No hydronephrosis, stone, or mass. LEFT KIDNEY: Renal cortex is normal in thickness and echotexture. 8 mm cyst No hydronephrosis, s tone, or mass. BLADDER: Mitchell in place CONCLUSION: Normal appearing kidneys without hydronephrosis or mass Jass Pinzon MD FACR on October 17, 2017 at 8:55 Board Certified Radiologist. This report was verified electronically.
[2017-10-17] MEDS: HEPARIN SODIUM - SQ 10,000 UNITS/ML VIAL SQ SCH ×2 (09:31→20:36)
[2017-10-17] MEDS: SODIUM CHLORIDE 0.9% FLUSH 10 ML FLUSH IV FLUSH SCH ×2 (09:31→20:36)
[2017-10-17] MEDS: BUDESONIDE-FORMOTEROL 160/4.5 MCG INHALER INH SCH ×2 (09:32→20:34)
--- NOTE | 2017-10-17 09:40 | PD.PN.STU ---
Subjective Remarks The patient is a 72 year old female with a hx of COPD, IBS, diabetes, and hypertension who has been blind since and presents with the complaint of "diarrhea. The diarrhea started 3 days ago out of no where and has not gotten any better. She had mild nausea and only vomited 1 time. She has not had any sick contacts, eaten at any new places, or traveled in the past 2 months. She said she felt like she had a UTI 2 weeks ago but did not take any antibiotics and that it went away on its own. She says there are no alleviating or aggravating factors. She was able to eat some crackers and drink water but she felt like it would come right out in her runny stool. She denies any current dysuria or urinary frequency. She has also had some generalized abdominal pain over the past 3 days that she thinks is resolving. She states that she has not been very hungry but today she is starving. Her last bowel movement was last night at 8pm. She came to the ED because she was worried about not keeping food or liquids in her. Due to her blindness she was unable to say if there is blood in her urine or stool. She denies any chest pain/ pressure, new SOB, muscle aches, fevers, chills, or night sweats. PMH-hypertension, diabetes, IBS, COPD, hyperlipidemia Social hx: smoked 2-4 packs per day for 50 years but quit in 2010, denies alcohol use Objective Vitals Vital Signs Date Time Temp Pulse Resp B/P (MAP) Pulse Ox O2 Delivery O2 Flow Rate FiO2 10/17/17 08:41 97.4 65 18 119/58 (78) 94 10/17/17 06:27 97.4 87 18 127/62 (83) 96 10/17/17 05:46 97.0 71 16 131/63 (85) 98 Room Air 10/17/17 01:34 96.0 10/17/17 01:31 96.0 52 14 103/55 (71) 96 I/O 10/16/17 10/16/17 10/16/17 10/17/17 10/17/17 10/17/17 07:00 15:00 23:00 07:00 15:00 23:00 Intake Total 0 ml Output Total 300 ml Balance -300 ml Intake IV Total 0 ml Output Urine Total 300 ml Result Diagram: 10/17/17 0150 10/17/17 0150 Other Results Laboratory Tests Test 10/17/17 01:50 10/17/17 04:22 White Blood Count 14.3 TH/MM3 Red Blood Count 5.10 MIL/MM3 Hemoglobin 15.1 GM/DL Hematocrit 44.1 % Mean Corpuscular Volume 86.4 FL Mean Corpuscular Hemoglobin 29.6 PG Mean Corpuscular Hemoglobin Concent 34.2 % Red Cell Distribution Width 14.0 % Platelet Count 333 TH/MM3 Mean Platelet Volume 7.5 FL Neutrophils (%) (Auto) 79.7 % Lymphocytes (%) (Auto) 11.5 % Monocytes (%) (Auto) 7.8 % Eosinophils (%) (Auto) 0.5 % Basophils (%) (Auto) 0.5 % Neutrophils # (Auto) 11.4 TH/MM3 Lymphocytes # (Auto) 1.6 TH/MM3 Monocytes # (Auto) 1.1 TH/MM3 Eosinophils # (Auto) 0.1 TH/MM3 Basophils # (Auto) 0.1 TH/MM3 CBC Comment DIFF FINAL Differential Comment Blood Urea Nitrogen 64 MG/DL Creatinine 5.04 MG/DL Random Glucose 114 MG/DL Total Protein 7.8 GM/DL Albumin 3.4 GM/DL Calcium Level 9.6 MG/DL Magnesium Level 2.1 MG/DL Alkaline Phosphatase 61 U/L Aspartate Amino Transf (AST/SGOT) 37 U/L Alanine Aminotransferase (ALT/SGPT) 24 U/L Total Bilirubin 0.5 MG/DL Sodium Level 133 MEQ/L Potassium Level 4.8 MEQ/L Chloride Level 95 MEQ/L Carbon Dioxide Level 24.6 MEQ/L Anion Gap 13 MEQ/L Estimat Glomerular Filtration Rate 8 ML/MIN Lactic Acid Level 1.3 mmol/L Ammonia 51 MCMOL/L Total Creatine Kinase 69 U/L Troponin I 0.09 NG/ML Lipase 322 U/L Free Thyroxine 0.97 NG/DL Free Triiodothyronine (T3) pg/dL 2.59 PG/ML Thyroid Stimulating Hormone 3rd Gen 5.560 uIU/ML Salicylates Level LESS THAN 1.7 MG/DL Acetaminophen Level LESS THAN 2.0 MCG/ML Ethyl Alcohol Level LESS THAN 3 MG/DL Urine Color YELLOW Urine Turbidity HAZY Urine pH 5.5 Urine Specific [place] 1.016 Urine Protein 30 mg/dL Urine Glucose (UA) NEG mg/dL Urine Ketones NEG mg/dL Urine Occult Blood SMALL Urine Nitrite NEG Urine Bilirubin NEG Urine Urobilinogen LESS THAN 2.0 MG/DL Urine Leukocyte Esterase LARGE Urine RBC 4 /hpf Urine WBC 103 /hpf Urine WBC Clumps OCC Urine Squamous Epithelial Cells 4 /hpf Urine Bacteria MANY /hpf Urine Hyaline Casts 24 /lpf Urine Mucus MANY /lpf Microscopic Urinalysis Comment CATH-CULTURE IND Imaging Last Impressions Chest X-Ray 10/17/17 0148 Signed Impressions: Service Date/Time: Tuesday, October 17, 2017 02:09 - CONCLUSION: Large left perihilar mass. Recommend CT chest with contrast for further evaluation Freddy Posada MD Renal Ultrasound 10/17/17 0000 Signed Impressions: Service Date/Time: Tuesday, October 17, 2017 08:00 - CONCLUSION: Normal appearing kidneys without hydronephrosis or mass Jass Pinzon MD FACR Objective Remarks GENERAL: A well developed and well nourished female in no acute distress. She is blind and has a Mitchell in that has collected 100ml of urine so far. SKIN: Warm and dry. NECK: Supple, trachea midline. No JVD or lymphadenopathy. CARDIOVASCULAR: Regular rate and rhythm without murmurs, gallops, or rubs. RESPIRATORY: Breath sounds diminished bilaterally. No accessory muscle use and no crackles, wheezes, or rhonchi. GASTROINTESTINAL: Abdomen soft, non-tender, nondistended. No rebound tenderness. Bowel sounds are hypoactive. Mild suprapubic tenderness. MUSCULOSKELETAL: No cyanosis, or edema. BACK: Nontender without obvious deformity. No CVA tenderness. Medications and IVs Current Medications Medications (Trade) Dose Ordered Sig/Apvan Route PRN Reason Start Time Stop Time Status Last Admin Dose Admin Sodium Chloride (NS Flush) 2 ml UNSCH PRN IV FLUSH FLUSH AFTER USING IV ACCESS 10/17/17 04:00 Sodium Chloride (NS Flush) 2 ml BID IV FLUSH 10/17/17 09:00 Acetaminophen (Tylenol) 650 mg Q4H PRN PO TEMP > 100.4 10/17/17 04:00 Ondansetron HCl (Zofran Inj) 4 mg Q6H PRN IVP NAUSEA OR VOMITING 10/17/17 04:00 Naloxone HCl (Narcan Inj) 0.4 mg UNSCH PRN IV PUSH SEE LABEL COMMENTS 10/17/17 04:00 Sodium Chloride 1,000 ml @ 100 mls/hr Q10H IV 10/17/17 04:15 10/17/17 05:45 Ceftriaxone Sodium 1000 mg/ Sodium Chloride 100 ml @ 200 mls/hr Q24H IV 10/17/17 05:00 10/17/17 05:45 Dextrose (D50w (Vial) Inj) 50 ml UNSCH PRN IV PUSH HYPOGLYCEMIA-SEE COMMENTS 10/17/17 05:00 Glucagon (Glucagon Inj) 1 mg UNSCH PRN OTHER HYPOGLYCEMIA-SEE COMMENTS 10/17/17 05:00 Insulin Aspart (NovoLOG SUPPLEMENTAL SCALE) 1 ACHS SLIDING SCALE SQ 10/17/17 08:00 Budesonide/ Formoterol Fumarate (Symbicort 160-4.5 Mcg Inh) 2 puff Q12HR INH 10/17/17 09:00 Albuterol/ Ipratropium (Duoneb Neb) 1 ampule Q4HR NEB PRN INH SOB/Wheezing 10/17/17 05:00 Heparin Sodium (Porcine) (Heparin Inj) 5,000 units Q12HR SQ 10/17/17 09:00 A/P Assessment and Plan This is a 72 year old female who presented with diarrhea due to an unknown cause. She has been unable to hold fluid or food in so she likely became very dehydrated which damaged her kidneys and caused some ischemia elevating her troponin. Her electrolytes are consistent with loss from diarrhea. She has a Mitchell in because she has not produced much urine which is likely due to her dehydration. 1. Diarrhea -oral fluid hydration and normal diet as tolerated -Zofran PRN -Follow CMP -stool cultures and C diff are pending 2. UTI Continue Rocephin. Follow urine cultures. - U/S was normal with no hydronephrosis 3. Elevated Troponin -likely due to dehydration and renal failure. No cardiac symptoms. 4. VERO -likely secondary to dehydrations, will trend BUN and Cr -Keep Mitchell in for now. 5. COPD -DuoNebs as needed -Symbicort -CXR showed perihilar mass so we will order f/u CT with contrast of chest when VERO improves 6. Subclinical Hypothyroidism -TSH was elevated at 5.5 but T4 and T3 are normal and she denies any symptoms so this is subclinical 7. Prophylaxis -Heparin 5000 SC Q12 hours Attending Note The exam, history, and the medical decision-making described in the above note were completed with the assistance of the medical student. I reviewed, edited and confirmed the findings presented. I attest that I had a [id number] encounter with the patient on the same day, and personally performed and documented my assessment and findings in the medical record. Vince Arreguin Oct 17, 2017 09:40 Tangela Swanson MD Oct 17, 2017 16:13
--- NOTE | 2017-10-17 13:54 | PD.CONS ---
HPI Service Nephrology Consult Requested By Dr. Swanson Reason for Consult Acute renal failure Primary Care Physician Unknown History of Present Illness Patient is a 72-year-old white female this history of diabetes, hypertension who is , Complains of having diarrhea for the last few days came in with dehydration creatinine of 5.04 and baseline creatinine of 0.9-1.07 in August 2016 Patient denies dysuria or burning Denies kidney stone, ultrasound of the kidney was normal Review of Systems Constitutional: COMPLAINS OF: Fatigue Eyes: COMPLAINS OF: Vision loss Gastrointestinal: COMPLAINS OF: Abdominal pain, Diarrhea Neurologic: COMPLAINS OF: Abnormal gait Past Family Social History Allergies: Coded Allergies: penicillin G (Unverified Allergy, Intermediate, Rash, 02/19/17) Past Medical History Blindness Diabetes Hypertension Renal insufficiency Past Surgical History Left foot eyes Tonsillectomy Reported Medications Reported Meds & Active Scripts Active Cozaar (Losartan Potassium) 50 Mg Tab 50 Mg PO BID Lopressor (Metoprolol Tartrate) 50 Mg Tab 50 Mg PO Q12HR Hydrocodone-Acetaminophen 5-325 mg Tab 1 Tab PO Q4H PRN Symbicort Inh (Budesonide/Formoterol Fumarate) 160-4.5 Mcg/Act Aero 2 Puff INH Q12HR Norvasc (Amlodipine Besylate) 10 Mg Tab 10 Mg PO DAILY Reported Catapres (Clonidine) 0.2 Mg Tab 0.2 Mg PO TID Duoneb (Ipratropium-Albuterol Neb) 0.5-2.5 Mg/3 Ml Neb 1 Nebule INH Q4HR NEB Albuterol Neb (Albuterol Sulfate) 2.5 Mg/0.5 Ml Neb 2.5 Mg NEB Q4HR NEB PRN Note: The Albuterol Sulfate Inhalation Solution is concentrated and must be diluted. Read complete instructions carefully before using. Pravastatin 20 Mg Tab 20 Mg PO DAILY Active Ordered Medications Current Medications Medications (Trade) Dose Ordered Sig/Pavan Route Start Time Stop Time Status Last Admin (NS Flush) 2 ml UNSCH PRN IV FLUSH 10/17/17 04:00 (NS Flush) 2 ml BID IV FLUSH 10/17/17 09:00 10/17/17 09:31 (Tylenol) 650 mg Q4H PRN PO 10/17/17 04:00 (Zofran Inj) 4 mg Q6H PRN IVP 10/17/17 04:00 (Narcan Inj) 0.4 mg UNSCH PRN IV PUSH 10/17/17 04:00 Sodium Chloride 1,000 ml @ 100 mls/hr Q10H IV 10/17/17 04:15 10/17/17 12:33 Ceftriaxone Sodium 1000 mg/ Sodium Chloride 100 ml @ 200 mls/hr Q24H IV 10/17/17 05:00 10/17/17 05:45 (D50w (Vial) Inj) 50 ml UNSCH PRN IV PUSH 10/17/17 05:00 (Glucagon Inj) 1 mg UNSCH PRN OTHER 10/17/17 05:00 (NovoLOG SUPPLEMENTAL SCALE) 1 ACHS SLIDING SCALE SQ 10/17/17 08:00 (Symbicort 160-4.5 Mcg Inh) 2 puff Q12HR INH 10/17/17 09:00 10/17/17 09:32 (Duoneb Neb) 1 ampule Q4HR NEB PRN INH 10/17/17 05:00 (Heparin Inj) 5,000 units Q12HR SQ 10/17/17 09:00 10/17/17 09:31 Family History Noncontributory Social History Quit smoking 2011 denies alcohol use Physical Exam Vital Signs Vital Signs Date Time Temp Pulse Resp B/P (MAP) Pulse Ox O2 Delivery O2 Flow Rate FiO2 10/17/17 12:00 88 10/17/17 08:41 97.4 65 18 119/58 (78) 94 10/17/17 08:00 98.5 64 17 120/56 (77) 95 10/17/17 06:27 97.4 87 18 127/62 (83) 96 10/17/17 05:46 97.0 71 16 131/63 (85) 98 Room Air 10/17/17 01:34 96.0 10/17/17 01:31 96.0 52 14 103/55 (71) 96 Physical Exam GENERAL: Well-nourished, well-developed patient. SKIN: Warm and dry. HEAD: Normocephalic. EYES: Blindness. NECK: Supple, trachea midline. No JVD or lymphadenopathy. CARDIOVASCULAR: Regular rate and rhythm without murmurs, gallops, or rubs. RESPIRATORY: Breath sounds equal bilaterally. No accessory muscle use. GASTROINTESTINAL: Abdomen soft, non-tender, nondistended. EXTREMITIES: No cyanosis, or edema. NEUROLOGICAL: Awake, alert, and oriented x 3. Non-focal. Laboratory Laboratory Tests Test 10/17/17 01:50 10/17/17 04:22 White Blood Count 14.3 Red Blood Count 5.10 Hemoglobin 15.1 Hematocrit 44.1 Mean Corpuscular Volume 86.4 Mean Corpuscular Hemoglobin 29.6 Mean Corpuscular Hemoglobin Concent 34.2 Red Cell Distribution Width 14.0 Platelet Count 333 Mean Platelet Volume 7.5 Neutrophils (%) (Auto) 79.7 Lymphocytes (%) (Auto) 11.5 Monocytes (%) (Auto) 7.8 Eosinophils (%) (Auto) 0.5 Basophils (%) (Auto) 0.5 Neutrophils # (Auto) 11.4 Lymphocytes # (Auto) 1.6 Monocytes # (Auto) 1.1 Eosinophils # (Auto) 0.1 Basophils # (Auto) 0.1 CBC Comment DIFF FINAL Differential Comment Blood Urea Nitrogen 64 Creatinine 5.04 Random Glucose 114 Total Protein 7.8 Albumin 3.4 Calcium Level 9.6 Magnesium Level 2.1 Alkaline Phosphatase 61 Aspartate Amino Transf (AST/SGOT) 37 Alanine Aminotransferase (ALT/SGPT) 24 Total Bilirubin 0.5 Sodium Level 133 Potassium Level 4.8 Chloride Level 95 Carbon Dioxide Level 24.6 Anion Gap 13 Estimat Glomerular Filtration Rate 8 Lactic Acid Level 1.3 Ammonia 51 Total Creatine Kinase 69 Troponin I 0.09 Lipase 322 Free Thyroxine 0.97 Free Triiodothyronine (T3) pg/dL 2.59 Thyroid Stimulating Hormone 3rd Gen 5.560 Salicylates Level LESS THAN 1.7 Acetaminophen Level LESS THAN 2.0 Ethyl Alcohol Level LESS THAN 3 Urine Color YELLOW Urine Turbidity HAZY Urine pH 5.5 Urine Specific [place] 1.016 Urine Protein 30 Urine Glucose (UA) NEG Urine Ketones NEG Urine Occult Blood SMALL Urine Nitrite NEG Urine Bilirubin NEG Urine Urobilinogen LESS THAN 2.0 Urine Leukocyte Esterase LARGE Urine RBC 4 Urine WBC 103 Urine WBC Clumps OCC Urine Squamous Epithelial Cells 4 Urine Bacteria MANY Urine Hyaline Casts 24 Urine Mucus MANY Microscopic Urinalysis Comment CATH-CULTURE IND Date/Time Source Procedure Growth Status 10/17/17 04:22 Urine Catheterized Urine Urine Culture Pending Received Result Diagram: 10/17/17 0150 10/17/17 0150 Imaging Last Impressions Chest X-Ray 10/17/17 0148 Signed Impressions: Service Date/Time: Tuesday, October 17, 2017 02:09 - CONCLUSION: Large left perihilar mass. Recommend CT chest with contrast for further evaluation Freddy Posada MD Renal Ultrasound 10/17/17 0000 Signed Impressions: Service Date/Time: Tuesday, October 17, 2017 08:00 - CONCLUSION: Normal appearing kidneys without hydronephrosis or mass Jass Pinzon MD FACR Assessment and Plan Problem List: (1) Acute renal failure ICD Codes: N17.9 - Acute kidney failure, unspecified Plan: Continue to hydrate with normal saline at 100 cc an hour Follow BMP Avoid nephrotoxic agent (2) Dehydration ICD Codes: E86.0 - Dehydration Plan: Hydration as above (3) Hypertension, uncontrolled ICD Codes: I10 - Essential (primary) hypertension Status: Acute Plan: Monitor Edith Delvalle MD Oct 17, 2017 13:54
[2017-10-18] VITALS (8 sets, daily range): BP systolic 138–182; BP diastolic 72–95; PULSE 86–103; RESP 19–21; TEMP 98–98.5; O2SAT 94–100
[2017-10-18] MEDS: cefTRIAXone INJ 1,000 MG in SODIUM CHLORIDE 0.9% INJ 100 ML IV SCH (03:37)
[2017-10-18] MEDS: INSULIN ASPART SUPPLEMENTAL SCALE SQ SCH ×4 (08:00→21:23)
[2017-10-18] MEDS: SODIUM CHLOR 0.9% 1000 ML INJ 1,000 ML IV SCH ×2 (08:32→18:12)
[2017-10-18] MEDS: HEPARIN SODIUM - SQ 10,000 UNITS/ML VIAL SQ SCH ×2 (08:32→21:22)
[2017-10-18] MEDS: BUDESONIDE-FORMOTEROL 160/4.5 MCG INHALER INH SCH ×2 (08:33→21:18)
[2017-10-18] MEDS: SODIUM CHLORIDE 0.9% FLUSH 10 ML FLUSH IV FLUSH SCH ×2 (08:33→21:22)
--- NOTE | 2017-10-18 10:25 | HHI.NPPN ---
Subjective Interval History patient is non oliguric, labs are not available. Review of Systems General Constitutional: Fatigue Objective Data Data Vital Signs Date Time Temp Pulse Resp B/P (MAP) Pulse Ox O2 Delivery O2 Flow Rate FiO2 10/18/17 08:00 Room Air 10/18/17 04:10 Room Air 10/18/17 04:00 98.1 93 20 138/72 (94) 94 10/18/17 04:00 86 10/18/17 00:00 Room Air 10/18/17 00:00 98.1 97 21 165/87 (113) 95 10/18/17 00:00 96 10/17/17 20:00 Room Air 10/17/17 20:00 98.3 89 21 155/64 (94) 95 10/17/17 20:00 97 10/17/17 16:00 98.1 81 17 106/63 (77) 95 10/17/17 16:00 86 10/17/17 12:00 88 10/17/17 12:00 97.8 85 18 146/63 (90) 96 -: 10/17/17 0150 10/17/17 0150 Physical Exam General Appearance: No Acute Distress Eyes Eye Exam: Pupils Equal Throat Throat Exam: Oral Mucosa [place] & Moist Neck Neck Exam: Neck Supple Pulmonary Resp Exam: Clear Bilaterally, Breath Sounds Equal Cardiology CV Exam: Regular Gastrointestinal/Abdomen GI Exam: Soft, Non-Tender Extremeties Extremities Exam: No Edema Assessment/Plan Problem List: (1) Acute renal failure ICD Codes: N17.9 - Acute kidney failure, unspecified Plan: On IV hydration. Monitor labs. Renal US is negative for hydronephrosis. (2) Dehydration ICD Codes: E86.0 - Dehydration Plan: Hydration as above (3) UTI (urinary tract infection) ICD Codes: N39.0 - Urinary tract infection, site not specified Plan: on antibiotic. Abraham Rebollar MD Oct 18, 2017 10:25
--- NOTE | 2017-10-18 11:08 | EKG ---
Date Performed: 10/17/2017 Time Performed: 02:35:26 PTAGE: 72 years EKG: Sinus rhythm POSSIBLE LEFT ATRIAL ENLARGEMENT LEFT VENTRICULAR HYPERTROPHY AND ST-T CHANGE ABNORMAL ECG Left vent ricular strain pattern is new, cannot exclude ischemia. Clinical correlation needed. PREVIOUS TRACING : 08/04/2016 11.53 DOCTOR: Zen Rivas Interpretating Date/Time 10/18/2017 11:06:53
[2017-10-18] MEDS: FAMOTIDINE 20 MG TAB PO SCH ×2 (12:30→21:00)
--- NOTE | 2017-10-18 14:32 | HHI.PR ---
Subjective Remarks Patient reports she is feeling better. No diarrhea. Eating better. Patient refused lab this morning. Objective Vitals Vital Signs Date Time Temp Pulse Resp B/P (MAP) Pulse Ox O2 Delivery O2 Flow Rate FiO2 10/18/17 12:00 98.0 103 20 156/95 (115) 97 10/18/17 08:00 Room Air 10/18/17 08:00 98.5 92 19 95 10/18/17 04:10 Room Air 10/18/17 04:00 98.1 93 20 138/72 (94) 94 10/18/17 04:00 86 10/18/17 00:00 Room Air 10/18/17 00:00 98.1 97 21 165/87 (113) 95 10/18/17 00:00 96 10/17/17 20:00 Room Air 10/17/17 20:00 98.3 89 21 155/64 (94) 95 10/17/17 20:00 97 10/17/17 16:00 98.1 81 17 106/63 (77) 95 10/17/17 16:00 86 I/O 10/17/17 10/17/17 10/17/17 10/18/17 10/18/17 10/18/17 07:00 15:00 23:00 07:00 15:00 23:00 Intake Total 0 ml 1480 ml 1300 ml Output Total 300 ml 2300 ml Balance -300 ml 1480 ml -1000 ml Intake Oral 480 ml 480 ml IV Total 0 ml 1000 ml 820 ml Output Urine Total 300 ml 2300 ml # Bowel Movements 0 Result Diagram: 10/17/17 0150 10/17/17 0150 Objective Remarks GENERAL: This is a well-nourished, well-developed patient. She is blind. CARDIOVASCULAR: Normal rate and regular rhythm without murmurs, gallops, or rubs. RESPIRATORY: Good respiratory efforts. Breath sounds equal and clear to auscultation bilaterally. GASTROINTESTINAL: Abdomen soft, non-tender, non-distended. Normal active bowel sounds MUSCULOSKELETAL: Extremities without cyanosis, or edema. NEURO: Alert & Oriented x4 to person, place, time, situation. Moves all ext x4 PSYCH: Appropriate mood and affect. A/P Assessment and Plan 72-year-old female with: Acute renal failure BUN/creatinine 64/5.04 Renal ultrasound unremarkable. Lab pending this morning. Nephrology following. Appreciate recommendations continue IV fluid hydration Patient refused lab this morning. Discussed with RN to reinforce the need to obtain labs for accurate treatment. Urinary tract infection UA consistent with UTI Urine culture pending Continue Rocephin Perihilar mass: We will order f/u CT with contrast of chest when VERO improves Hypertension Resume metoprolol and Norvasc. Continue to hold losartan for now given AK I. COPD DuoNeb's as needed Symbicort Diabetes mellitus Sliding-scale insulin Monitor blood glucose Diarrhea: -Resolved Subclinical Hypothyroidism -TSH was elevated at 5.5 but T4 and T3 are normal and she denies any symptoms so this is subclinical Heparin for DVT prophylaxis. Tangela Swanson MD Oct 18, 2017 14:32
[2017-10-18] MEDS: cloNIDine HCL 0.1 MG TAB PO PRN (17:57)
[2017-10-18] MEDS: METOPROLOL TARTRATE 50 MG TAB PO SCH (21:20)
[2017-10-19] VITALS: BP 188/86; PULSE 104; RESP 19; TEMP 97.8; O2SAT 96
[2017-10-19 00:05] VITALS: PULSE 97
[2017-10-19] MEDS: cloNIDine HCL 0.1 MG TAB PO PRN ×2 (00:42→08:45)
[2017-10-19 01:45] VITALS: BP 172/96
[2017-10-19 04:00] VITALS: BP 172/90; PULSE 80; RESP 17; TEMP 97.7; O2SAT 96
[2017-10-19 04:05] VITALS: PULSE 84
[2017-10-19 05:17] LABS: HEMATOCRIT 43.5 % (35.0-46.0); HEMOGLOBIN 15.1 GM/DL (11.6-15.3); MEAN CELL VOLUME 86.3 FL (80.0-100.0); MEAN CORPUSCULAR HEMOGLOBIN 29.9 PG (27.0-34.0); MEAN CORPUSCULAR HGB CONC 34.6 % (32.0-36.0); MEAN PLATELET VOLUME 7.7 FL (7.0-11.0); PLATELET COUNT 356 TH/MM3 (150-450); RED BLOOD COUNT 5.04 MIL/MM3 (4.00-5.30); RED CELL DISTRIBUTION WIDTH 14.3 % (11.6-17.2); WHITE BLOOD COUNT 9.7 TH/MM3 (4.0-11.0)
[2017-10-19 05:34] LABS: BICARBONATE 24.9 MEQ/L (21.0-32.0); CALCIUM 9.3 MG/DL (8.5-10.1); CREATININE 1.01 MG/DL (0.50-1.00)
[2017-10-19] MEDS: cefTRIAXone INJ 1,000 MG in SODIUM CHLORIDE 0.9% INJ 100 ML IV SCH (06:11)
[2017-10-19 08:00] VITALS: BP 190/98; PULSE 85; PULSE 88; RESP 18; TEMP 97.4; O2SAT 95
[2017-10-19] MEDS: INSULIN ASPART SUPPLEMENTAL SCALE SQ SCH ×2 (08:00→12:00)
[2017-10-19] MEDS: SODIUM CHLORIDE 0.9% FLUSH 10 ML FLUSH IV FLUSH SCH (08:45)
[2017-10-19] MEDS: FAMOTIDINE 20 MG TAB PO SCH (08:45)
[2017-10-19] MEDS: BUDESONIDE-FORMOTEROL 160/4.5 MCG INHALER INH SCH (08:45)
[2017-10-19] MEDS: METOPROLOL TARTRATE 50 MG TAB PO SCH (08:45)
[2017-10-19] MEDS: HEPARIN SODIUM - SQ 10,000 UNITS/ML VIAL SQ SCH (08:46)
--- NOTE | 2017-10-19 08:56 | HHI.NPPN ---
Subjective Interval History Renal function has improved. Non oliguric. Review of Systems General Constitutional: Fatigue Objective Data Data 10/19/17 10/20/17 19:00 07:00 Intake Total 100 ml Balance 100 ml IV Total 100 ml Vital Signs Date Time Temp Pulse Resp B/P (MAP) Pulse Ox O2 Delivery O2 Flow Rate FiO2 10/19/17 08:00 Room Air 10/19/17 04:05 84 10/19/17 04:00 97.7 80 17 172/90 (117) 96 10/19/17 01:45 172/96 (121) 10/19/17 00:05 97 10/19/17 00:00 97.8 104 19 188/86 (120) 96 10/18/17 21:25 Room Air 10/18/17 20:05 99 10/18/17 20:00 98.1 96 20 180/88 (118) 100 10/18/17 16:00 98.2 99 20 182/95 (124) 97 10/18/17 16:00 96 10/18/17 12:00 102 10/18/17 12:00 98.0 103 20 156/95 (115) 97 -: 10/19/17 0350 10/19/17 0350 Physical Exam General Appearance: No Acute Distress Eyes Eye Exam: Pupils Equal Throat Throat Exam: Oral Mucosa [place] & Moist Neck Neck Exam: Neck Supple Pulmonary Resp Exam: Clear Bilaterally, Breath Sounds Equal Cardiology CV Exam: Regular Gastrointestinal/Abdomen GI Exam: Soft, Non-Tender Extremeties Extremities Exam: No Edema Assessment/Plan Problem List: (1) Acute renal failure ICD Codes: N17.9 - Acute kidney failure, unspecified Plan: Improved, resolving. IVF can be stopped. She can be discharged from renal standpoint. (2) Dehydration ICD Codes: E86.0 - Dehydration Plan: Hydration as above (3) UTI (urinary tract infection) ICD Codes: N39.0 - Urinary tract infection, site not specified Plan: on antibiotic. Abraham Rebollar MD Oct 19, 2017 08:56
[2017-10-19] MEDS ORDERED: HYDR-3516 PO (10:01)
--- NOTE | 2017-10-19 10:02 | HHI.DS ---
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 The patient reports decreased p.o. intake 3 days with epigastric abdominal pain and emesis 1. She denies any fever/chills. No chest pain or shortness of breath. No lateralizing signs/symptoms. Endorses mild weakness/fatigue. Patient was found to be in acute renal failure with a creatinine of 5.04, baseline 1. She denies any CVA tenderness. Was unable to produce urine in the emergency department despite 3 L. CBC/BMP: 10/19/17 0350 10/19/17 0350 Significant Findings Laboratory Tests Test 10/17/17 01:50 10/17/17 04:22 10/19/17 03:50 White Blood Count 14.3 TH/MM3 (4.0-11.0) Neutrophils (%) (Auto) 79.7 % (16.0-70.0) Neutrophils # (Auto) 11.4 TH/MM3 (1.8-7.7) Monocytes # (Auto) 1.1 TH/MM3 (0-0.9) Blood Urea Nitrogen 64 MG/DL (7-18) 23 MG/DL (7-18) Creatinine 5.04 MG/DL (0.50-1.00) 1.01 MG/DL (0.50-1.00) Random Glucose 114 MG/DL (74-106) 111 MG/DL (74-106) Sodium Level 133 MEQ/L (136-145) 135 MEQ/L (136-145) Chloride Level 95 MEQ/L (98-107) Estimat Glomerular Filtration Rate 8 ML/MIN (>89) 54 ML/MIN (>89) Ammonia 51 MCMOL/L (11-32) Troponin I 0.09 NG/ML (0.02-0.05) Thyroid Stimulating Hormone 3rd Gen 5.560 uIU/ML (0.358-3.740) Salicylates Level LESS THAN 1.7 MG/DL Acetaminophen Level LESS THAN 2.0 MCG/ML Urine Turbidity HAZY (CLEAR) Urine Protein 30 mg/dL (NEG-TRACE) Urine Occult Blood SMALL (NEG) Urine Leukocyte Esterase LARGE (NEG) Urine RBC 4 /hpf (0-3) Urine WBC 103 /hpf (0-5) Urine WBC Clumps OCC (NONE) Urine Bacteria MANY /hpf (NONE) Urine Mucus MANY /lpf (OCC) Potassium Level 3.4 MEQ/L (3.5-5.1) Imaging Last Impressions Chest X-Ray 10/17/17 0148 Signed Impressions: Service Date/Time: Tuesday, October 17, 2017 02:09 - CONCLUSION: Large left perihilar mass. Recommend CT chest with contrast for further evaluation Freddy Posada MD Renal Ultrasound 10/17/17 0000 Signed Impressions: Service Date/Time: Tuesday, October 17, 2017 08:00 - CONCLUSION: Normal appearing kidneys without hydronephrosis or mass Jass Pinzon MD FACR PE at Discharge GENERAL: This is a well-nourished, well-developed patient. She is blind. CARDIOVASCULAR: Normal rate and regular rhythm without murmurs, gallops, or rubs. RESPIRATORY: Good respiratory efforts. Breath sounds equal and clear to auscultation bilaterally. GASTROINTESTINAL: Abdomen soft, non-tender, non-distended. Normal active bowel sounds MUSCULOSKELETAL: Extremities without cyanosis, or edema. NEURO: Alert & Oriented x4 to person, place, time, situation. Moves all ext x4 PSYCH: Appropriate mood and affect. Pt update on day of discharge Patient reports she is feeling well. We discussed discharge planning at length. She refused a home health on home PT. States she feels back to her baseline and can manage on her own. Hospital Course 72-year-old female admitted and treated for the following: Acute renal failure BUN/creatinine 64/5.04 on presentation Renal ultrasound unremarkable. Patient was treated with IV fluid and her renal functions returned to baseline. She was followed by nephrology. E. coli UTI Patient treated Rocephin. To complete treatment with cefuroxime outpatient. Perihilar mass: Patient denied any respiratory symptoms. I have ordered a CTA of the chest to be done outpatient. Discussed with triple Hospitalist RN to assist patient in arranging outpatient test. Hypertension Resume metoprolol and Norvasc. Patient also takes Clonidine scheduled. Resume home meds except for Valsartan. Outpatient follow up advised. COPD DuoNeb's as needed Symbicort Diabetes mellitus Sliding-scale insulin Monitor blood glucose Diarrhea: -Resolved Subclinical Hypothyroidism -TSH was elevated at 5.5 but T4 and T3 are normal and she denies any symptoms so this is subclinical Pt Condition on Discharge: Good Discharge Disposition: Discharge Home Discharge Time: > 30 minutes Discharge Instructions DIET: Follow Instructions for: Heart Healthy Diet Activities you can perform: Regular-No Restrictions Follow up Referrals: PCP Follow-up - 1 Week New Medications: Cefuroxime (Cefuroxime) 500 Mg Tab 500 MG PO BID for Infection, #4 TAB 0 Refills Changed Medications: Hydrocodone-Acetaminophen (Hydrocodone-Acetaminophen) 5-325 mg Tab 1 TAB PO Q4H PRN for severe pain, #10 TAB (Changed from: 25) Continued Medications: Albuterol Neb (Albuterol Neb) 2.5 Mg/0.5 Ml Neb 2.5 MG NEB Q4HR NEB PRN for breathing, EA Note: The Albuterol Sulfate Inhalation Solution is concentrated and must be diluted. Read complete instructions carefully before using. Amlodipine (Norvasc) 10 Mg Tab 10 MG PO DAILY for hypertension, #30 TAB Budesonide-Formoterol Inh (Symbicort Inh) 160-4.5 Mcg/Act Aero 2 PUFF INH Q12HR for COPD, #1 INHALER Clonidine (Catapres) 0.2 Mg Tab 0.2 MG PO TID for Blood Pressure Management, #60 TAB 0 Refills Ipratropium-Albuterol Neb (Duoneb) 0.5-2.5 Mg/3 Ml Neb 1 NEBULE INH Q4HR NEB for SHORTNESS OF BREATH, #120 NEBULE 0 Refills Metoprolol Tartrate (Lopressor) 50 Mg Tab 50 MG PO Q12HR for HTN, #60 TAB Pravastatin (Pravastatin) 20 Mg Tab 20 MG PO DAILY for Cholesterol Management, #30 TAB 0 Refills Discontinued Medications: Losartan (Cozaar) 50 Mg Tab 50 MG PO BID for HTN, #60 TAB Tangela Swanson MD Oct 19, 2017 10:02
--- NOTE | 2017-10-19 10:02 | HHI.DCPOC ---
Discharge Care Plan Diagnosis: (1) Acute renal failure (2) UTI (urinary tract infection) (3) Dehydration (4) HTN (hypertension) Goals to Promote Your Health * To prevent worsening of your condition and complications * To maintain your health at the optimal level Directions to Meet Your Goals Take your medications as prescribed Follow your dietary instruction Follow activity as directed Keep your appointments as scheduled Take your immunizations and boosters as scheduled If your symptoms worsen call your PCP, if no PCP go to Urgent Care Center or Emergency Room Smoking is Dangerous to Your Health. Avoid second hand smoke Call the 24-hour hour crisis hotline for domestic abuse at Tangela Swanson MD Oct 19, 2017 10:02
[2017-10-19] MEDS ORDERED: CEFU1TAB20 PO (11:11)
[2017-10-19 11:19] LABS: LYMPHOCYTES 28 % (9-44); MONOCYTES 9 % (0-8); NEUTROPHIL # MANUAL DIFF 5.9 TH/MM3 (1.8-7.7); POLYS (SEG NEUTROPHILS) 61 % (16-70); TOXIC VACUOLATION PRESENT (NONE SEEN)
== END 2017-10-19 13:28 | disposition home or self-care (01) | DRG 683 ==
LOC: NEPC 01:18 → NEDA 03:49 → N04A 09:06
PROVIDERS: ADMIT Family Medicine; ATTEND Family Medicine
DX: N17.9 Acute kidney failure, unspecified (principal); N39.0 Urinary tract infection, site not specified; I95.9 Hypotension, unspecified; E11.9 Type 2 diabetes mellitus without complications; J44.9 Chronic obstructive pulmonary disease, unspecified; I10 Essential (primary) hypertension; B96.20 Unspecified Escherichia coli [E. coli] as the cause of diseases classified elsewhere; E86.0 Dehydration; H54.8 Legal blindness, as defined in USA; E78.5 Hyperlipidemia, unspecified; K58.0 Irritable bowel syndrome with diarrhea; E02 Subclinical iodine-deficiency hypothyroidism; Z87.891 Personal history of nicotine dependence
CPT/HCPCS: 71045; 76775; 76937; 80048; 80053; 80307; 81001; 82140; 82550; 82948; 83605; 83690; 83735; 84439; 84443; 84481; 84484; 85007; 85025; 85027; 86850; 86900; 86901; 87077; 87086; 87186; 93005; 94664; 96360; J0696; J1644; J1815; J7030; J7040